=== PATIENT | male | born 1940 | race Caucasian/White ===

== ENCOUNTER 2021-03-10 04:38 | Observation (INO) | payer OTHER, BC ==
--- OUTSIDE RECORDS SUMMARY | 2021-03-10 04:41 | XMS REPORT | Continuity of Care Document ---
:1940 Author Organization [facility] t Address [address] [place] [address] Care Team Providers Name Role Phone CHUCK Attending Clinician Unavailable CHUCK Attending Clinician Unavailable Pcp, Does Not Have A Attending Clinician Danyel Burrell MD Attending Clinician Burak Carter MD Attending Clinician Serene Hernandez DO Attending Clinician Doctor Unassigned, Name Attending Clinician Unavailable ERWIN CALLEJAS Attending Clinician Unavailable Payers Payer Name Policy Type Policy Number Effective Date Expiration Date S ource MEDICARE PART A [id number] 2006 AND B 00:00:00 Problems Condition Condition Condition Status Onset Resolution Last Treating Co mments Source Name Details Category Date Date Treatment Clinician Date History of History of Problem Resolve [facility] hemorrhoid hemorrhoid d it y of s s [place] [facility] History of History of Problem Resolve [facility] Hernia Hernia d ity of [place] [facility] History of History of Problem Resolve [facility] kidney kidney d ity of stones stones [place] [facility] History of History of Problem Resolve [facility] pneumonia pneumonia d ity of [place] [facility] ans Trochanter Trochanter Problem Active U nivers ic ic ity of bursitis bursitis [place] of left of left Physici hip hip ans Osteoarthr Osteoarthr Problem Active U nivers itis of itis of ity of acromiocla acromiocla [place] vicular vicular Physici joint joint ans Cervical Cervical Problem Active Unive rs strain strain ity of [place] [facility] ans Glenoid Glenoid Problem Active Univers labrum labrum ity of tear, tear, [place] initial initial Physici encounter encounter ans Left Left Problem Active Univers supraspina supraspina it y of tus tus [place] tendinitis tendinitis Ph ysici ans Partial Partial Problem Active Univers tear of tear of ity of left left [place] subscapula subscapula Ph ysici ris ris ans tendon, tendon, initial initial encounter encounter Tear of Tear of Problem Active Univers left left ity of glenoid glenoid [place] labrum, labrum, Physici initial initial ans encounter encounter Adhesive Adhesive Problem Active Unive rs capsulitis capsulitis it y of of left of left [place] shoulder shoulder Physic i ans Subscapula Subscapula Problem Active U nivers ris ris [place] of tendinitis tendinitis [place] of left of left Physici shoulder shoulder ans Superior Superior Problem Active Unive rs glenoid glenoid ity of labrum labrum [place] lesion of lesion of Phys ici right right ans shoulder, shoulder, initial initial encounter encounter Rupture of Rupture of Problem Active U nivers right right ity of supraspina [place]ina [place] tus tus Physici tendon, tendon, ans initial initial encounter encounter Rupture of Rupture of Problem Active U nivers supraspina supraspina it y of tus tus [place] tendon, tendon, Physici left, left, ans initial initial encounter encounter Allergies, Adverse Reactions, Alerts Allergy Allergy Status Severity Reaction(s) Onset Inactive Treating Comm ents Source Name Type Date Date Clinician Cipro Allergy Active Univers to drug ity of (finding [place] ) Physici ans codeine Allergy Active Univers to drug ity of (finding [place] ) Physici ans sulfa Allergy Active Univers to drug ity of (finding [place] ) Physici ans Family History Family Member Diagnosis Comments Start Date Stop Date Source Unknown Family history of Family History Uni versity of Family Member diabetes mellitus [place] [facility] Unknown Family history of Family History Uni versity of Family Member arthritis [place] [facility]i cians Unknown Family history of Family History Uni versity of Family Member cerebrovascular [place] [facility] accident (CVA) Medications Ordered Filled Start Stop Current Ordering Indication Dosage Frequency Signature Comments Components Source Medication Medication Date Date Medication? Clinician (SIG) Name Name Meloxicam Meloxicam Yes SHEY CAGLE TAKE 1 Univers 15 MG Oral 15 MG Oral 2-09 M.D. TABLET BY ity of Tablet Tablet 00:00: MOUTH [place] 00 DAILY Physici NEEDED ans traMADol traMADol Yes SHEY CAGLE Q4H TAKE 1 TO Univers HCl - 50 MG HCl - 50 MG 2-08 M.D. 2 TABLETS ity of Oral Tablet Oral Tablet 00:00: EVERY 4 [place] 00 HOURS Physici NEEDED FOR ans PAIN. Methocarbam Methocarbam 2017-08 Yes AILEEN Q0.3333D TAKE 1 Univers ol 500 MG ol 500 MG 0-09 LI-MAHAD TABLET 3 ity of Oral Tablet Oral Tablet 00:00: JÚNIOR M.D. TIMES [place] 00 DAILY. Physici ans Propafenone Propafenone Yes U nivers HCl TABS HCl TABS ity of [place] Physici ans Tamsulosin Tamsulosin Yes Uni vers HCl - 0.4 HCl - 0.4 ity o f MG Oral MG Oral [place] Capsule Capsule Physici ans Levothyroxi Levothyroxi Yes U nivers ne Sodium ne Sodium ity o f TABS TABS [place] [facility] ans Procedures Procedure Date / Time Performing Clinician Source Performed MR Shoulder w/wo 2020-10-16 00:00:00 [facility] contrast [id number] Physicians MR Shoulder w contrast 2020-09-15 00:00:00 [facility] [id number] Physicians MR Shoulder w contrast 2019-08-06 00:00:00 [facility] [id number] Physicians MRI Spine cervical wo 2019-08-06 00:00:00 [facility] contrast [id number] Physicians [U] XRAY SHOULDER MIN 2 2019-02-12 00:00:00 [facility] LEFT [id number] Physicians MR Shoulder wo contrast 2018-10-06 00:00:00 [facility] 47955 Physicians [U] XRAY HIP UNILATERAL 2018-03-27 00:00:00 [facility] MIN 2 S LEFT [id number] Physicians [U] XRAY SPINE 2018-03-27 00:00:00 [facility] [place] LUMBOSACRAL 2 OR 3 S Physician s [id number] MR Shoulder wo contrast 2018-03-07 00:00:00 [facility] 07870 Physicians [U] XRAY SHOULDER MIN 2 2018-03[facility] SPINE CERVICAL 2018-03-02 00:00:00 [facility] 2 OR 3 S 53070 Physicians History of Hernia [facility] repair Physicians Plan of Care Planned Activity Planned Date Details Comments Source Diagnostic Test 2018-10-06 MR Shoulder wo [facility] Pending 00:00:00 contrast [id number] Physicians [code = 16892] Diagnostic Test 2018-10-06 MR Shoulder wo [facility] Pending 00:00:00 contrast [id number] Physicians [code = 67550] Encounters Start End Encounter Admission Attending Care Care Encounter Source Date/Time Date/Time Type Type Clinicians Facility Department ID 2021-01-13 Outpatient SHEY CAGLE [facility] [id number] [place] 11:46:07 [place] 2021-01-13 Outpatient SHEY CAGLE [facility] [id number] [place] 11:45:01 [facility] 2021-01-06 Outpatient SHEY CAGLE [facility] [id number] [place] 12:33:48 [facility] 2021-01-06 Outpatient SHEY CAGLE [facility] [id number] [place] 11:22:51 [facility] 2021-01-01 Outpatient SHEY CAGLE [facility] [id number] [place] 12:19:34 [facility] 2021-01-01 Outpatient SHEY CAGLE [facility] [id number] [place] 12:19:02 [facility] 2020-12-26 Outpatient SHEY CAGLE [facility] [id number] [place] 16:09:30 [facility] 2021-02-18 2021-02-18 Emergency E [facility]BL [facility] [id number] [facility]BL 09:34:00 09:34:00 2021-02-10 2021-02-10 Emergency E [facility]BL MED [id number] MHBL 10:07:00 10:07:00 2021-01-27 2021-01-27 Office Shey Cagle [facility] [id number] 10:16:35 10:57:13 Visit [place] [id number] MEDICAL [id number] PLAZA 1 [id number] 2021-01-20 2021-01-20 Office Shey Cagle [facility] [id number] 10:37:29 13:04:49 Visit [place] [id number] MEDICAL [id number] PLA[place] 0 [id number] 2021-01-13 2021-01-13 Office Shey Cagle [facility] [id number] 10:27:11 11:43:26 Visit [place] [id number] MEDICAL [id number] PLA[place] 2 [id number] 2021-01-06 2021-01-06 Office Shey Cagle [facility] [id number] 11:22:45 15:21:16 Visit [place] [id number] MEDICAL [id number] PLA[place] 3 [id number] 2021-01-01 2021-01-01 Office ChuckFátimaan [facility] [id number] 09:47:54 12:20:16 Visit [place] [id number] MEDICAL [id number] [place] 7 [id number] 2020-12-04 2020-12-04 Appointmen DELICIA CAGLE [facility] [id number] Univers 15:45:00 15:45:00 t; SHEY CAGLE M.D. - [place] Lockett M.D. [place] [facility] ans 2020-11-18 2020-11-18 Appointmen DELICIA [facility] [id number] Univers 15:15:00 15:15:00 t; SHEY CAGLE M.D. - [place] Cathryn M.D. [place] [facility] ans 2020-11-13 2020-11-13 Outpatient MHSE MHSE [id number] MH 07:13:00 07:13:00 [facility] 2020-11-08 2020-11-08 Telephone Pcp, RUST [id number] 00:00:00 00:00:00 Patient Scooter [id number] Does Not Renu 4.2.7.2.686 Have A Professio [id number] [facility] 204 [facility] 2020-11-05 2020-11-05 Emergency Harkey, RUST [id number] 13:40:00 17:38:00 Kwesi A [facility] [id number] League 4.2.7.2.686 [facility] [id number] [address] ([facility]) 2020-11-01 2020-11-01 Emergency Yariil, RUST [id number] 06:18:00 09:48:00 Alejandro Burak [place] 350.1.13.10 [place] 4.2.7.2.686 [place] [id number] 2020-10-31 2020-10-31 Emergency David, RUST [id number] 08:01:00 09:37:00 Jen Helms 350.1.13.10 [place] 4.2.7.2.686 [facility] [id number] 2020-10-31 2020-10-31 Orders Doctor JET [id number] 00:00:00 00:00:00 Only Unassigned, STAR 350.1.13.10 [place] [facility] 4.2.7.2.686 [id number] 2020-10-23 2020-10-23 Appointmen DELICIA CAGLE [facility] [id number] Univers 09:15:00 09:15:00 t; SHEY CAGLE M.D. i ty of EVAN, M.D. [place] [facility] 2020-10-21 2020-10-21 Appointmen DELICIA CAGLE [facility] [id number] Univers 14:15:00 14:15:00 t; SHEY CAGLE M.D. i ty of EVAN, M.D. [place] [facility] 2020-09-30 2020-09-30 Appointmen DELICIA CAGLE [facility] [id number] [facility] 16:00:00 16:00:00 t; SHEY CAGLE M.D. [facility] cecilia KAT M.D. [place] [facility] 2020-09-11 2020-09-11 Appointmen CHUCK [facility] [id number] Univers 16:00:00 16:00:00 t; SHEY CAGLE M.D. - [place] Lockett M.D. [place] [facility] 2020-09-09 2020-09-09 Appointmen DELICIA CAGLE [facility] [id number] Univers 16:00:00 16:00:00 t; SHEY CAGLE M.D. i Анна M.D. [place] [facility] 2020-02-05 2020-02-05 Appointmen CHUCK [facility] [id number] Univers 09:45:00 09:45:00 t; SHEY CAGLE M.D. - [place] Lock[place] M.D. [place] [facility] ans 2019-10-30 2019-10-30 Appointmen CHUCK [facility] [id number] Univers 10:15:00 10:15:00 t; SHEY CAGLE M.D. i Анна M.D. [facility] 2019-08-28 2019-08-28 Appointmen CHUCK [facility] [id number] Univers 10:15:00 10:15:00 t; SHEY CAGLE M.D. i Анна M.D. [facility] 2019-05-22 2019-05-22 Appointmen CHUCK [facility] [id number] Univers 10:00:00 10:00:00 t; SHEY CAGLE M.D. - [place] Lock[place] [facility]. [facility] 2019-04-17 2019-04-17 Appointmen ERWIN [facility] [id number] Univers 10:00:00 10:00:00 t; Steve TAO ANDREW [place] Misti GALLAGHER M.D. [facility] 2019-04-10 2019-04-10 Appointmen DELICIA CAGLE [facility] [id number] Univers 10:30:00 10:30:00 t; SHEY CAGLE M.D. i ty of EVAN, M.D. [place] [facility] 2019-02-26 2019-02-26 Outpatient MHSE MHSE [id number] 12:18:00 12:18:00 [facility] 2019-02-13 2019-02-13 Appointmen DELICIA CAGLE [facility] [id number] Univers 10:00:00 10:00:00 t; SHEY CAGLE M.D. - [facility] Misti KAT [place] [facility] ans 2019-01-23 2019-01-23 Appointmen ERWIN NES[facility] [id number] Univers 13:15:00 13:15:00 t; ERWIN CALLEJAS, - [place], [place] Misti GALLAGHER M.D. ans 2019-01-16 2019-01-16 Appointmen ERWIN NESBITT [facility] [id number] Univers 13:00:00 13:00:00 [place] Misti GALLAGHER M.D. ans 2018-12-07 2018-12-07 Appointmen ERWIN [facility] [id number] Univers 13:00:00 13:00:00 t; ERWIN CALLEJAS, at [place], [place] Misti GALLAGHER M.D. ans 2018-10-26 2018-10-26 Appointmen ERWIN [facility] [id number] Univers 13:30:00 13:30:00 t; ERWIN CALLEJAS, [place], [place] Misti GALLAGHER M.D. ans 2018-10-04 2018-10-04 Appointmen ERWIN [facility] [id number] Univers 11:00:00 11:00:00 t; ERWIN CALLEJAS, at [place], [place] Misti GALLAGHER M.D. ans 2018-08-24 2018-08-24 Appointmen ERWIN [facility] [id number] Univers 13:00:00 13:00:00 t; ERWIN CALLEJAS, at [place], [place] Misti GALLAGHER M.D. ans 2018-06-27 2018-06-27 Appointmen ERWIN [facility] [id number] Univers 10:30:00 10:30:00 t; [place] Misti GALLAGHER M.D. ans 2018-06-21 2018-06-21 Appointmen KALEBNG [facility] [id number] Univers 11:00:00 11:00:00 t; ALAINAMAHADTRAN CALLEJAS, at [place], [place] Misti GALLAGHER M.D. ans 2018-05-16 2018-05-16 Appointmen KALEBNG [facility] [id number] Univers 11:00:00 11:00:00 t; [place] Misti GALLAGHER M.D. ans 2018-05-16 2018-05-16 Appointmen ERWIN [facility] [id number] Univers 10:30:00 10:30:00 t; ERWIN CALLEJAS, at [place], [place] Misti GALLAGHER M.D. ans 2018-04-18 2018-04-18 Appointmen ERWIN [facility] [id number] Univers 13:00:00 13:00:00 t; [place] Misti GALLAGHER M.D. ans 2018-03-29 2018-03-29 Appointmen KARL-MAHAD [facility] [id number] Univers 11:00:00 11:00:00 [facility]AS, Orthopedics Misti Bravo M.D. ans 2018-03-28 2018-03-28 Appointmen KARL-MAHAD [facility] [id number] Univers 13:30:00 13:30:00 t[facility] [place] Misti GALLAGHER M.D. ans 2018-03-07 2018-03-07 Appointmen KARLRAMESH [facility] [id number] Univers 13:30:00 13:30:00 t; ERWIN CALLEJAS [facility] ty of AILEEN CALLEJAS, Orthopedics Misti Bravo M.D. ans Results Test Test Test Results Result Source Description Time Comments Comments [U] XRAY 2019-02- Images acquired, not Univ ersity of SHOULDER MIN 2 09 reported on this accession [place] VWS LEFT [id number] 09:14:00 number. Physicians MR Shoulder wo 2018-10- EXAM: Left shoulder wo [facility] [id number] contrast MRIINDICATION: - [place] 12:39:00 S43.82XA Sprain of other Physicians specified parts of left shouldergirdle, initial encounterCOMPARISON: MRI of the left shoulder from 03/18/2018TECHNIQUE: Multiplanar, multisequence magnetic resonance imaging of the leftshoulder was performed without the administration of intravenous gadoliniumcontrast.FINDING S:Glenohumeral joint: Negative for acute bony fracture or joint dislocation. Tearthroughout the inferior and anteroinferior glenoid labrum is seen. Type IIbiceps labral complex is seen. There is no high-grade chondral defect of thehumeral head or glenoid fossa. Synovitis in the rotator interval is seen. Thereis severe thickening and hyperintense signal of the axillary pouch.Constellation of findings are suspicious for adhesive capsulitis. Mildsubcortical cystic changes along the greater and lesser tuberosities are seen.Osseous acromion complex: The acromion is type II in morphology and showslateral downsloping with mild narrowing of the supraspinatus outlet laterally.No os acromiale is seen. Mild to moderate AC joint osteoarthrosis is seen withchondral thinning and periarticular cystic change.Rotator cuff tendons: Mild supraspinatus tendinosis is seen with superimposedlow-grade bursal surface fraying of the distal tendon. Mild subscapularistendinosis is also seen with low to moderate grade interstitial tearing of thedistal tendon, slightly progressed since prior exam from 03/18/2018. Theinfraspinatus and teres minor tendons are intact.Biceps tendon: Intact and without subluxation or dislocation. Incidental noteis made of an accessory slip of the long head of the biceps tendon whichinserts on the supraspinatus tendon.Soft tissues: Trace fluid in the subacromial-subdeltoid bursa is seen. Nomuscular atrophy or denervation edema is noted.IMPRESSION:1. Constellation of findings suspicious for adhesive capsulitis.2. Tear throughout the inferior and anteroinferior glenoid labrum.3. Mild supraspinatus tendinosis with low-grade bursal surface fraying of thedistal tendon.4. Mild subscapularis tendinosis with low to moderate grade interstitialtearing, slightly progressed since prior exam from 03/18/2018.5. 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 Please correlate forsubacromial impingement.SL: [id number] by: Yasmani Alfredoictated Date/time: 10/16/18 14:28Electronically Signed by: Yasmani Alfredo MD 10/16/1913:40FINAL REPORT MR Shoulder wo 2018-03- EXAM: Left shoulder wo [facility] [id number] contrast MRIINDICATION: [place] 12:30:00 S43.439A [place] [facility] glenoid labrum lesion of unspecified shoulder,initial encounter - S43.439A [place] glenoid labrum lesion of unspecifiedshoulder, initial encounterCOMPARISON: None.TECHNIQUE: Multiplanar, multisequence magnetic resonance imaging of the leftshoulder was performed without the administration of intravenous gadoliniumcontrast.FINDING S:Glenohumeral joint: Negative for acute bony fracture or joint dislocation. Nolabral tear or capsular abnormality is seen. There is no high-grade chondraldefect of the humeral head or glenoid fossa.Osseous acromion complex: The acromion is type II in morphology and shows mildanterior downsloping with mild narrowing of the supraspinatus outlet laterally.No os acromiale is seen. Mild AC joint osteoarthrosis is noted with mildchondral thinning, synovitis, and periarticular cystic change.Rotator cuff tendons: Mild supraspinatus and subscapularis tendinosis is seen.Low-grade interstitial tearing in the distal subscapularis tendon is seen. Theinfraspinatus and teres minor tendons are intact.Biceps tendon: Intact and without subluxation or dislocation.Soft tissues: Trace fluid in the subacromial-subdeltoid bursa is seen. Nomuscular atrophy or denervation edema is noted.IMPRESSION:1. Mild supraspinatus and subscapularis tendinosis.2. Low-grade interstitial tearing of the distal subscapularis tendon.3. Mild AC joint osteoarthrosis with mild anterior downsloping of the acromion,producing mild narrowing of the supraspinatus outlet laterally. Pleasecorrelate for subacromial impingement.4. Mild subacromial-subdeltoid bursitis.SL: [id number] by: Yasmani Alfredo MDDictated Date/time: 03/18/18 14:05Electronically Signed by: Yasmani Alfredo MD 03/18/1814:11FINAL REPORT
--- NOTE | 2021-03-10 05:17 | P.HP ---
Certification for Inpatient Patient admitted to: Observation With expected LOS: <2 Midnights Patient will require the following post-hospital care: None Practitioner: I am a practitioner with admitting privileges, knowledge of patient current condition, hospital course, and medical plan of care. Services: Services provided to patient in accordance with Admission requirements found in Title 42 Section 412.3 of the Code of Federal Regulations Patient History Date of Service: 03/10/21 Primary Care Provider: Dr. Gonzalez Reason for admission: Chest pain History of Present Illness: 80-year-old male with history of atrial fibrillation, BPH, MS presents emergency department for chest pain. Patient reports chest pain began around 02 100 this morning radiates to bilateral shoulders described as tightness with some associated shortness of breath. Patient has a mild ST depressions in 2 3/aVF. Patient was started on heparin drip in the emergency department ED provider wishes to admit for chest pain. Allergies ciprofloxacin [From Cipro] Allergy (Verified 10/11/13 21:46) Shortness of breath ciprofloxacin HCl [From Cipro] Allergy (Verified 10/11/13 21:46) Shortness of breath codeine Allergy (Verified 10/11/13 21:46) Shortness of breath Sulfa (Sulfonamide Antibiotics) Allergy (Verified 10/11/13 21:46) Shortness of breath Home Medications: Aspirin [Ilya Chewable Aspirin] 81 mg PO DAILY 10/11/13 Digoxin [Lanoxin*] 0.25 mg PO DAILY 10/11/13 Propafenone [Rythmol*] 150 mg PO TID 10/11/13 - Past Medical/Surgical History Diabetic: No -: AFIB on aspirin -: MS -: TURP -: HERNIA REPAIR Psychosocial/ Personal History: Lives at home, alone - Family History Father -: Diabetes - Social History Smoking Status: Never smoker Alcohol use: No CD- Drugs: No Caffeine use: No Place of Residence: Home Review of Systems 10-point ROS is otherwise unremarkable Respiratory: SOB with Excertion Cardiovascular: Chest Pain Physical Examination - Physical Exam General: Alert, In no apparent distress, Oriented x3 HEENT: Atraumatic, PERRLA, Mucous membr. moist/pink, EOMI Neck: Supple, 2+ carotid pulse no bruit, No LAD Respiratory: Clear to auscultation bilaterally, Normal air movement Cardiovascular: Regular rate/rhythm, Normal S1 S2 Gastrointestinal: Normal bowel sounds, No tenderness Musculoskeletal: No tenderness Integumentary: No rashes Neurological: Normal speech, Normal strength at 5/5 x4 extr, Normal tone, Normal affect Assessment and Plan - Plan Assessment: Chest pain rule out ACS Atrial fibrillation not on chronic anticoagulation therapy History of MS BPH Plan: Chest pain rule out ACS: Patient still with mild chest tightness, small depressi ons and leads II, III and aVF. Patient was started on heparin drip in the emergency department also on aspirin, statin therapy. Will hold off on beta- chuck as patient takes Rythmol for A. fib. Cardiology consult in place. Appreciate further input from cardiology, last dose test was a few years ago has never had heart catheterization. Atrial fibrillation not on chronic anticoagulation therapy: Continue medication Rythmol after dose is confirmed, on heparin drip at this time. History of MS: Continue medications, stable BPH: Continue home medications, stable DVT PPX: Heparin Code status: Full Discharge Plan: Home Plan to discharge in: 24 Hours - Advance Directives Does patient have a Living Will: Yes Does patient have a Durable POA for Healthcare: No - Code Status/Comfort Care Code Status Assessed: Yes (Full code) Critical Care: No Time Spent Managing Pts Care (In Minutes): 55
--- NOTE | 2021-03-10 05:20 | ER ---
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 ak2 Coronavirus screen: Client denies travel out of the [place] in the last 14 days. At this time, the client does not indicate any symptoms associated with coronavirus-19. Ebola Screen: Patient negative for fever greater than or equal to 101.5 degrees Fahrenheit, and additional compatible Ebola Virus Disease symptoms Patient denies exposure to infectious person. Patient denies travel to an Ebola-affected area in the 21 days before illness onset. No symptoms or risks identified at this time. Initial Sepsis Screen: Does the patient meet any 2 criteria? No. Patient's initial sepsis screen is negative. Does the patient have a suspected source of infection? No. Patient's initial sepsis screen is negative. Risk Assessment: Do you want to hurt yourself or someone else? Patient reports no desire to harm self or others. Onset of symptoms was March 10, 2021. 05:41 Method Of Arrival: Ambulatory ak2 05:41 Acuity: ELIUD 3 ak2 Triage Assessment: 05:45 General: Behavior is calm, cooperative. ak2 Historical: - Allergies: 05:43 Ciprofloxacin HCl; ak2 05:43 Codeine; ak2 05:43 Sulfa (Sulfonamide Antibiotics); ak2 - Home Meds: 05:43 digoxin 125 mcg Oral tab 1 tab once daily [Active]; Flomax 0.4 mg Oral cp24 1 cap once ak2 daily [Active]; Rythmol 150 mg Oral tab 1 tab every 8 hours [Active]; - Immunization history:: Adult Immunizations up to date. - Social history:: Smoking status: unknown. - Family history:: not pertinent. Screenin:43 Abuse screen: Denies threats or abuse. Denies injuries from another. Nutritional ak2 screening: No deficits noted. Tuberculosis screening: No symptoms or risk factors identified. Fall Risk None identified. Assessment: 05:43 Reassessment: Patient and/or family updated on plan of care and expected duration. Pain ak2 level reassessed. General: Appears in no apparent distress. Pain: Denies pain. Pain does not radiate. Pain began 3 hours ago. Neuro: No deficits noted. Cardiovascular: Rhythm is sinus rhythm. Respiratory: No deficits noted. Vital Signs: 05:05 BP 167 / 89; Pulse 88; Resp 18; Temp 98.1(O); Pulse Ox 100% on R/A; Weight 58.97 kg tt3 (R); Height 5 ft. 8 in. (172.72 cm) (R); Pain 2/10; 05:41 BP 163 / 88; Pulse 87; Resp 16; Pulse Ox 98% on R/A; ak2 05:05 Body Mass Index 19.77 (58.97 kg, 172.72 cm) tt3 ED Course: 04:41 Patient arrived in ED. am2 04:51 Arnold Lai MD is Attending Physician. norris 05:06 Missed attempt(s): 20 gauge in left forearm. Bleeding controlled, band aid applied, tt3 catheter tip intact. 05:19 Wilder Coats DO is Hospitalizing Provider. norris 05:20 Inserted saline lock: 20 gauge in right forearm, using aseptic technique. Blood oe collected. 05:43 Triage completed. ak2 05:43 No provider procedures requiring assistance completed. Patient maintains SpO2 ak2 saturation greater than 95% on room air. 05:43 Patient has correct armband on for positive identification. phototypesetting equipment monitor on. Pulse ak2 ox on. NIBP on. 05:45 Patient placed in the treatment room, on a stretcher. ak2 15:44 Trinity Ross, CHEVY is Primary Nurse. ld1 16:07 Patient admitted, IV remains in place. intact, bleeding controlled, No redness/swelling ld1 at site. Administered Medications: 05:26 Drug: NS 0.9% 1000 ml Route: IV; Rate: 125 ml/hr; Site: right forearm; ak2 05:26 Drug: Pepcid (famotidine) 20 mg Route: IVP; Site: right femoral; ak2 05:26 Drug: Lopressor (metoprolol TARTRATE) 50 mg Route: PO; ak2 05:30 Drug: Aspirin 162 mg Route: PO; ak2 06:06 Drug: Heparin (SIRISHA Beyerip) 12 units/kg/hr - (HEParin 71328 units, D5W 500 ml) ak2 {Co-Signature: em (Theron Turner RN).} Route: IV; Rate: calculated rate; Site: right forearm; 06:07 Drug: Heparin (SC-Bolus No thrombolytic) - HEParin 60 units/kg {Co-Signature: em (Theron Turner RN).} Route: IVP; Site: right forearm; 06:15 Drug: PlaVIX (clopidogrel) 300 mg Route: PO; ak2 08:19 Not Given (Patient Refused): morphine 2 mg IVP once; (PAIN>8) RASS on ADMN: Combtv4, aa5 Very Agttd3, Agttd2, Rstlss1, AlertClm0, Drwsy-1, LtSdtn-2, ModSdtn-3, DpSdtn-4, UnArsble-5 x2 08:19 Not Given (Patient Refused): Zofran (Ondansetron) 4 mg IVP once; over 2 minutes aa5 Outcome: 05:19 Decision to Hospitalize by Provider. norris 16:06 Admitted to Med/surg accompanied by tech, via wheelchair, room 221, with chart, Report ld1 called to CHEVY Zhang 16:06 Condition: stable 16:06 Instructed on the need for admit. 16:07 Patient left the ED. ld1 Signatures: Arnold Lai MD MD cha Espinosa, Orlando oe Moreno, Amanda am2 Isaac Larios tt3 Trinity Ross RN RN ld1 Buck Ahmadi2 Deann Hein RN aa5 Theron Turner RN em
--- NOTE | 2021-03-10 05:20 | EDPHYS ---
Physician Documentation [facility] Name: Nader Blas Age: 80 yrs Sex: Male : 1940 Arrival Date: 03/10/2021 Time: 04:41 Bed 15 Private MD: ED Physician Arnold Lai HPI: 03/10 05:14 This 80 yrs old Male presents to ER via Unassigned with complaints of Chest norris Pain > 30 y/o. 05:14 The patient or guardian reports chest pain that is located primarily in the substernal norris area. Onset: just prior to arrival. The pain does not radiate. Associated signs and symptoms: Pertinent positives: shortness of breath. The chest pain is described as a heaviness, a pressure. Duration: The patient or guardian reports multiple episodes, with no pattern. Modifying factors: The symptoms are alleviated by nothing. the symptoms are aggravated by nothing. Severity of pain: At its worst the pain was mild in the emergency department the pain is unchanged. The patient has experienced similar episodes in the past, a few times. Historical: - Allergies: 05:43 Ciprofloxacin HCl; ak2 05:43 Codeine; ak2 05:43 Sulfa (Sulfonamide Antibiotics); ak2 - Home Meds: 05:43 digoxin 125 mcg Oral tab 1 tab once daily [Active]; Flomax 0.4 mg Oral cp24 1 cap once ak2 daily [Active]; Rythmol 150 mg Oral tab 1 tab every 8 hours [Active]; - Immunization history:: Adult Immunizations up to date. - Social history:: Smoking status: unknown. - Family history:: not pertinent. ROS: 05:14 Constitutional: Negative for fever, chills, and weight loss, Eyes: Negative for injury, norris pain, redness, and discharge, ENT: Negative for injury, pain, and discharge, Neck: Negative for injury, pain, and swelling, Abdomen/GI: Negative for abdominal pain, nausea, vomiting, diarrhea, and constipation, Back: Negative for injury and pain, : Negative for injury, bleeding, discharge, and swelling, MS/Extremity: Negative for injury and deformity, Skin: Negative for injury, rash, and discoloration, Neuro: Negative for headache, weakness, numbness, tingling, and seizure, Psych: Negative for depression, anxiety, suicide ideation, homicidal ideation, and hallucinations, Allergy/Immunology: Negative for hives, rash, and allergies, Endocrine: Negative for neck swelling, polydipsia, polyuria, polyphagia, and marked weight changes, Hematologic/Lymphatic: Negative for swollen nodes, abnormal bleeding, and unusual bruising. 05:14 Cardiovascular: Positive for chest pain. 05:14 Respiratory: Positive for shortness of breath. Exam: 05:14 Constitutional: This is a well developed, well nourished patient who is awake, alert, norris and in no acute distress. Head/Face: Normocephalic, atraumatic. Eyes: Pupils equal round and reactive to light, extra-ocular motions intact. Lids and lashes normal. Conjunctiva and sclera are non-icteric and not injected. Cornea within normal limits. Periorbital areas with no swelling, redness, or edema. ENT: Nares patent. No nasal discharge, no septal abnormalities noted. Tympanic membranes are normal and external auditory canals are clear. Oropharynx with no redness, swelling, or masses, exudates, or evidence of obstruction, uvula midline. Mucous membranes moist. Neck: Trachea midline, no thyromegaly or masses palpated, and no cervical lymphadenopathy. Supple, full range of motion without nuchal rigidity, or vertebral point tenderness. No Meningismus. Chest/axilla: Normal chest wall appearance and motion. Nontender with no deformity. No lesions are appreciated. Cardiovascular: Regular rate and rhythm with a normal S1 and S2. No gallops, murmurs, or rubs. Normal PMI, no JVD. No pulse deficits. Respiratory: Lungs have equal breath sounds bilaterally, clear to auscultation and percussion. No rales, rhonchi or wheezes noted. No increased work of breathing, no retractions or nasal flaring. Abdomen/GI: Soft, non-tender, with normal bowel sounds. No distension or tympany. No guarding or rebound. No evidence of tenderness throughout. Back: No spinal tenderness. No costovertebral tenderness. Full range of motion. Male : Normal genitalia with no discharge or lesions. Skin: Warm, dry with normal turgor. Normal color with no rashes, no lesions, and no evidence of cellulitis. MS/ Extremity: Pulses equal, no cyanosis. Neurovascular intact. Full, normal range of motion. Neuro: Awake and alert, GCS 15, oriented to person, place, time, and situation. Cranial nerves II-XII grossly intact. Motor strength 5/5 in all extremities. Sensory grossly intact. Cerebellar exam normal. Normal gait. Psych: Awake, alert, with orientation to person, place and time. Behavior, mood, and affect are within normal limits. 05:14 ECG was reviewed by the Attending Physician. 05:20 Musculoskeletal/extremity: DVT Exam: No signs of deep vein thrombosis. no pain, no norris swelling, no tenderness, negative Homans' sign noted on exam, no appreciated bluish discoloration, no erythema, no increased warmth. Vital Signs: 05:05 BP 167 / 89; Pulse 88; Resp 18; Temp 98.1(O); Pulse Ox 100% on R/A; Weight 58.97 kg tt3 (R); Height 5 ft. 8 in. (172.72 cm) (R); Pain 2/10; 05:41 BP 163 / 88; Pulse 87; Resp 16; Pulse Ox 98% on R/A; ak2 05:05 Body Mass Index 19.77 (58.97 kg, 172.72 cm) tt3 MDM: 04:51 Patient medically screened. norris 05:16 Differential diagnosis: abnormal EKG, acute myocardial infarction, anxiety, coronary norris artery disease congestive heart failure cholecystitis, Cholelithiasis costochondritis, gastroesophageal reflux disease (GERD), hiatal hernia, myocarditis, pneumonia, pneumothorax, pulmonary embolus, stable angina, unstable angina. HEART Score: History: Moderately Suspicious (1), ECG: Non specific repolarization disturbance / LBTB / PM (1), Age: > or = 65 years (2), Risk Factors: > or = 3 Risk factors for atherosclerotic disease (2), [Hypercholesterolemia] [Hypertension] [+ Family HX] Troponin: < or = 1 x Normal Limit (0). The patient was given aspirin in the Emergency Department. The patient's deep vein thrombosis risk score was calculated as follows: Total Score: 0. This patient was found to be at low risk for a deep vein thrombosis by using the Well's assessment criteria. The patient's pulmonary embolism risk score was calculated as follows: Total Score: 0-2 points. This patient was found to be at low risk for a pulmonary embolism by using the Well's assessment criteria. JULIA Risk Score: TOTAL SCORE = 0. Data reviewed: vital signs, nurses notes, lab test result(s), EKG, radiologic studies, CT scan, plain films. Data interpreted: quality assurance monitor chassis: rate is 88 beats/min, rhythm is regular, Pulse oximetry: on room air is 100 %. Test interpretation: by ED physician or midlevel provider: ECG, plain radiologic studies. Counseling: I had a detailed discussion with the patient and/or guardian regarding: the historical points, exam findings, and any diagnostic results supporting the discharge/admit diagnosis, the presence of at least one elevated blood pressure reading (>120/80) during this emergency department visit, lab results, radiology results, the need for outpatient follow up, the need for further work-up and treatment in the hospital. 03/10 04:55 Order name: Basic Metabolic Panel [facility] 03/10 04:55 Order name: CBC with Diff; Complete Time: 06:00 [facility] 03/10 04:55 Order name: LFT's [facility] 03/10 04:55 Order name: Magnesium [facility] 03/10 04:55 Order name: NT PRO-BNP [facility] 03/10 04:55 Order name: PT-INR; Complete Time: 06:00 [facility] 03/10 04:55 Order name: Troponin (emerg Dept Use Only) [facility] 03/10 04:55 Order name: Lipase [facility] 03/10 05:05 Order name: COVID-19 : Document "Date of Symptom Onset" if Symptomatic. bb 03/10 06:01 Order name: Digoxin [facility] 03/10 06:21 Order name: SARS-COV-2 RT PCR [facility] 03/10 07:02 Order name: Digoxin Level [facility] 03/10 10:05 Order name: Troponin I [facility] 03/10 10:05 Order name: Lipid Profile [facility] 03/10 04:55 Order name: XRAY Chest (1 view) [facility] 03/10 04:55 Order name: EKG; Complete Time: 04:56 [facility] 03/10 04:55 Order name: CT Aorta for Dissection [facility] 03/10 07:18 Order name: CT [facility] 03/10 07:43 Order name: RAD [facility] 03/10 10:05 Order name: T4 Free [facility] 03/10 10:05 Order name: Thyroid Stimulating Hormone [facility] 03/10 04:55 Order name: Cardiac monitoring [facility] 03/10 04:55 Order name: EKG - Nurse/Tech [facility] 03/10 04:55 Order name: IV Saline Lock [facility] 03/10 04:55 Order name: Labs collected and sent [facility] 03/10 04:55 Order name: O2 Per Protocol [facility] 03/10 04:55 Order name: O2 Sat Monitoring [facility] 03/10 04:55 Order name: Urine Dipstick-Ancillary (obtain specimen) [facility] EC:14 Rate is 85 beats/min. Rhythm is regular. QRS [place] is Normal. W[place] interval is normal. QRS norris interval is normal. QT interval is normal. No Q waves. T waves are Normal. ST Segment is depressed in leads II, III, aVF. Clinical impression: NSR w/ Non-specific ST/T Changes. Interpreted by me. Reviewed by me. Administered Medications: 05:26 Drug: NS 0.9% 1000 ml Route: IV; Rate: 125 ml/hr; Site: right forearm; ak2 05:26 Drug: Pepcid (famotidine) 20 mg Route: IVP; Site: right femoral; ak2 05:26 Drug: Lopressor (metoprolol TARTRATE) 50 mg Route: PO; ak2 05:30 Drug: Aspirin 162 mg Route: PO; ak2 06:06 Drug: Heparin (VT Drip) 12 units/kg/hr - (HEParin 13929 units, D5W 500 ml) ak2 {Co-Signature: araceli (Theron Turner RN).} Route: IV; Rate: calculated rate; Site: right forearm; 06:07 Drug: Heparin (VT-Bolus No thrombolytic) - HEParin 60 units/kg {Co-Signature: araceli (Theron Turner RN).} Route: IVP; Site: right forearm; 06:15 Drug: PlaVIX (clopidogrel) 300 mg Route: PO; ak2 08:19 Not Given (Patient Refused): morphine 2 mg IVP once; (PAIN>8) RASS on ADMN: Combtv4, aa5 Very Agttd3, Agttd2, Rstlss1, AlertClm0, Drwsy-1, LtSdtn-2, ModSdtn-3, DpSdtn-4, UnArsble-5 x2 08:19 Not Given (Patient Refused): Zofran (Ondansetron) 4 mg IVP once; over 2 minutes aa5 Disposition Summary: 03/10/21 05:19 Hospitalization Ordered Hospitalization Status: Observation norris Provider: Wilder Coats cha Condition: Fair norris Problem: new norris Symptoms: have improved norris Bed/Room Type: Standard norris Location: Telemetry/MedSurg (observation)(03/10/21 15:29) bd Room Assignment: 221(03/10/21 15:29) bd Diagnosis - Chest pain, unspecified norris - Dyspnea norris - Weakness norris - Angina pectoris, unspecified norris Forms: - Medication Reconciliation Form norris - SBAR form norris Signatures: Dispatcher [employer] EDMS Kizzy Mosher Martha RN RN Arnold Reyes MD MD cha Kapolka, Anthony ak2 Calderon, Audri RN aa5 Theron Turner RN em Corrections: (The following items were deleted from the chart) 05:36 05:19 Telemetry/MedSurg (observation) norris mw 05:36 05:19 norris mw 15:29 05:36 [facility] ER HOLD mw bd 15:29 05:36 ERHOLD- mw bd
[2021-03-10 05:33] LABS: Absolute Lymphocytes (CBC) 0.8 K/uL (0.7-4.9); Basophils % 0.6 % (0-1.3); Hematocrit 38.3 % (39.6-49.0); Lymphocytes % 16.4 % (15.3-44.8); MPV 8.4 fL (7.6-11.3)
[2021-03-10 05:34] LABS: Protime INR 1.05
[2021-03-10] MEDS ORDERED: HEPARIN 5000 UNIT/ML 1 ML VIAL ONE (05:35)
[2021-03-10] MEDS ORDERED: METOPROLOL TAR 50 MG TAB ONE (05:35)
[2021-03-10] MEDS ORDERED: HEPARIN/D5W 25,000 UNIT/500 ML BAG IV ONE (05:36)
[2021-03-10] MEDS ORDERED: FAMOTIDINE 20 MG/2 ML VIAL IV ONE (05:36)
[2021-03-10] MEDS ORDERED: MORPHINE 2 MG/ML SYR ONE (05:36)
[2021-03-10] MEDS ORDERED: ONDANSETRON 4 MG/2 ML VIAL ONE (05:36)
[2021-03-10] MEDS ORDERED: ASPIRIN 81 MG CHEWABLE TABLET ONE (05:52)
[2021-03-10 05:53] LABS: ALT/SGPT 26 U/L (12-78); AST/SGOT 16 U/L (15-37); Albumin 3.8 g/dL (3.4-5.0); Alkaline Phosphatase 70 U/L (45-117); BUN Blood Urea Nitrogen 16 mg/dL (7-18); Bicarbonate 29 mmol/L (21-32); Bilirubin Direct 0.2 mg/dL (0-0.2); Bilirubin Total 0.4 mg/dL (0.2-1.0); Glucose Level 108 mg/dL (74-106); Lipase 129 U/L (73-393); Magnesium 2.3 mg/dL (1.8-2.4); NT PRO-BNP 68 pg/mL (<450); Potassium 4.5 mmol/L (3.5-5.1); Protein, Total 6.9 g/dL (6.4-8.2); Sodium Level 136 mmol/L (136-145); Troponin (Emerg Dept Use Only) 0.05 ng/mL (0.0-0.045)
[2021-03-10] MEDS ORDERED: ONDANSETRON 4 MG/2 ML VIAL IV PRN (06:30)
[2021-03-10] MEDS ORDERED: CLOPIDOGREL 75 MG TABLET ONE (06:37)
[2021-03-10 06:40] VITALS: BMI 21.2
--- NOTE | 2021-03-10 07:17 | RAD REPORT ---
EXAM DESCRIPTION: CT - Angio Aorta For Dissection - 03/10/2021 7:00 am CLINICAL HISTORY: Chest pain COMPARISON: 06/12/2019 TECHNIQUE: Dynamically enhanced 3 mm thick images of the chest, abdomen, and upper pelvis were obtai alberta during administration of approximately 150mL Isovue 370 IV contrast. Sagittal and coronal reconst ruction images were generated and reviewed. Exam utilizes a protocol to evaluate entire course of the aorta. All CT scans are performed using dose optimization technique as appropriate and may include automated exposure control or mA/KV adjustment according to patient size. FINDINGS: Aorta is normal in diameter with no dissection or other acute aortic findings. Reconstruct ion images show no significant findings. Mild atherosclerotic calcifications. Pulmonary arteries are normal as well. No mass or infiltrate in the lung parenchyma. Calcified pleural plaques bilaterally. No abnormal mediastinal or hilar mass or lymphadenopathy seen. No chest wall mass or abnormal axillar y lymphadenopathy. Celiac, SMA and renal arteries show no suspicious findings. There is a mass in the right hepatic lobe measuring 6.2 centimeters. There is peripheral hyper attenuation which may represent discontinuous n odular enhancement but a delayed images not present to confirm as this would indicate a cavernous hem angioma. This is similar to prior CTs, however. This almost certainly benign peer A small flash fill hemangioma is present in the right hepatic lobe. Other low-density liver lesions noted. Moderate stoo l is present colon. No acute fractures. IMPRESSION: No aortic aneurysm or dissection. No other acute findings identified.
--- NOTE | 2021-03-10 07:43 | RAD REPORT ---
EXAM DESCRIPTION: RAD - Chest Single View - 03/10/2021 7:21 am CLINICAL HISTORY: Abdominal distention;Chest pain COMPARISON: Chest Pa And Lat (2 Views) dated 07/11/2017; CHEST PA AND LAT 2 VIEW dated 02/14/2015; PERFECTO ST SINGLE VIEW dated 10/11/2013; CHEST PA AND LAT 2 VIEW dated 11/17/2011; Angio Aorta For Dissection d ated 03/10/2021 FINDINGS: Hyperinflated lungs which may indicate emphysema but no focal consolidative airspace disea se or edema The heart size is within normal limits.No acute osseous abnormality. No significant pleur al effusions or pneumothorax. IMPRESSION: No acute cardiopulmonary disease.
[2021-03-10] MEDS: ASPIRIN EC 81 MG TAB PO SCH (09:45)
[2021-03-10 10:05] LABS: Thyroid Stimulating Hormone 2.82 uIU/mL (0.360-3.740); Troponin I 0.11 ng/mL (0.0-0.045)
[2021-03-10] MEDS ORDERED: NA CHLORIDE 0.9% 500 ML ONE (10:05)
[2021-03-10] MEDS ORDERED: HEPA 1000U/500MLS 1,000 UNIT/500 ML BAG IV ONE (10:13)
[2021-03-10] MEDS ORDERED: MIDAZOLAM HCL 2 MG/2 ML INJ ONE ×2 (10:23→10:39)
[2021-03-10] MEDS ORDERED: FENTANYL CITR 100 MCG/2 ML ONE (10:23)
[2021-03-10] MEDS ORDERED: NA CHLORIDE 0.9% 50 ML ONE (10:24)
[2021-03-10] MEDS ORDERED: ATROPINE SULF 1 MG/10 ML SYR IV ONE (10:24)
[2021-03-10] MEDS ORDERED: ASPIRIN 325 MG TAB ONE (11:00)
[2021-03-10] MEDS ORDERED: PRASUGREL (EFFIENT) 10 MG TAB ONE (11:00)
--- NOTE | 2021-03-10 14:03 | P.PN ---
Subjective Date of Service: 03/10/21 Primary Care Provider: Dr. Gonzalez Chief Complaint: Chest pain Subjective: Improving, Doing well Physical Examination - Vital Signs Temperature: 98.2 F Blood Pressure: 138/85 Pulse: 80 Respirations: 15 Pulse Ox (%): 98 Assessment & Plan Discharge Plan: Home Physician Review Additional Text: Covid: Negative Chest x-ray: COMPARISON: Chest Pa And Lat (2 Views) dated 07/11/2017; CHEST PA AND LAT 2 VIEW dated 02/14/2015; CHEST SINGLE VIEW dated 10/11/2013; CHEST PA AND LAT 2 VIEW dated 11/17/2011; Angio Aorta For Dissection dated 03/10/2021 FINDINGS: Hyperinflated lungs which may indicate emphysema but no focal consolidative airspace disease or edema The heart size is within normal limits.No acute osseous abnormality. No significant pleural effusions or pneumothorax. IMPRESSION: No acute cardiopulmonary disease. CT scan: COMPARISON: 06/12/2019 TECHNIQUE: Dynamically enhanced 3 mm thick images of the chest, abdomen, and up per pelvis were obtained during administration of approximately 150mL Isovue 370 IV contrast. Sagittal and coronal reconstruction images were generated and reviewed. Exam utilizes a protocol to evaluate entire course of the aorta. All CT scans are performed using dose optimization technique as appropriate and may include automated exposure control or mA/KV adjustment according to patient size. FINDINGS: Aorta is normal in diameter with no dissection or other acute aortic findings. Reconstruction images show no significant findings. Mild atherosclerotic calcifications. Pulmonary arteries are normal as well. No mass or infiltrate in the lung parenchyma. Calcified pleural plaques bilaterally. No abnormal mediastinal or hilar mass or lymphadenopathy seen. No chest wall mass or abnormal axillary lymphadenopathy. Celiac, SMA and renal arteries show no suspicious findings. There is a mass in the right hepatic lobe measuring 6.2 centimeters. There is peripheral hyper attenuation which may represent discontinuous nodular enhancement but a delayed images not present to confirm as this would indicate a cavernous hemangioma. This is similar to prior CTs, however. This almost certainly benign peer A small flash fill hemangioma is present in the right hepatic lobe. Other low-density liver lesions noted. Moderate stool is present colon. No acute fractures. IMPRESSION: No aortic aneurysm or dissection. No other acute findings identified. Heart catheterization: LAD occlusion with collaterals. Cardiology recommended medical treatment Physical Exam: GENERAL: The patient is a well-developed, well-nourished, in no apparent distress. Alert and oriented x3. VITAL SIGNS: Reviewed HEENT: Head is normocephalic and atraumatic. Extraocular muscles are intact. Pupils are equal, round, and reactive to light and accommodation. Nares appeared normal. Mouth is well hydrated and without lesions. Mucous membranes are moist. NECK: Supple. No carotid bruits. No lymphadenopathy or thyromegaly. LUNGS: Clear to auscultation. No crackles or wheezes are heard. HEART: Regular rate and rhythm, no appreciable gallops, rubs, murmurs or extra heart sounds ABDOMEN: Soft, nontender, and nondistended. Positive bowel sounds. No hepatosplenomegaly was noted. EXTREMITIES: Without any cyanosis, clubbing, rash, lesions or peripheral edema. NEUROLOGIC: The patient is oriented to person, place and time. Strength and sensation are grossly intact. Face is symmetric. SKIN: Normal color, turgor and temperature. No ulcerations or rashes noted. Impression: Chest pain secondary to NSTEMI status post heart catheterization showing LAD occlusion with collaterals noted Hypertension Hyperlipidemia Atrial fibrillation BPH Plan: Chest pain secondary to NSTEMI status post heart catheterization showing LAD occlusion with collaterals noted: Spoke with cardiology. Patient had heart catheterization showing LAD occlusion with collaterals noted. No intervention required at this time. Cardiology recommends medical management. Continue with aspirin, statin medication. Continue with his other medications including Rythmol and digoxin. No need for Plavix at this time. Patient will be monitored overnight. If stable can be discharged tomorrow. Hypertension: Overall stable with current medications. Will monitor closely. Will discuss with cardiology about the possibility of additional medication. Hyperlipidemia: Continue Lipitor Atrial fibrillation: Continue Rythmol and digoxin BPH: Continue Flomax Code Status: Full Code DVT prophylaxis: Lovenox Advanced Care Planning-30 minutes: Home at discharge Time Spent Managing Pts Care (In Minutes): 55
[2021-03-10] MEDS: METOPROLOL TAR 25 MG TAB PO SCH (18:00)
[2021-03-10] MEDS: PROPAFENONE HCL 150 MG TAB PO SCH (18:05)
[2021-03-10] MEDS ORDERED: ATORVASTATIN 40 MG TAB PO SCH (21:00)
[2021-03-11] MEDS: METOPROLOL TAR 25 MG TAB PO SCH (05:23)
[2021-03-11 05:50] LABS: Basophils % 1.2 % (0-1.3); Hematocrit 33.2 % (39.6-49.0); Lymphocytes % 19.5 % (15.3-44.8); MPV 8.4 fL (7.6-11.3); RBC Red Blood Cell Count 3.47 M/uL (4.33-5.43)
[2021-03-11 05:54] VITALS: O2SAT 95
[2021-03-11 05:58] LABS: ALT/SGPT 22 U/L (12-78); AST/SGOT 17 U/L (15-37); Albumin 3.2 g/dL (3.4-5.0); Alkaline Phosphatase 54 U/L (45-117); BUN Blood Urea Nitrogen 15 mg/dL (7-18); Bicarbonate 26 mmol/L (21-32); Bilirubin Total 0.5 mg/dL (0.2-1.0); Glucose Level 91 mg/dL (74-106); Potassium 3.9 mmol/L (3.5-5.1); Protein, Total 5.7 g/dL (6.4-8.2); Sodium Level 134 mmol/L (136-145)
--- NOTE | 2021-03-11 06:00 | P.DS ---
Admission Date: 03/10/21 Discharge Date: 03/11/21 Primary Care Provider: Dr. Gonzalez Disposition: ROUTINE DISCHARGE Discharge Condition: GOOD Reason for Admission: Chest pain Consultations: Cardiology-Dr. Cervantes Procedures: Covid: Negative Chest x-ray: COMPARISON: Chest Pa And Lat (2 Views) dated 07/11/2017; CHEST PA AND LAT 2 VIEW dated 02/14/2015; CHEST SINGLE VIEW dated 10/11/2013; CHEST PA AND LAT 2 VIEW dated 11/17/2011; Angio Aorta For Dissection dated 03/10/2021 FINDINGS: Hyperinflated lungs which may indicate emphysema but no focal consolidative airspace disease or edema The heart size is within normal limits.No acute osseous abnormality. No significant pleural effusions or pneumothorax. IMPRESSION: No acute cardiopulmonary disease. CT scan: COMPARISON: 06/12/2019 TECHNIQUE: Dynamically enhanced 3 mm thick images of the chest, abdomen, and upper pelvis were obtained during administration of approximately 150mL Isovue 370 IV contrast. Sagittal and coronal reconstruction images were generated and reviewed. Exam utilizes a protocol to evaluate entire course of the aorta. All CT scans are performed using dose optimization technique as appropriate and may include automated exposure control or mA/KV adjustment according to patient size. FINDINGS: Aorta is normal in diameter with no dissection or other acute aortic findings. Reconstruction images show no significant findings. Mild atherosclerotic calcifications. Pulmonary arteries are normal as well. No mass or infiltrate in the lung parenchyma. Calcified pleural plaques bilaterally. No abnormal mediastinal or hilar mass or lymphadenopathy seen. No chest wall mass or abnormal axillary lymphadenopathy. Celiac, SMA and renal arteries show no suspicious findings. There is a mass in the right hepatic lobe measuring 6.2 centimeters. There is peripheral hyper attenuation which may represent discontinuous nodular enhancement but a delayed images not present to confirm as this would indicate a cavernous hemangioma. This is similar to prior CTs, however. This almost certainly benign peer A small flash fill hemangioma is present in the right hepatic lobe. Other low-density liver lesions noted. Moderate stool is present colon. No acute fractures. IMPRESSION: No aortic aneurysm or dissection. No other acute findings timbo ntified. Heart catheterization: LAD occlusion with collaterals noted. Cardiology recommended medical treatment Medical problem list: Chest pain secondary to NSTEMI status post heart catheterization showing LAD occlusion with collaterals noted Hypertension Hyperlipidemia Atrial fibrillation BPH Brief History of Present Illness: 80-year-old male with history of atrial fibrillation, BPH presents to the emergency department for chest pain. Patient reports chest pain began early in the morning. It radiated to the shoulders bilateral. It was associated with fatigue and shortness of breath. Patient was admitted for treatment. Hospital Course: Patient presented with fatigue, shortness of breath and chest pain secondary to NSTEMI. Patient was admitted for treatment. Patient was seen and evaluated by cardiology. Cardiology recommended heart catheterization to further evaluate. Heart catheterization showed significant LAD occlusion with collaterals noted. CAD disease noted. Cardiology recommended medical therapy at this time. There is some consideration in the future that the patient may require Rotablator procedure. At discharge patient stable for discharge. At discharge the patient will continue with aspirin 81 mg daily, digoxin 125 mcg daily, Rythmol 150 mg 1 pill 3 times a day, Lipitor 40 mg daily, and Imdur 30 mg daily. Patient will follow up with cardiology this Tuesday at 8 AM. Cardiology will further discuss options including continued medical therapy and possible Rotablator procedure in the future. Cardiology mentions patient is not a candidate for CABG at this time. Additional beta-chuck therapy was considered but patient reports that he is not able to take this. This has been tried in the past. Patient will follow up with cardiology as directed. Recommend follow-up with his PCP in 1 to 2 weeks to follow-up this hospitalization. Recommend to hold off on any cardiac therapy until he is seen by cardiology. Cardiology to determine if patient may proceed with cardiac rehab in the future. Patient with hyperlipidemia. At discharge patient will continue with Lipitor 40 mg daily. Recommend to recheck fasting lipid panel in 6 to 8 weeks to monitor his progress. Patient with atrial fibrillation. Overall stable. Patient currently in normal sinus rhythm. At discharge patient will continue with aspirin 81 g daily, Rythmol 150 mg 1 pill 3 times a day and digoxin 125 mcg daily. Follow-up with cardiology as directed. Patient with BPH. At discharge patient will continue with Flomax 0.4 mg daily. Vital Signs/Physical Exam: Temp Pulse Resp BP Pulse Ox 97 F 63 16 102/56 L 95 03/11/21 04:00 03/11/21 04:00 03/11/21 04:00 03/11/21 04:00 03/11/21 04:00 General: Alert, In no apparent distress, Oriented x3, Cooperative HEENT: Atraumatic Neck: Supple Respiratory: Clear to auscultation bilaterally, Normal air movement Cardiovascular: Normal pulses, Regular rate/rhythm Gastrointestinal: Normal bowel sounds, No tenderness, No masses, No rebound, No guarding Musculoskeletal: No erythema, No tenderness, No warmth Integumentary: No tenderness/swelling Neurological: Normal speech, Normal strength at 5/5 x4 extr, Normal tone, Normal affect Laboratory Data at Discharge: WBC 4.90 K/uL (4.3-10.9) 03/11/21 05:18 Hgb 11.7 g/dL (13.6-17.9) L 03/11/21 05:18 Hct 33.2 % (39.6-49.0) L 03/11/21 05:18 Plt Count 234 K/uL (152-406) 03/11/21 05:18 PT 12.1 SECONDS (9.5-12.5) 03/10/21 05:15 INR 1.05 03/10/21 05:15 Sodium 136 mmol/L (136-145) 03/10/21 05:15 Potassium 4.5 mmol/L (3.5-5.1) 03/10/21 05:15 BUN 16 mg/dL (7-18) 03/10/21 05:15 Creatinine 0.80 mg/dL (0.55-1.3) 03/10/21 05:15 Glucose 108 mg/dL (74-106) H 03/10/21 05:15 Magnesium 2.3 mg/dL (1.8-2.4) 03/10/21 05:15 Total Bilirubin 0.4 mg/dL (0.2-1.0) 03/10/21 05:15 AST 16 U/L (15-37) 03/10/21 05:15 ALT 26 U/L (12-78) 03/10/21 05:15 Alkaline Phosphatase 70 U/L (45-117) 03/10/21 05:15 Troponin I 0.40 ng/mL (0.0-0.045) H 03/10/21 17:04 Triglycerides 23 mg/dL (<150) 03/10/21 09:20 Cholesterol 186 mg/dL (<200) 03/10/21 09:20 HDL Cholesterol 78 mg/dL (40-60) H 03/10/21 09:20 Cholesterol/HDL Ratio 2.38 03/10/21 09:20 Lipase 129 U/L (73-393) 03/10/21 05:15 Home Medications: Aspirin [Ilya Chewable Aspirin] 81 mg PO DAILY 10/11/13 Digoxin [Lanoxin*] 125 mcg PO DAILY 10/11/13 Propafenone [Rythmol*] 150 mg PO TID 10/11/13 Tamsulosin HCl [Flomax] 0.4 mg PO DAILY 03/10/21 Atorvastatin Calcium [Lipitor] 40 mg PO BEDTIME #30 tab 03/11/21 Isosorbide Mononitrate [Isosorbide Mononitrate ER] 30 mg PO DAILY #30 tab.er.24h 03/11/21 New Medications: Isosorbide Mononitrate [Isosorbide Mononitrate ER] 30 mg PO DAILY #30 tab.er.24h Atorvastatin Calcium [Lipitor] 40 mg PO BEDTIME #30 tab Physician Discharge Instructions: Patient presented with fatigue, shortness of breath and chest pain secondary to NSTEMI. Patient was admitted for treatment. Patient was seen and evaluated by cardiology. Cardiology recommended heart catheterization to further evaluate. Heart catheterization showed significant LAD occlusion with collaterals noted. CAD disease noted. Cardiology recommended medical therapy at this time. There is some consideration in the future that the patient may require Rotablator procedure. At discharge patient stable for discharge. At discharge the patient will continue with aspirin 81 mg daily, digoxin 125 mcg daily, Rythmol 150 mg 1 pill 3 times a day, Lipitor 40 mg daily, and Imdur 30 mg daily. Patient will follow up with cardiology this Tuesday at 8 AM. Cardiology will further discuss options including continued medical therapy and possible Rotablator procedure in the future. Cardiology mentions patient is not a candidate for CABG at this time. Additional beta-chuck therapy was considered but patient reports that he is not able to take this. This has been tried in the past. Patient will follow up with cardiology as directed. Recommend follow-up with his PCP in 1 to 2 weeks to follow-up this hospitalization. Recommend to hold off on any cardiac therapy until he is seen by cardiology. Cardiology to determine if patient may proceed with cardiac rehab in the future. Patient with hyperlipidemia. At discharge patient will continue with Lipitor 40 mg daily. Recommend to recheck fasting lipid panel in 6 to 8 weeks to monitor his progress. Patient with atrial fibrillation. Overall stable. Patient currently in normal sinus rhythm. At discharge patient will continue with aspirin 81 g daily, Rythmol 150 mg 1 pill 3 times a day and digoxin 125 mcg daily. Follow-up with cardiology as directed. Patient with BPH. At discharge patient will continue with Flomax 0.4 mg daily. Diet: AHA Activity: Ad sera Followup: Unknown,U [Primary Care Provider] - Time spent managing pt's care (in minutes): 55
[2021-03-11] MEDS: PROPAFENONE HCL 150 MG TAB PO SCH (08:56)
[2021-03-11] MEDS: ASPIRIN EC 81 MG TAB PO SCH (08:56)
[2021-03-11 08:57] VITALS: BP 148/75; TEMP 97.3
[2021-03-11] MEDS ORDERED: TAMSULOSIN 0.4 MG SR CAP PO SCH (09:00)
[2021-03-11] MEDS ORDERED: DIGOXIN 0.125 MG TABLET PO SCH (09:00)
--- NOTE | 2021-03-11 17:02 | EKG ---
Test Date: 2021-03-10 Test Time: 04:46:18 Machine Sander: TLT MEASUREMENT RESULTS: Intervals: Rate: 85 OH: 176 QRSD: 96 QT: 352 QTc: 418 [place]: P: 62 OH: 176 QRS: 46 T: 50 INTERPRETIVE STATEMENTS: Normal sinus rhythm Normal ECG Compared to ECG 09/08/2017 07:42:10 Myocardial infarct finding no longer present Electronically Signed On 03-11-21 16:59:06 CDT by Ton Cervantes
--- NOTE | 2021-03-14 11:35 | CON ---
Date of Consultation: 03/10/2021 Reason For Consultation: Non-STEMI. History Of Present Illness: Mr. Blas is a 80-year-old male who has a history of atrial fibrillation, benign prostatic hypertrophy. He takes digoxin, Flomax, and Rythmol for the above. He is allergic to ciprofloxacin, codeine, and sulfa. He came in with chest pain. He was found to have a positive t roponin consistent with subendocardial myocardial infarction. His EKG was normal. Chest x-ray was n ormal. He had a CT dissection that was normal. His troponin was 0.40. Rest of his blood work was f airly unremarkable. Past Medical History: As stated above. Allergies: HIS ALLERGIES ARE STATED EARLIER. Review of Systems: Negative. Social History: Negative. Family History: Noncontributory. Medications: His medications were listed earlier. Physical Examination: Vital Signs: Stable, afebrile. HEENT: Negative. Chest: Clear to auscultation and percussion. Cardiac: Revealed a regular rhythm and rate. No murmurs, gallops, or rubs. Abdomen: Benign. Extremities: Revealed no clubbing, cyanosis, or edema. Diagnostic Data: As stated earlier. Impression And Plan: 1.[id number] myocardial infarction. 2.Paroxysmal atrial fibrillation, on Rythmol. I will plan to take the patient to the heart catheterization lab today to define his coronary anatomy . The patient understands the risk and the benefits of the procedure and agreed to proceed. We will make a decision after the catheterization is done. CHRISTOPHER/JEANCARLOS Voice ID: [id number] Report ID: [id number]
--- NOTE | 2021-03-14 13:26 | OP ---
Date of Procedure: 03/10/2021 Surgeon: Ton Cervantes MD Procedures: Left heart catheterization, selective coronary arteriogram, attempted angioplasty of the left anterior descending that is failed. Indication: Non-ST elevation myocardial infarction. Mr. Blas is 80, history of paroxysmal atrial fi brillation. No previous coronary artery disease, admitted with non-STEMI. Procedure In Detail: Brought to the metallurgical laboratory assistant on the same day. Heart catheterization was performed u sing Jourdan catheter after he was being prepped and draped in routine sterile fashion. He received Versed and fentanyl for sedation. The angiography in the groin was normal and Angio-Seal was used to close the case. On the catheterization, he was found to have a completely occluded LAD. He had a 6 0% to 70% proximal circumflex, but is not dominant. The RCA was very huge. He has a posterolateral branch with a 90% stenosis in the distal RCA and that branch get collateral to the LAD all the way up to the lesion. I decided to try to intervene an XB LAD 3.5 guide was used to cannulate the left alphonse n successfully. A Korbel wire 0.014 was used to cross the lesion in the LAD successfully into the mi d distal LAD. I attempted angioplasty with multiple balloons 2.5 and 1.5 balloon. I could not cross the proximal lesion secondary to severe heavy calcification. I decided to abort the procedure. The patient tolerated the procedure well. There were no complications. Blood Loss: 5 cc. Anesthesia: Total conscious sedation was 60 minutes. [employer] Executive Director was myself and geriatric nurse assistant was Mr. Alfredo Gaviria. Final Impression And Plan: Severe coronary artery disease, completely occluded left anterior descend ing, severe distal right coronary artery disease, moderate nondominant circumflex disease. The patie nt will need to have an intervention done in [place] hopefully with possible atherectomy and maybe us ing different balloons and catheter to try to pass the lesion. The case was discussed with the famil y and with the patient. We will plan to do that as an outpatient in [place]. I will see the patient in the office in the near future. He should be on beta blockers, aspirin, Plavix, statins in additi on to his medications at home to include Rythmol. CHRISTOPHER/MODL Voice ID: [id number] Report ID: [id number]
== END 2021-03-11 09:45 | disposition home or self-care (01) ==
LOC: ER 04:38 → ERHOLD 05:10 → 2ND 15:39
PROVIDERS: ADMIT Family Medicine; ATTEND Family Medicine
DX: I21.4 Non-ST elevation (NSTEMI) myocardial infarction (principal); I25.119 Atherosclerotic heart disease of native coronary artery with unspecified angina pectoris; I25.82 Chronic total occlusion of coronary artery; I48.0 Paroxysmal atrial fibrillation; I10 Essential (primary) hypertension; R53.83 Other fatigue; N40.0 Benign prostatic hyperplasia without lower urinary tract symptoms; G35 Multiple sclerosis; E78.5 Hyperlipidemia, unspecified; Z20.822 Contact with and (suspected) exposure to COVID-19; Z79.82 Long term (current) use of aspirin; Z79.899 Other long term (current) drug therapy; Z88.6 Allergy status to analgesic agent; Z88.3 Allergy status to other anti-infective agents; Z83.3 Family history of diabetes mellitus
CPT/HCPCS: 93005; 85025 ×2; 80048; 36415 ×2; 83735 ×2; 85610; 80061; 80162; 80076; 85347 ×3; 84443; 84484 ×3; 84439; 83690; 80053; 83880; 71275; 74175; 71045; 92920; 93454; 99285; U0003; Q9967; C1893; C1760; C1725; C1877; J1644 ×3; J2250 ×2; J3010; J2270; J0583; J7040; J2405; G0378 ×3

== ENCOUNTER 2021-05-31 10:56 | Emergency (ER) | payer OTHER, BC ==
[2021-05-31] MEDS ORDERED: NA CHLORIDE 0.9% 500 ML ONE (11:56)
[2021-05-31 12:16] LABS: Absolute Lymphocytes (CBC) 0.8 K/uL (0.7-4.9); Basophils % 0.5 % (0-1.3); Hematocrit 36.6 % (39.6-49.0); Lymphocytes % 12.6 % (15.3-44.8); MPV 9.4 fL (7.6-11.3); RBC Red Blood Cell Count 3.91 M/uL (4.33-5.43)
--- NOTE | 2021-05-31 13:15 | RAD REPORT ---
EXAM DESCRIPTION: CTAbdomen Pelvis W Contrast - 05/31/2021 1:01 pm CLINICAL HISTORY: Abdominal pain. ABD PAIN COMPARISON: Abdomen Pelvis W Contrast dated 04/28/2018; CT ABD PELVIS W CONTRAST dated 10/15/2008 TECHNIQUE: Biphasic CT imaging of the abdomen and pelvis was performed with 100 ml non-ionic IV cont rast. All CT scans are performed using dose optimization technique as appropriate and may include automated exposure control or mA/KV adjustment according to patient size. FINDINGS: The lung bases are clear.Small hiatal hernia. The liver contains a 5.7 cm hepatic hemangioma. Spleen, pancreas, adrenal glands and kidneys are with in normal limits. No bowel obstruction, free air, free fluid or abscess. Prominent sigmoid diverticulosis is present wi thout diverticulitis. No significant retention of stool is seen throughout the colon. The appendix is normal. No evidence of significant lymphadenopathy. No suspicious bony findings. IMPRESSION: Prominent stool retention is seen particularly in the transverse colon. Sigmoid diverticulosis is noted without diverticulitis. Benign appearing hepatic hemangioma, stable.
[2021-05-31 13:17] LABS: Bilirubin Direct 0.1 mg/dL (0-0.2); Bilirubin Total 0.4 mg/dL (0.2-1.0); Protein, Total 7.3 g/dL (6.4-8.2)
[2021-05-31 13:18] LABS: Albumin 3.8 g/dL (3.4-5.0)
--- NOTE | 2021-05-31 14:09 | EDPHYS ---
Physician Documentation [facility] Name: Nader Blas Age: 81 yrs Sex: Male : 1940 Arrival Date: 05/31/2021 Time: 10:56 Bed 15 Private MD: ED Physician Arnold Lai HPI: 05/31 11:16 This 81 yrs old Male presents to ER via Ambulatory with complaints of pm1 Abdominal Pain. 11:16 The patient presents with abdominal pain in the left lower quadrant. Onset: The pm1 symptoms/episode began/occurred 2 day(s) ago. The symptoms do not radiate. Associated signs and symptoms: none. Pertinent negatives: nausea, vomiting, and diarrhea, chest pain, shortness of breath. The symptoms are described as achy. Modifying factors: The symptoms are alleviated by nothing, the symptoms are aggravated by movement. Severity of pain: in the emergency department the pain has improved. The patient has experienced a previous episode, many years ago, and the symptoms today are exactly the same, prior diverticulitis . The patient has not recently seen a physician. Historical: - Allergies: 11:03 Ciprofloxacin HCl; ll1 11:03 Codeine; ll1 11:03 Sulfa (Sulfonamide Antibiotics); ll1 - PMHx: 11:03 Hypertensive disorder; Hypercholesterolemia; A fib; MS; ll1 - PSHx: 11:03 heart stent; hernia repair; TURP; ll1 - Immunization history:: Client reports receiving the 2nd dose of the Covid vaccine. - Social history:: Smoking status: Patient denies any tobacco usage or history of. ROS: 11:16 Constitutional: Negative for fever, chills, and weight loss, Cardiovascular: Negative pm1 for chest pain, palpitations, and edema, Respiratory: Negative for shortness of breath, cough, wheezing, and pleuritic chest pain. 11:16 Back: Negative for injury and pain, MS/Extremity: Negative for injury and deformity, Skin: Negative for injury, rash, and discoloration, Neuro: Negative for headache, weakness, numbness, tingling, and seizure. 11:16 Abdomen/GI: Positive for abdominal pain, of the left lower quadrant, Negative for nausea, vomiting, and diarrhea, constipation. 11:16 All other systems are negative. Exam: 11:16 Constitutional: This is a well developed, well nourished patient who is awake, alert, pm1 and in no acute distress. Head/Face: Normocephalic, atraumatic. 11:16 Back: No spinal tenderness. No costovertebral tenderness. Full range of motion. Skin: Warm, dry with normal turgor. Normal color with no rashes, no lesions, and no evidence of cellulitis. MS/ Extremity: Pulses equal, no cyanosis. Neurovascular intact. Full, normal range of motion. 11:16 Cardiovascular: Exam negative for acute changes, Rate: normal, Rhythm: regular, Pulses: no pulse deficits are appreciated, Heart sounds: normal, normal S1and S2. 11:16 Respiratory: Exam negative for acute changes, respiratory distress, shortness of breath, Breath sounds: are clear throughout. 11:16 Abdomen/GI: Inspection: abdomen appears normal, Palpation: soft, mild abdominal tenderness, in the left lower quadrant. 11:16 Neuro: Exam negative for acute changes, Orientation: is normal, Mentation: is normal, Motor: is normal, moves all fours. Vital Signs: 11:01 BP 142 / 75; Pulse 94; Resp 18; Pulse Ox 100% on R/A; Weight 58.97 kg; Height 5 ft. 8 ll1 in. (172.72 cm); Pain 5/10; 11:37 BP 119 / 66; Pulse 76; Resp 18; Pulse Ox 98% on R/A; jw6 11:01 Body Mass Index 19.77 (58.97 kg, 172.72 cm) ll1 MDM: 11:10 Patient medically screened. pm1 14:06 Data reviewed: vital signs. Data interpreted: Pulse oximetry: on room air is 98 %. pm1 Interpretation: normal. Counseling: I had a detailed discussion with the patient and/or guardian regarding: the historical points, exam findings, and any diagnostic results supporting the discharge/admit diagnosis, lab results, radiology results, the need for outpatient follow up, to return to the emergency department if symptoms worsen or persist or if there are any questions or concerns that arise at home. 05/31 11:16 Order name: Basic Metabolic Panel pm1 05/31 11:16 Order name: CBC with Diff; Complete Time: 13:10 pm1 05/31 11:16 Order name: Hepatic Function pm1 05/31 11:16 Order name: Lipase pm1 05/31 11:16 Order name: Basic Metabolic Panel; Complete Time: 13:23 EDMS 05/31 11:17 Order name: Liver (Hepatic) Function; Complete Time: 13:23 EDMS 05/31 11:16 Order name: IV Saline Lock; Complete Time: 11:23 pm1 05/31 11:16 Order name: Labs collected and sent; Complete Time: 11:23 pm1 05/31 11:16 Order name: CT Abd/Pelvis - IV Contrast Only; Complete Time: 13:23 pm1 05/31 11:16 Order name: NPO; Complete Time: 11:23 pm1 05/31 11:17 Order name: Lipase; Complete Time: 13:23 EDMS Administered Medications: 11:35 Drug: NS 0.9% 500 ml Route: IV; Rate: bolus; Site: left forearm; jw6 12:12 Follow up: Response: No adverse reaction; IV Status: Completed infusion; IV Intake: jw6 500ml Disposition: 06/01 10:30 Co-signature as Attending Physician, Arnold Lai MD I agree with the assessment and norris plan of care. Disposition Summary: 05/31/21 14:08 Discharge Ordered Location: Home pm1 Problem: new pm1 Symptoms: have improved pm1 Condition: Stable pm1 Diagnosis - Abdominal pain, unspecified pm1 Followup: pm1 - With: Emergency Department - When: As needed - Reason: Worsening of condition Followup: pm1 - With: Private Physician - When: 2 - 3 days - Reason: Recheck today's complaints, Continuance of care, Re-evaluation by your physician Discharge Instructions: - Discharge Summary Sheet pm1 - Abdominal Pain, Adult pm1 - Muscle Strain pm1 Forms: - Medication Reconciliation Form pm1 - Thank You Letter pm1 - Antibiotic Education pm1 - Prescription Opioid Use pm1 Prescriptions: - levofloxacin 500 mg Oral tablet - take 1 tablet by ORAL route once daily for 7 days; 7 tablet; Refills: 0, pm1 Product Selection Permitted - Flagyl 500 mg Oral Tablet - take 1 tablet by ORAL route every 8 hours for 7 days; 21 tablet; Refills: 0, pm1 Product Selection Permitted Signatures: Dispatcher [employer] Arnold Clemente MD MD cha Marinas, Patrick, REMY ENROLLED NURSE pm[address] RN RN 1 Carol Lynn jw6
--- NOTE | 2021-05-31 14:09 | ER ---
Nurse's Notes [facility] Name: Nader Blas Age: 81 yrs Sex: Male : 1940 Arrival Date: 05/31/2021 Time: 10:56 Bed 15 Private MD: Diagnosis: Abdominal pain, unspecified Presentation: 05/31 11:01 Chief complaint: Patient states: L sided abd pain with bloating since Tuesday. No known ll1 fever. Coronavirus screen: Client denies travel out of the [place] in the last 14 days. At this time, the client does not indicate any symptoms associated with coronavirus-19. Ebola Screen: Patient denies travel to an Ebola-affected area in the 21 days before illness onset. Initial Sepsis Screen: Does the patient meet any 2 criteria? HR > 90 bpm. No. Patient's initial sepsis screen is negative. Does the patient have a suspected source of infection? Yes: Acute abdominal pain. Risk Assessment: Do you want to hurt yourself or someone else? Patient reports no desire to harm self or others. Onset of symptoms was May 29, 2021. 11:01 Method Of Arrival: Ambulatory [facility] 11:01 Acuity: ELIUD 3 ll1 Triage Assessment: 11:36 General: Appears in no apparent distress. Behavior is calm, cooperative. Pain: jw6 Complains of pain in abdomen Pain does not radiate. Pain currently is 7 out of 10 on a pain scale. EENT: No deficits noted. Neuro: No deficits noted. Cardiovascular: No deficits noted. Respiratory: No deficits noted. GI: Bowel sounds present X 4 quads. Reports Pain is 7 out of 10 on a pain scale. : No deficits noted. Derm: No deficits noted. Musculoskeletal: No deficits noted. Historical: - Allergies: 11:03 Ciprofloxacin HCl; ll1 11:03 Codeine; ll1 11:03 Sulfa (Sulfonamide Antibiotics); ll1 - PMHx: 11:03 Hypertensive disorder; Hypercholesterolemia; A fib; MS; ll1 - PSHx: 11:03 heart stent; hernia repair; TURP; ll1 - Immunization history:: Client reports receiving the 2nd dose of the Covid vaccine. - Social history:: Smoking status: Patient denies any tobacco usage or history of. Screenin:37 Abuse screen: Denies threats or abuse. Denies injuries from another. Nutritional jw6 screening: No deficits noted. Tuberculosis screening: No symptoms or risk factors identified. Fall Risk IV access (20 points). Gait- Weak (10 pts.). Assessment: 11:37 General: Appears in no apparent distress. Behavior is calm, cooperative. Pain: jw6 Complains of pain in abdomen Pain currently is 7 out of 10 on a pain scale. Neuro: No deficits noted. Cardiovascular: No deficits noted. Respiratory: No deficits noted. GI: Abd is soft Abdomen is tender to palpation in anterior aspect of right lateral abdomen and right lower quadrant. : No deficits noted. EENT: No deficits noted. Derm: No deficits noted. Musculoskeletal: No deficits noted. Vital Signs: 11:01 BP 142 / 75; Pulse 94; Resp 18; Pulse Ox 100% on R/A; Weight 58.97 kg; Height 5 ft. 8 ll1 in. (172.72 cm); Pain 5/10; 11:37 BP 119 / 66; Pulse 76; Resp 18; Pulse Ox 98% on R/A; jw6 11:01 Body Mass Index 19.77 (58.97 kg, 172.72 cm) ll1 Vitals: 11:37 Cardiac Rhythm Assessment Regular. 6 ED Course: 10:56 Patient arrived in ED. as 11:03 Triage completed. ll1 11:04 Arm band placed on Patient placed in an exam room, on a stretcher. ll1 11:09 Albino Werner NP is PHCP. pm1 11:09 Arnold Lai MD is Attending Physician. pm1 11:23 Carol Lynn is Primary Nurse. jw6 11:29 Lipase Sent. jw6 11:29 Hepatic Function Sent. jw6 11:29 Basic Metabolic Panel Sent. jw6 11:37 Patient has correct armband on for positive identification. Bed in low position. Call [facility] light in reach. Side rails up X 1. 11:37 Initial lab(s) drawn, by me, sent to lab. Inserted saline lock: 20 gauge in left [facility] forearm, using aseptic technique. 13:01 CT Abd/Pelvis - IV Contrast Only In Process Unspecified. EDMS Administered Medications: 11:35 Drug: NS 0.9% 500 ml Route: IV; Rate: bolus; Site: left forearm; [facility] 12:12 Follow up: Response: No adverse reaction; IV Status: Completed infusion; IV Intake: jw6 500ml Intake: 12:12 IV: 500ml; Total: 500ml. jw6 Outcome: 14:08 Discharge ordered by pm1 14:44 Patient left the ED. jw6 Signatures: Dispatcher [employer] Leatha Quijano Patrick, NP RESEARCH ADMINISTRATOR pm[address] RN RN ll1 Carol Lynn jw6
[2021-05-31 14:52] VITALS: BP 119/66; O2SAT 98
== END 2021-05-31 14:44 | disposition home or self-care (01) ==
LOC: ER 10:56
DX: R10.32 Left lower quadrant pain (principal); I10 Essential (primary) hypertension; I48.91 Unspecified atrial fibrillation; Z95.818 Presence of other cardiac implants and grafts; Z88.1 Allergy status to other antibiotic agents; Z88.2 Allergy status to sulfonamides; Z88.5 Allergy status to narcotic agent
CPT/HCPCS: 85025; 80048; 36415; 82565; 80076; 83690; 74177; 96360; 99284; Q9967; J7040

== ENCOUNTER 2021-06-08 08:23 | Observation (INO) | payer OTHER, BC ==
[2021-06-08 09:02] LABS: Absolute Lymphocytes (CBC) 0.5 K/uL (0.7-4.9); Basophils % 0.5 % (0-1.3); Hematocrit 34.6 % (39.6-49.0); Lymphocytes % 9.1 % (15.3-44.8); MPV 8.9 fL (7.6-11.3)
[2021-06-08 09:04] LABS: Protime INR 1.1
[2021-06-08 09:38] LABS: Albumin 3.4 g/dL (3.4-5.0); Bilirubin Direct 0.1 mg/dL (0-0.2); Bilirubin Total 0.3 mg/dL (0.2-1.0); Magnesium 2.3 mg/dL (1.8-2.4); Potassium 4.3 mmol/L (3.5-5.1); Protein, Total 6.5 g/dL (6.4-8.2); Troponin (Emerg Dept Use Only) 0.03 ng/mL (0.0-0.045)
--- NOTE | 2021-06-08 09:48 | RAD REPORT ---
EXAM DESCRIPTION: RAD - Chest Single View - 06/08/2021 9:36 am CLINICAL HISTORY: CHEST PAIN COMPARISON: March 10 TECHNIQUE: AP portable chest image was obtained 06/08/2021 9:36 am . FINDINGS: No mass, consolidation or failure finding seen. Interstitial pattern is prominent but kinza lar to comparison. No new or progressive lung parenchymal process. Heart and vasculature are normal. No measurable pleural effusion and no pneumothorax. No acute bony abnormality seen. No acute aortic findings suspected. IMPRESSION: No acute cardiopulmonary process. No significant change from comparison study.
--- NOTE | 2021-06-08 11:35 | RAD REPORT ---
EXAM DESCRIPTION: CT - Head Brain Wo Cont - 06/08/2021 11:22 am CLINICAL HISTORY: DIZZINESS COMPARISON: Head Brain Wo Cont dated 09/08/2017 TECHNIQUE: Axial 5 mm thick images of the head were obtained without IV contrast. All CT scans are performed using dose optimization technique as appropriate and may include automated exposure control or mA/KV adjustment according to patient size. FINDINGS: No intracranial hemorrhage, mass, edema or shift of mid-line structures. No acute cortical based infarction. No cortical edema or sulcal effacement. Atrophy changes are mild with ventricles i n proportion. No abnormal extra-axial fluid collections. Chronic ischemic changes appear to be minima l. Arterial tree calcifications are present. Mastoid air cells and visualized portions of the paranasal sinuses are clear. No acute bony findings. IMPRESSION: Negative non-contrast CT head examination for acute finding No significant change from 2018 examination.
--- NOTE | 2021-06-08 11:46 | EDPHYS ---
Physician Documentation [facility] Name: Nader Blas Age: 81 yrs Sex: Male : 1940 Arrival Date: 06/08/2021 Time: 08:[address] Private MD: SID Physician Arnold Lai HPI: 06/08 11:43 This 81 yrs old Male presents to ER via EMS with complaints of chest pain, jmm dizziness. 11:43 The patient or guardian reports chest pain that is located primarily in the substernal jmm area. Onset: this morning. The pain does not radiate. Associated signs and symptoms: Pertinent positives: dizziness. The chest pain is described as aching. Duration: The patient or guardian reports a single episode, that is still ongoing. Modifying factors: The symptoms are alleviated by nothing. the symptoms are aggravated by nothing. This is an 81-year-old male with history of atrial fibrillation, coronary artery disease, hyperlipidemia, hypertension, MS the presents emerged department with complaints of substernal chest pain beginning earlier this morning. Patient states over the past week patient has felt intermittent episodes of dizziness which affect his ability to walk. Patient states he has had similar episodes before prior to a previous AR.. Historical: - Allergies: 08:35 Ciprofloxacin HCl; ap3 08:35 Codeine; ap3 08:35 Sulfa (Sulfonamide Antibiotics); ap3 - PMHx: 08:35 a fib; Hypercholesterolemia; Hypertensive disorder; MS; Myocardial infarction; ap3 - PSHx: 08:35 heart stent; hernia repair; TURP; ap3 - Immunization history:: Adult Immunizations up to date, Client reports receiving the 2nd dose of the Covid vaccine, Date received: October 2020 Flu vaccine is up to date. - Social history:: Smoking status: Patient denies any tobacco usage or history of. ROS: 11:43 Constitutional: Negative for fever, chills, and weight loss. jmm 11:43 Cardiovascular: Positive for chest pain. 11:43 Neuro: Positive for dizziness. 11:43 All other systems are negative. Exam: 11:43 Constitutional: This is a well developed, well nourished patient who is awake, alert, jmm and in no acute distress. Head/Face: atraumatic. Eyes: EOMI, no conjunctival erythema appreciated ENT: Moist Mucus Membranes Neck: Trachea midline, Supple Chest/axilla: Normal chest wall appearance and motion. Cardiovascular: Regular rate and rhythm. No edema appreciated Respiratory: Normal respirations, no respiratory distress appreciated Abdomen/GI: Non distended, soft Back: Normal ROM Skin: General appearance color normal MS/ Extremity: Moves all extremities, no obvious deformities appreciated, no edema noted to the lower extremities 11:43 Neuro: Orientation: is normal, Mentation: is normal, Memory: is normal, Cerebellar function: normal finger to nose testing, heel to oshea testing is normal. 11:43 Psych: Behavior/mood is pleasant, cooperative, anxious. Vital Signs: 08:25 BP 113 / 65 LA (auto/reg); Pulse 95; Resp 16; Temp 98.7(TE); Pulse Ox 100% on R/A; ap3 Weight 58.97 kg; Height 5 ft. 8 in. (172.72 cm); Pain 1/10; 09:43 BP 102 / 67; Pulse 83; Resp 17; Pulse Ox 98% on R/A; ap3 10:48 BP 111 / 67; Pulse 77; Resp 18; Pulse Ox 98% ; jh5 11:27 BP 118 / 68; Pulse 79; Pulse Ox 100% on R/A; ap3 12:26 BP 102 / 67; Pulse 83; Resp 18; Pulse Ox 97% ; jh5 15:44 BP 145 / 83; Pulse 81; Resp 18; Pulse Ox 97% ; ap3 08:25 Body Mass Index 19.77 (58.97 kg, 172.72 cm) ap3 MDM: 08:31 Patient medically screened. norris 11:45 The patient was not given aspirin in the Emergency Department. Patient reports taking [facility] aspirin within the past 24 hours. Data reviewed: vital signs, nurses notes. Counseling: I had a detailed discussion with the patient and/or guardian regarding: the historical points, exam findings, and any diagnostic results supporting the discharge/admit diagnosis, lab results, radiology results, the need for further work-up and treatment in the hospital. ED course: I discussed the patient with Dr. Redding whom accepted the patient. 06/08 08:37 Order name: Basic Metabolic Panel [facility] 06/08 08:37 Order name: CBC with Diff [facility] 06/08 08:37 Order name: LFT's [facility] 06/08 08:37 Order name: Magnesium [facility] 06/08 08:37 Order name: NT PRO-BNP [facility] 06/08 08:37 Order name: PT-INR; Complete Time: 09:13 [facility] 06/08 08:37 Order name: Troponin (emerg Dept Use Only); Complete Time: 09:51 [facility] 06/08 08:37 Order name: Basic Metabolic Panel; Complete Time: 09:51 [facility] 06/08 08:37 Order name: CBC with Automated Diff; Complete Time: 09:13 [facility] 06/08 08:37 Order name: Liver (Hepatic) Function; Complete Time: 09:51 [facility] 06/08 08:37 Order name: Magnesium; Complete Time: 09:51 [facility] 06/08 08:37 Order name: NT PRO-BNP; Complete Time: 09:51 [facility] 06/08 11:48 Order name: COVID-19 SARS RT PCR (Document "Date of Onset" if Symptomatic): Pt being ap3 admitted for OBS. No COVID symptoms; Complete Time: 14:38 06/08 08:37 Order name: XRAY Chest (1 view); Complete Time: 09:51 [facility] 06/08 08:37 Order name: EKG; Complete Time: 08:37 [facility] 06/08 08:37 Order name: Cardiac monitoring; Complete Time: 08:37 [facility] 06/08 08:37 Order name: EKG - Nurse/Tech; Complete Time: 08:37 [facility] 06/08 08:37 Order name: IV Saline Lock; Complete Time: 08:37 [facility] 06/08 08:37 Order name: Labs collected and sent; Complete Time: 08:51 [facility] 06/08 08:37 Order name: O2 Per Protocol; Complete Time: 08:37 [facility] 06/08 09:42 Order name: CT Head Brain wo Cont; Complete Time: 11:41 [facility] 06/08 12:54 Order name: CONS Physician Consult [facility] 06/08 12:59 Order name: Stroke Protocol [facility] 06/08 17:23 Order name: MRI; Complete Time: 17:25 [facility] 06/08 17:24 Order name: MRI; Complete Time: 17:25 [facility] 06/08 17:26 Order name: MRI; Complete Time: 17:31 [facility] 06/08 19:12 Order name: Troponin I; Complete Time: 09:22 [facility] 06/08 19:12 Order name: T4 Free; Complete Time: 09:22 [facility]MS 06/08 19:12 Order name: Thyroid Stimulating Hormone; Complete Time: :22 [facility]IL 06/08 08:37 Order name: O2 Sat Monitoring; Complete Time: 08:37 [facility] Administered Medications: No medications were administered Disposition: 06/09 11:38 Co-signature as Attending Physician, Arnold Lai MD I agree with the assessment and norris plan of care. Disposition Summary: 06/08/21 11:46 Hospitalization Ordered Hospitalization Status: Observation [facility] Provider: Lg Redding Condition: Stable jm Problem: an acute exacerbation jmm Symptoms: are unchanged jm Bed/Room Type: Standard [facility] Location: Telemetry/MedSurg (observation)(06/08/21 17:33) bd Room Assignment: 224(06/08/21 17:33) bd Diagnosis - Chest pain, unspecified [facility] Forms: - Medication Reconciliation Form jmm - SBAR form jmm Signatures: Dispatcher [employer] EDMS Kizzy Mosher Corey, MD MD cha Mickail, Joel, PA PA [facility] Georgette Hernandez, RN RN Scarlet Pitts RN RN ap3 Corrections: (The following items were deleted from the chart) 06/08 17:05 11:46 Telemetry/MedSurg (observation) [facility] iw 17:05 11:46 [facility] iw 17:33 17:05 [facility] ER HOLD iw bd 17:33 17:05 ERHOLD- iw bd
--- NOTE | 2021-06-08 11:46 | ER ---
Nurse's Notes [facility] Name: Nader Blas Age: 81 yrs Sex: Male : 1940 Arrival Date: 06/08/2021 Time: 08:[address] Private MD: Diagnosis: Chest pain, unspecified Presentation: 06/08 08:25 Chief complaint: EMS states: Patient called to them for chest pain. Patient states he ap3 had an IL in March 2021 and stents were placed at that time. It is reported dizziness accompanies the pain, which began a couple of weeks ago. Patient reports this does not feel similar to the discomfort he felt with his previous IL. Coronavirus screen: At this time, the client does not indicate any symptoms associated with coronavirus-19. Ebola Screen: No symptoms or risks identified at this time. Initial Sepsis Screen: Does the patient meet any 2 criteria? No. Patient's initial sepsis screen is negative. Does the patient have a suspected source of infection? No. Patient's initial sepsis screen is negative. Risk Assessment: Do you want to hurt yourself or someone else? Patient reports no desire to harm self or others. Onset of symptoms was May 27, 2021. Care prior to arrival: IV initiated. 20 GA, in the right antecubital area. 08:25 Method Of Arrival: EMS: [facility] ap3 08:25 Acuity: ELIUD 3 ap3 Triage Assessment: 08:33 General: Appears in no apparent distress. Behavior is calm, cooperative. Pain: ap3 Complains of pain in mid-sternal area Pain does not radiate. Pain currently is 1 out of 10 on a pain scale. Quality of pain is described as dull, Pain began gradually, Is intermittent, Also complains of dizziness. Neuro: Level of Consciousness is awake, alert, obeys commands, Oriented to person, place, time, situation, Appropriate for age Moves all extremities. Speech is normal. Cardiovascular: Reports chest pain, Patient's skin is warm and dry. Rhythm is regular. Respiratory: Airway is patent Respiratory effort is even, unlabored, Respiratory pattern is regular, symmetrical. Historical: - Allergies: 08:35 Ciprofloxacin HCl; ap3 08:35 Codeine; ap3 08:35 Sulfa (Sulfonamide Antibiotics); ap3 - PMHx: 08:35 a fib; Hypercholesterolemia; Hypertensive disorder; MS; Myocardial infarction; ap3 - PSHx: 08:35 heart stent; hernia repair; TURP; ap3 - Immunization history:: Adult Immunizations up to date, Client reports receiving the 2nd dose of the Covid vaccine, Date received: October 2020 Flu vaccine is up to date. - Social history:: Smoking status: Patient denies any tobacco usage or history of. Screenin:33 Abuse screen: Denies threats or abuse. Nutritional screening: No deficits noted. ap3 Tuberculosis screening: No symptoms or risk factors identified. Fall Risk No fall in past 12 months (0 pts). Secondary diagnosis (15 points) MS. IV access (20 points). Total Eric Fall Scale indicates Low Risk Score (25-44 pts). Fall prevention measures have been instituted. Side Rails Up X 2 Placed close to Nursing Station Frequent Obs/Assesments occuring As available Patient and Family Educated on Fall Prevention Program and strategies. Assessment: 11:27 Reassessment: Patient and/or family updated on plan of care and expected duration. Pain ap3 level reassessed. Patient is alert, oriented x 3, equal unlabored respirations, skin warm/dry/pink. Patient states feeling better. Patient states symptoms have improved. 15:44 Reassessment: Patient and/or family updated on plan of care and expected duration. Pain ap3 level reassessed. Patient is alert, oriented x 3, equal unlabored respirations, skin warm/dry/pink. 16:49 Reassessment: Patient is still at MRI, daughter has arrived to bedside. ap3 Vital Signs: 08:25 BP 113 / 65 LA (auto/reg); Pulse 95; Resp 16; Temp 98.7(TE); Pulse Ox 100% on R/A; ap3 Weight 58.97 kg; Height 5 ft. 8 in. (172.72 cm); Pain 1/; 09:43 BP 102 / 67; Pulse 83; Resp 17; Pulse Ox 98% on R/A; ap3 10:48 BP 111 / 67; Pulse 77; Resp 18; Pulse Ox 98% ; jh5 11:27 BP 118 / 68; Pulse 79; Pulse Ox 100% on R/A; ap3 12:26 BP 102 / 67; Pulse 83; Resp 18; Pulse Ox 97% ; jh5 15:44 BP 145 / 83; Pulse 81; Resp 18; Pulse Ox 97% ; ap3 08:25 Body Mass Index 19.77 (58.97 kg, 172.72 cm) ap3 ED Course: 08:25 Patient arrived in ED. ap3 08:30 Kevyn Boyce PA is PHCP. jmm 08:30 Arnold Lai MD is Attending Physician. jmm 08:32 Triage completed. ap3 08:35 Arm band placed on right wrist. EKG completed in triage. Results shown to MD. ap3 08:36 Patient has correct armband on for positive identification. Placed in gown. Bed in low ap3 position. Call light in reach. Side rails up X2. monitor worker on. Pulse ox on. NIBP on. Door closed. Noise minimized. 08:37 Scarlet Burnett, RN is Primary Nurse. ap3 09:36 XRAY Chest (1 view) In Process Unspecified. EDMS 11:22 CT Head Brain wo Cont In Process Unspecified. EDMS 11:45 Lg Redding MD is Hospitalizing Provider. [facility] 12:02 COVID swab sent to lab. ap3 Administered Medications: No medications were administered Outcome: 11:46 Decision to Hospitalize by Provider. jmm 19:27 Patient left the ED. iw Signatures: Dispatcher [employer] EDMS Kevyn Boyce PA PA jmm Williams, Irene, RN RN iw Scarlet Burnett, CHEVY RN ap3 Carol Lopez, RN RN jh5
--- NOTE | 2021-06-08 12:59 | P.HP ---
Certification for Inpatient Patient admitted to: Observation With expected LOS: <2 Midnights Practitioner: I am a practitioner with admitting privileges, knowledge of patient current condition, hospital course, and medical plan of care. Services: Services provided to patient in accordance with Admission requirements found in Title 42 Section 412.3 of the Code of Federal Regulations Patient History Date of Service: 06/08/21 Reason for admission: Chest pain, dizziness History of Present Illness: 81-year-old male, PMH: CAD s/p stent in the last ~1 month, atrial fibrillation, hypertension, hypercholesterolemia, multiple sclerosis. Patient presents to the ED due to worsening chest pressure since this morning at 2 AM. Patient had coronary stents done last month, states since then he has been having some very mild, intermittent chest pressure at the substernal area. He states yesterday he was awake and feeling like he had a significant amount of brain fog, dizziness, felt like he could not comprehend things. Since he was not feeling well he was awake, states well sitting he developed this substernal chest pressure. This was more severe than prior episodes, with the exception of when he first had his heart attack leading to his stents 1 month ago. He believes the pain resolved after" quite some time", but has come back at least 2-3 more short episodes since then. He currently states he has some substernal chest pressure. He denies any recent fever, chills, nausea/vomiting, constipation/diarrhea, palpitations, rashes/lesions. He also has had the most severe episode of dizziness/"brain fog". He denies any room spinning, no nausea associated with this. He is unsure if anything in particular aggravates or alleviates this. He has not been able to pinpoint this to occur after a certain trigger. He states that he is episodes occur most days, if not every day over the last 3 weeks. He thinks this happened very mildly even just before he had the coronary stents done. He states since the stents were placed, he has been taking all of his medications as prescribed, has not missed a dose aspirin, Plavix, isosorbide which were new. His blood pressure in the ED was noted to be 221086/60, normal heart rate without hypoxia. He he has had left lower extremity weakness, like knee giving out on him earlier in the month and is seeing physical therapy for this. He reports history of MS, last flare was 5-6 years ago, had left sided paresthesias Allergies ciprofloxacin [From Cipro] Allergy (Verified 10/11/13 21:46) Shortness of breath ciprofloxacin HCl [From Cipro] Allergy (Verified 10/11/13 21:46) Shortness of breath codeine Allergy (Verified 10/11/13 21:46) Shortness of breath Sulfa (Sulfonamide Antibiotics) Allergy (Verified 10/11/13 21:46) Shortness of breath Home Medications: Aspirin [Ilya Chewable Aspirin] 81 mg PO DAILY 10/11/13 Digoxin [Lanoxin*] 125 mcg PO DAILY 10/11/13 Propafenone [Rythmol*] 150 mg PO TID 10/11/13 Tamsulosin HCl [Flomax] 0.4 mg PO DAILY 03/10/21 Atorvastatin Calcium [Lipitor] 40 mg PO BEDTIME #30 tab 03/11/21 Isosorbide Mononitrate [Isosorbide Mononitrate ER] 30 mg PO DAILY #30 tab.er.24h 03/11/21 - Past Medical/Surgical History Diabetic: No -: AFIB on aspirin -: MS -: CAD s/p stent -: HTN -: TURP -: HERNIA REPAIR Psychosocial/ Personal History: Lives at home, alone - Family History Father -: Diabetes - Social History Smoking Status: Never smoker Alcohol use: No CD- Drugs: No Caffeine use: No Place of Residence: Home Review of Systems 10-point ROS is otherwise unremarkable Physical Examination - Physical Exam General: Alert, In no apparent distress, Oriented x3 HEENT: Mucous membr. moist/pink, Sclerae nonicteric Neck: Supple Respiratory: Clear to auscultation bilaterally, Diminished (at bases bilaterally) Cardiovascular: No edema, Irregular heart rate/rhythm Gastrointestinal: Soft and benign, Non-distended, No tenderness Musculoskeletal: No erythema, No tenderness Integumentary: No rashes, No significant lesion Neurological: Normal speech, Normal strength at 5/5 x4 extr, Normal affect - Studies Laboratory Data (last 24 hrs) 06/08/21 08:52: PT 12.7 H, INR 1.10 06/08/21 08:52: WBC 5.60, Hgb 11.8 L, Hct 34.6 L, Plt Count 213 06/08/21 08:52: Sodium 138, Potassium 4.3, BUN 14, Creatinine 0.91, Glucose 141 H, Magnesium 2.3, Total Bilirubin 0.3, AST 28, ALT 35, Alkaline Phosphatase 76 Assessment and Plan - Advance Directives Does patient have a Living Will: No Does patient have a Durable POA for Healthcare: No Physician Review Additional Text: Problem list Chest pressure/pain Dizziness, difficulty concentrating Hypertension Atrial fibrillation, chronic Hypercholesterolemia Multiple sclerosis Patient with recent cardiac procedure, and has been compliant with his medicat ions. Less likely to be due to stents clotting off, no EKG changes. Initial troponin 0.03, will trend Cardiology consulted, recommends pharmacologic stress test tomorrow Given patient's weakness, and symptoms, less likely to be a MS flare, however will evaluate with an MRI No history of ear infection, no worsening of his chronic tinnitus, no vertigo symptoms. Unclear the etiology leading the patient's dizziness/brain fog, especially with intermittent nature Discussed possibility of hypotension, blood pressure in the ED [id number] over 60s, he states he typically runs [id number] over 60s. He was started on isosorbide after stent placement. He states he does not typically check his blood pressure at home, but did check during one of the episodes and he states it was normal. We will check orthostatic vitals Check thyroid studies Obtain/confirm home medications and restart as appropriate, continue aspirin/Plavix Code: DNR Dispo: Anticipate discharge home in 1-2 days Time Spent Managing Pts Care (In Minutes): 60
--- NOTE | 2021-06-08 17:22 | RAD REPORT ---
EXAM DESCRIPTION: MRI - Brain W/Wo Cont - 06/08/2021 5:06 pm CLINICAL HISTORY: lightheaded/ brain fog, L leg weakness COMPARISON: MRA Head Wo Cont dated 06/08/2021; Head Brain Wo Cont dated 06/08/2021 TECHNIQUE: Sagittal T1-weighted images were obtained along with PD/heavily T2-weighted and T2-FLAIR images. Axial DWI and ADC mapping sequences were also obtained along with coronal heavily T2-weighted images were obtained. MRI was obtained with contrast as well. FINDINGS: No intracranial hemorrhage, mass or acute infarction. There is no edema or shift of midlin e structures. No extra-axial fluid collections. Signal voids are seen as a normal finding in the farnaz r intracranial vessels. Mild chronic small vessel ischemic changes. Mastoid air cells and paranasal sinuses are clear. IMPRESSION: No acute intracranial abnormality. No abnormal enhancement. Mild chronic small vessel is chemic changes.
--- NOTE | 2021-06-08 17:24 | RAD REPORT ---
EXAM DESCRIPTION: MRI - MRA Neck W/Wo Cont - 06/08/2021 5:07 pm CLINICAL HISTORY: lightheaded/ brain fog, L leg weakness COMPARISON: No comparisons FINDINGS: Contrast enhance 2D [id number] MR angiography of the neck vessels was performed. The carotid systems and bilateral vertebral arteries are both IMPRESSION: No stenosis or dissection identified within the neck.
--- NOTE | 2021-06-08 17:25 | RAD REPORT ---
EXAM DESCRIPTION: MRI - MRA Head Wo Cont - 06/08/2021 5:04 pm CLINICAL HISTORY: lightheaded/ brain fog, L leg weakness CVA COMPARISON: No comparisons FINDINGS: 3D noncontrast [id number] MR angiography of the [place] was performed. No aneurysm, flow-limiting stenosis or vascular malformation is seen. Forward flow seen in codominant vertebral arteries. The visualized dural venous sinuses appear patent. IMPRESSION: No significant flow abnormality of the [place] is identified.
[2021-06-08 17:36] VITALS: BMI 19.8
[2021-06-08 19:12] LABS: Thyroid Stimulating Hormone 3.7 uIU/mL (0.360-3.740); Troponin I 0.03 ng/mL (0.0-0.045)
[2021-06-08 21:31] LABS: Urine Appearance CLOUDY (Clear); Urine Bilirubin NEGATIVE (Negative); Urine Blood NEGATIVE (Negative); Urine Color YELLOW (Yellow); Urine Glucose NEGATIVE (Negative); Urine Protein NEGATIVE (Negative); Urine Urobilinogen 0.2 mg/dL (0.2-1.0)
[2021-06-08 21:33] LABS: Urine Microscopic Reflex ORDER UMIC
[2021-06-08 21:45] LABS: Urine Amorphous Sediment 2+ /HPF (NONE SEEN); Urine Bacteria <20 /HPF (NONE SEEN); Urine Mucus 1+ /HPF (NONE SEEN); Urine RBC <5 /HPF (NONE SEEN)
[2021-06-08] MEDS: clonazePAM 1 MG TAB PO PRN (21:48)
[2021-06-09 06:19] LABS: Basophils % 0.7 % (0-1.3); Hematocrit 39.2 % (39.6-49.0); Lymphocytes % 17.4 % (15.3-44.8); MPV 9.4 fL (7.6-11.3); RBC Red Blood Cell Count 4.17 M/uL (4.33-5.43)
[2021-06-09 06:41] LABS: Albumin 3.8 g/dL (3.4-5.0); Bilirubin Total 0.5 mg/dL (0.2-1.0); Magnesium 2.3 mg/dL (1.8-2.4); Protein, Total 7.2 g/dL (6.4-8.2); Troponin I 0.03 ng/mL (0.0-0.045)
[2021-06-09] MEDS ORDERED: REGADENOSON 0.4 MG/5 ML SYR IV ONE (07:55)
[2021-06-09 08:28] VITALS: O2SAT 98
[2021-06-09] MEDS ORDERED: CLOPIDOGREL 75 MG TABLET PO SCH ×2 (09:00)
[2021-06-09] MEDS ORDERED: ISOSORBIDE MONO 10 MG TAB PO SCH (09:00)
[2021-06-09] MEDS ORDERED: ASPIRIN 81 MG CHEWABLE TABLET PO SCH (09:00)
--- NOTE | 2021-06-09 11:51 | EKG ---
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
[2021-06-09] MEDS: clonazePAM 1 MG TAB PO PRN (12:13)
--- NOTE | 2021-06-09 12:32 | TREADPHA ---
DX: CHEST PAIN Date of Study: 06/09/2021 Ht: 5' 8 " Wt: 130 lb 0.106 oz Consulting Physician: CARA MEDICATIONS: LIPITOR, PLAVIX, KLONOPIN, RYTHMOL HISTORY: ATRIAL FIBRTILLATION, MYOCARDIAL INFARCTION, STENTS TIMES TWO, HIGH CHOLESTEROL PHYSICIAL EXAMINATION: RESTING B.P.: 162/85 RESTING H.R.: 94 RESTING EKG: NORMAL PROTOCOL: PHARMACOLOGIC EXERCISE TIME: 3:30 B.P. AT [place] STRESS: 147/69 IMPRESSION: LEXISCAN STRESS TEST PERFORMED. CARDIOLITE INJECTED PER PROTOCOL. SEE NUCLEAR MEDICINE REPORT. NO SUPRAVENTRICULAR TACHYCARDIA. NO VENTRICULAR TACHYCARDIA. NO ARRHYTHMIAS. RESPIRATORY EVEN NON-LABORED. PATIENT TOLERATED WELL.
--- NOTE | 2021-06-09 12:33 | RAD REPORT ---
EXAM DESCRIPTION: NM - Rest Stress Cardiac Imaging - 06/09/2021 9:49 am CLINICAL HISTORY: CP Chest pain. COMPARISON: No comparisons TECHNIQUE: The patient was administered approximately 10mCi of Tc 99m Sestamibi prior to resting SPE CT imaging of the heart. The patient was then administered approximately 30 mCi of Tc 99m Sestamibi f ollowing exercise or pharmacologic stress. Multiplanar SPECT images were reviewed. FINDINGS: No stress induced ischemic defect is seen to suggest stress induced ischemia. No fixed def ect is seen to suggest hibernating myocardium or scarred myocardium. The end diastolic volume is 76 ml, the end systolic volume is 27 ml, and the ejection fraction is 65 %. IMPRESSION: No stress induced ischemia.
--- NOTE | 2021-06-09 13:54 | P.DS ---
Admission Date: 06/08/21 Discharge Date: 06/09/21 Disposition: ROUTINE DISCHARGE Discharge Condition: FAIR Reason for Admission: Chest pain, dizziness Brief History of Present Illness: 81-year-old male, PMH: CAD s/p stent in the last ~1 month, atrial fibrillation, hypertension, hypercholesterolemia, multiple sclerosis. Patient presented to the ED due to worsening chest pressure. Patient had coronary stents done last month, and states since then he has been having some very mild, intermittent chest pressure at the substernal area. He also reported 'brain fog', dizziness, and felt like he could not comprehend things. He denied any recent fever, chills, nausea/vomiting, constipation/diarrhea, palpitations, rashes/lesions. He reports compliance with his medications. He was recently started on isosorbide. His blood pressure in the ED was noted to be 954576/60, normal heart rate, no hypoxia. He reported occasional left lower extremity weakness, like knee giving out on him earlier in the month and is seeing physical therapy for this. He reports history of MS, last flare was 5-6 years ago. Patient hospitalized for further management. Hospital Course: Problem list Chest pressure/pain Dizziness. Hypertension Atrial fibrillation, chronic Hypercholesterolemia Multiple sclerosis Coronary artery disease. Patient placed under observation on the medical floor. MRI of the brain was done which was negative for acute stroke. MRA of head and neck also unremarkable. Patient seen by cardiology, nuclear stress test was done which did not show any stress-induced ischemia. Patient is on isosorbide mononitrate for chronic angina. He is currently asymptomatic and deemed stable for discharge. Vital Signs/Physical Exam: Temp Pulse Resp BP Pulse Ox 99.3 F 81 18 172/80 H 99 06/09/21 12:00 06/09/21 12:00 06/09/21 12:00 06/09/21 12:00 06/09/21 12:00 General: Alert, In no apparent distress, Oriented x3 HEENT: Mucous membr. moist/pink Neck: JVD not distended Respiratory: Clear to auscultation bilaterally, Normal air movement Cardiovascular: No edema, Regular rate/rhythm, Normal S1 S2 Gastrointestinal: Normal bowel sounds, Soft and benign, Non-distended, No tenderness Musculoskeletal: No swelling Integumentary: No rashes Neurological: Normal strength at 5/5 x4 extr, Cranial nerves 3-12 intact Laboratory Data at Discharge: WBC 6.00 K/uL (4.3-10.9) 06/09/21 05:36 Hgb 13.2 g/dL (13.6-17.9) L 06/09/21 05:36 Hct 39.2 % (39.6-49.0) L 06/09/21 05:36 Plt Count 229 K/uL (152-406) 06/09/21 05:36 PT 12.7 SECONDS (9.5-12.5) H 06/08/21 08:52 INR 1.10 06/08/21 08:52 Sodium 137 mmol/L (136-145) 06/09/21 05:36 Potassium 4.0 mmol/L (3.5-5.1) 06/09/21 05:36 BUN 10 mg/dL (7-18) 06/09/21 05:36 Creatinine 0.84 mg/dL (0.55-1.3) 06/09/21 05:36 Glucose 94 mg/dL (74-106) 06/09/21 05:36 Magnesium 2.3 mg/dL (1.8-2.4) 06/09/21 05:36 Total Bilirubin 0.5 mg/dL (0.2-1.0) 06/09/21 05:36 AST 27 U/L (15-37) 06/09/21 05:36 ALT 43 U/L (12-78) 06/09/21 05:36 Alkaline Phosphatase 86 U/L (45-117) 06/09/21 05:36 Troponin I 0.03 ng/mL (0.0-0.045) 06/09/21 05:36 Home Medications: Aspirin [Ilya Chewable Aspirin] 81 mg PO DAILY 10/11/13 Tamsulosin HCl [Flomax] 0.4 mg PO DAILY AFTER SUPPER 03/10/21 Atorvastatin Calcium [Lipitor] 40 mg PO BEDTIME #30 tab 03/11/21 Clopidogrel Bisulfate [Plavix] 75 mg PO DAILY 06/08/21 Isosorbide Mononitrate [Ismo] 20 mg PO DAILY 06/08/21 Propafenone [Rythmol SR] 225 mg PO BID 06/08/21 clonazePAM [Clonazepam] 1 mg PO BEDTIME PRN PRN 06/08/21 Diet: AHA Activity: Ad sera Followup: Ton Cervantes MD [ACTIVE - CAN ADMIT] - 1-2 Weeks Unknown,U [Primary Care Provider] - 1-2 Weeks
[2021-06-09 16:56] VITALS: BP 167/84; TEMP 98.6
[2021-06-09] MEDS ORDERED: TAMSULOSIN 0.4 MG SR CAP PO SCH (17:30)
[2021-06-09] MEDS ORDERED: ATORVASTATIN 40 MG TAB PO SCH (21:00)
--- NOTE | 2021-06-15 11:06 | CON ---
Date of Consultation: 06/08/2021 Reason For Consultation: Chest pain. History Of Present Illness: Mr. Blas is 81 years old, very well known to me. Has had multiple episo jarrod of cardiac catheterization and stenting, coronary artery disease. He has hypertension, dyslipide christine. He has multiple sclerosis. Has had hernia repair and TURP. He has allergies to sulfa, codeine , and Cipro. Came in with substernal chest pain that he thinks himself is anxiety. Has had dizzines s. Symptoms were not aggravated by activities or food or time of the day or body position. He has h ad a history of atrial fibrillation, but denied any atrial fibrillation episode. Denied any syncope, fever or chills. Past Medical History: As stated above. Allergies: STATED ABOVE. Review of Systems: Negative. Social History: Negative. Family History: Negative. Medications: At home included aspirin, Lipitor, Plavix, Imdur, Rythmol, Flomax, and clonazepam. Physical Examination: Vital Signs: He was not in sinus rhythm. Vital signs stable, afebrile. HEENT: Negative. Neck: Supple with no bruit. Chest: Clear. Cardiac: Revealed a regular rhythm and rate. No murmurs, gallops, or rubs. Abdomen: Benign. Extremities: Revealed no clubbing, cyanosis, or edema. Diagnostic Data: All within normal limit. He was COVID negative. EKG was nonspecific. Chest x-ray was negative. Impression And Plan: The patient with recurrent chest pain, history of coronary artery disease, atri al fibrillation, dyslipidemia. I feel more comfortable doing another stress test on him here in the hospital before he goes home. If that is negative, he can go home and I will follow up with him as a n outpatient. He has already had neck MRA and brain MRI and MRA, all of that have been negative. We will see how he does after the stress test. CHRISTOPHER/JEANCARLOS Voice ID: [id number] Report ID: [id number]
--- OUTSIDE RECORDS SUMMARY | 2021-06-20 04:33 | XMS REPORT | Continuity of Care Document ---
:1940 Author Organization [facility] t Address [address] [place] [address] [place] [id number] Care Team Providers Name Role Phone No Primary Care Physician Unavailable Mihir Attending Clinician Unavailable CHUCK Attending Clinician Unavailable Erwin PRIEST Attending Clinician Unavailable César Hill Attending Clinician CHUCK Attending Clinician Unavailable GRAMM, A Attending Clinician Unavailable Pcp, Does Not Have A Attending Clinician Danyel Burrell MD Attending Clinician Emma SOTO S Attending Clinician Serene Hernandez DO Attending Clinician Doctor Unassigned, Name Attending Clinician Unavailable RADIOLOGY Attending Clinician Unavailable ERWIN CALLEJAS Attending Clinician Unavailable Physician, Primary or Family Admitting Clinician Unavailumer gonzales Raslan Admitting Clinician Unavailable WALL Admitting Clinician Unavailable Payers Payer Name Policy Type Policy Number Effective Date Expiration Date S yogesh MEDICARE PART A \\T\\ [id number] 2006 B 00:00:00 BC[employer] TRADITIONAL [id number] 2006 00:00:00 MEDICARE PART A AND [id number] 2006 B 00:00:00 Problems Condition Condition Condition Status Onset Resolution Last Treating Co mments Source Name Details Category Date Date Treatment Clinician Date Primary Primary Disease Active [facility] localized localized 5-27 [facility] 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 Primary Primary Disease Active [facility] localized localized 5-27 Heal th osteoarthr osteoarthr 00:00: 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 Primary Disease Active [facility] localized localized 5-27 Heal th osteoarthr osteoarthr 00:00: itis of itis of 00 right knee right knee History of History of Problem Resolve Univers [...] left, left, ans initial initial encounter encounter No known No known Disease Unive rs active active ity of problems problems [place] [facility] Allergies, Adverse Reactions, Alerts Allergy Allergy Status Severity Reaction(s) Onset Inactive Treating Comm ents Source Name Type Date Date Clinician Sulfa DA Active U 2020-0 [facility] (Sulfona 8-10 Clear mide 00:00: Alexander Antibiot 00 [facility]) [facility] codeine DA Active U 2020-0 [facility] 8-10 Clear 00:00: Alexander [facility] ciproflo DA Active U 2020-0 [facility] xacin 8-10 Clear 00:00: Alexander 00 [facility] Sulfa DA Active U MALIKA 2020-0 [facility] (Sulfona 8-10 Clear mide 00:00: Alexander Antibiot 00 [facility]) [facility] codeine DA Active U R 2020-0 [facility] 8-10 Clear 00:00: Alexander 00 [facility] ciproflo DA Active U R 202-0 [facility] xacin 8-10 Clear 00:00: Alexander 00 [facility] ciproflo DA Active U 2020-0 [facility] xacin 8-09 Clear 00:00: Alexander 00 [facility] Sulfa DA Active U MALIKA 2020-0 [facility] (Sulfona 8-09 Clear mide 00:00: Alexander Antibiot 00 [facility]) [facility] codeine DA Active U R 202-0 [facility] 8-09 Clear 00:00: Alexander 00 [facility] ciproflo DA Active U R 202-0 [facility] xacin 8-09 Clear 00:00: Alexander 00 [facility] Sulfa DA Active U 2020-0 [facility] (Sulfona 8-09 Clear mide 00:00: Alexander Antibiot 00 [facility]) [facility] codeine DA Active U 2020-0 [facility] 8-09 Clear 00:00: Alexander [facility] Sulfa Allergy Active 2020-0 [place] Antibiot to [address] ics substan 00:00: e 00 Ciproflo Allergy Active Unknown Chest UT xacin to 3-27 tightness Health substanc 00:00: Chest e 00 tightness Codeine Allergy Active Unknown Chest UT to 3-27 tightness Health substanc 00:00: Chest e 00 tightness Codeine Propensi Active Other - See Chest Un josefa ty to comments 3 tightness ity o f adverse 00:00: [place] reaction 00 [facility] s Branch CIPROFLO DRUG Active Other-Cmnt Univ ers XACIN INGREDI 3 ity of 00:00: [place] 00 [facility] CODEINE DRUG Active Other-Cmnt Unive rs INGREDI 3 ity of 00:00: [place] [facility] Ciproflo Propensi Active Other - See Chest U nivers xacin ty to comments 3 tightness ity o f adverse 00:00: [place] reaction 00 Medical s Branch Sulfa DA Active U [facility] (Sulfona 1-13 Clear mide 00:00: Alexander Antibiot 00 [facility] codeine DA Active U 0 [facility] 1-13 Clear 00:00: Alexander 00 [facility] ciproflo DA Active U 0 [facility] xacin 1-13 Clear 00:00: Alexander 00 [facility] Sulfa DA Active U MALIKA 2017-0 [facility] (Sulfona 1-13 Clear mide 00:00: Alexander Antibiot 00 [facility]) [facility] codeine DA Active U R 2018-0 [facility] 1-13 Clear 00:00: Alexander 00 [facility] [place]ipro[place] R [address] [facility] xacin 1-13 Clear 00:00: Alexander 00 [facility] Cipro Allergy Active Univers to drug ity of (finding [place] Physici ans codeine Allergy Active Univers to drug ity of (finding [place] Physici ans sulfa Allergy Active Univers to drug ity of (finding [place] Physici ans NO KNOWN Drug Active Univers ALLERGIE Class ity of [facility] Family History Family Member Diagnosis Comments Start Date Stop Date Source Unknown Family history of Family History [place] Member diabetes [place] [facility] Unknown Family history of Family History Uni versity of Family Member arthritis [place] [facility] Unknown Family history of Family History Uni versity of Family Member cerebrovascular [place] [facility] accident (CVA) Social History Social Habit Start Date Stop Date Quantity Comments Source History SDNY [facility] Alcohol Comment History SDNY [facility] Alcohol Std Drinks History [facility] Alcohol Binge Exposure to Not sure [facility] SARS-CoV-2 (event) Alcohol intake 2021-06-16 2021-06-16 Lifetime [facility] 00:00:00 00:00:00 non-drinker (finding) Tobacco use and 2021-01-01 2021-01-01 Smokeless tobacco [facility] exposure 00:00:00 00:00:00 non-user History SDOH 2021-01-01 2021-01-01 1 [facility] Alcohol Frequency 00:00:00 00:00:00 Sex Assigned At [birth year] [facility] 00:00:00 00:00:00 Smoking Status Start Date Stop Date Source Tobacco smoking consumption unknown [facility] Never smoked tobacco [facility] Medications Ordered Filled Start Stop Current Ordering Indication Dosage Frequency Signature Comments Components Source Medication Medication Date Date Medication? Clinician (SIG) Name Name No known No No known UT medications 04-16 medication He alth 11:58: s 05 Sodium 2020- No [id number] 20mg UT Hyaluronate 01-27 Health solution 15:37: 15:37 prefilled 43 :00 syringe 20 mg Sodium 2020- No [id number] 20mg 20 mg, UT Hyaluronate 01-27 Intra-elinor H ealth solution 15:37: 15:37 cular, prefilled 43 :00 Once PRN syringe 20 Procedure, mg Starting on Tue01/27/21 at 1037, For 1 dose Sodium 2020- No [id number] 20mg UT Hyaluronate 01-20 9100 Health solution 22:23: 22:23 prefilled 45 :00 syringe 20 mg Sodium 2020- No [id number] 20mg 20 mg, U T Hyaluronate 01-20 91 Intra-elinor H ealth solution 22:23: 22:23 cular, prefilled 45 :00 Once PRN syringe 20 Procedure, mg Starting on Tue01/20/21 at 1723, For 1 dose Sodium 2020- No [id number] 20mg UT Hyaluronate 01-13 Health solution 15:46: 15:46 prefilled 11 :00 syringe 20 mg lidocaine 2020- No [id number] 1mL UT (Xylocaine) 01-13 Health 2 % 15:46: 15:46 injection 1 11 :00 mL bupivacaine 2020- No [id number] 1mL UT (Marcaine) 01-13 Health 0.5 % 15:46: 15:46 injection 1 11 :00 mL triamcinolo 2020- No [id number] 40mg UT ne 01-13 Health acetonide 15:46: 15:46 (Kenalog-40 11 :00 ) injection 40 mg Sodium 2020- No [id number] 20mg UT Hyaluronate 01-13 Health solution 15:46: 15:46 prefilled 11 :00 syringe 20 mg Sodium 2020- No [id number] 20mg 20 mg, UT Hyaluronate 01-13 Intra-elinor H ealth solution 15:46: 15:46 cular, prefilled 11 :00 Once PRN syringe 20 Procedure, mg Starting on 01/13/21 at 1046, For 1 dose triamcinolo 2020- No [id number] 40mg 40 mg, UT ne 01-13 Intra-elinor Health acetonide 15:46: 15:46 cular, (Kenalog-40 11 :00 Once PRN ) injection Procedure, 40 mg Starting on e 01/13/21 at 1046, For 1 dose bupivacaine 2020- No [id number] 1mL 1 mL, UT (Marcaine) 01-13 Injection, He alth 0.5 % 15:46: 15:46 Once PRN injection 1 11 :00 Procedure, mL Starting on 01/13/21 at 1046, For 1 dose lidocaine 2020- No [id number] 1mL 1 mL, U T (Xylocaine) 01-13 Injection, H ealth 2 % 15:46: 15:46 Once PRN injection 1 11 :00 Procedure, mL Starting on 01/13/21 at 1046, For 1 dose Sodium 2020- No [id number] 20mg 20 mg, UT Hyaluronate 01-13 Intra-elinor H ealth solution 15:46: 15:46 cular, prefilled 11 :00 Once PRN syringe 20 Procedure, mg Starting on Tue01/13/21 at 1046, For 1 dose Sodium 2020-2020- No [id number] 20mg UT Hyaluronate 01-06 Health solution 16:53: 16:53 prefilled 58 :00 syringe 20 mg Sodium 2020- No [id number] 20mg 20 mg, UT Hyaluronate 01-06 Intra-elinor H ealth solution 16:53: 16:53 cular, prefilled 58 :00 Once PRN syringe 20 Procedure, mg Starting on Tue01/06/21 at 1153, For 1 dose lidocaine 2020-2020- No [id number] 1mL UT (Xylocaine) 01-01 Health 1 % 16:10: 16:10 injection 1 34 :00 mL bupivacaine 2020- No [id number] 1mL UT (Marcaine) 01-01 Health 0.25 % 16:10: 16:10 injection 1 34 :00 mL Sodium 2020- No [id number] 20mg UT Hyaluronate 01-01 Health solution 16:10: 16:10 prefilled 34 :00 syringe 20 mg Sodium 2020- No [id number] 20mg 20 mg, UT Hyaluronate 01-01 Intra-elinor H ealth solution 16:10: 16:10 cular, prefilled 34 :00 Once PRN syringe 20 Procedure, mg Starting on Massiel 01/01/21 at 1110, For 1 dose bupivacaine 2020- No [id number] 1mL 1 mL, UT (Marcaine) 01-01 Injection, He alth 0.25 % 16:10: 16:10 Once PRN injection 1 34 :00 Procedure, mL Starting on Massiel 01/01/21 at 1110, For 1 dose lidocaine 2020- No [id number] 1mL 1 mL, U T (Xylocaine) 01-01 Injection, H ealth 1 % 16:10: 16:10 Once PRN injection 1 34 :00 Procedure, mL Starting on Massiel 01/01/21 at 1110, For 1 dose tamsulosin 2021-0 Yes .4mg 0.4 mg. UT (Flomax) 5-27 Health 0.4 MG 24 16:05: hr capsule 57 tamsulosin 2021-0 Yes .4mg 0.4 mg. UT (Flomax) 5-27 Health 0.4 MG 24 16:05: hr capsule 57 tamsulosin 2021-0 Yes .4mg 0.4 mg. UT (Flomax) 5-27 Health 0.4 MG 24 16:05: hr capsule 57 tamsulosin 2021-0 Yes .4mg 0.4 mg. UT (Flomax) 5-27 Health 0.4 MG 24 16:05: hr capsule 57 tamsulosin 2021-0 Yes .4mg 0.4 mg. UT (Flomax) 5-27 Health 0.4 MG 24 16:05: hr capsule 57 tamsulosin 2021-0 Yes .4mg 0.4 mg. UT (Flomax) 5-27 Health 0.4 MG 24 11:05: hr capsule 57 tamsulosin 2021-0 Yes .4mg 0.4 mg. UT (Flomax) 5-27 Health 0.4 MG 24 11:05: hr capsule 57 Diclofenac 2021-0 Yes [id number] Apply U T Sodium 5-27 topically Health (Voltaren) 00:00: 4 (four) 1 % 00 times a external day if gel needed (pain). Do not apply more than 8 grams daily. Diclofenac 2020-0 Yes [id number] Apply U T Sodium 5-27 topically Health (Voltaren) 00:00: 4 (four) 1 % 00 times a external day if gel needed (pain). Do not apply more than 8 grams daily. Diclofenac 2020-0 Yes [id number] Apply UT Sodium 5-27 9100 topically Health (Voltaren) 00:00: 4 (four) 1 % 00 times a external day if gel needed (pain). Do not apply more than 8 grams daily. Diclofenac 1-0 Yes [id number] Apply UT Sodium 5-27 9100 topically Health (Voltaren) 00:00: 4 (four) 1 % 00 times a external day if gel needed (pain). Do not apply more than 8 grams daily. Diclofenac 2020-0 Yes [id number] Apply U T Sodium 5-27 topically Health (Voltaren) 00:00: 4 (four) 1 % 00 times a external day if gel needed (pain). Do not apply more than 8 grams daily. Diclofenac 2020-0 Yes [id number] Apply U T Sodium 5-27 topically Health (Voltaren) 00:00: 4 (four) 1 % 00 times a external day if gel needed (pain). Do not apply more than 8 grams daily. Diclofenac 2020-0 Yes [id number] Apply U T Sodium 5-27 topically Health (Voltaren) 00:00: 4 (four) 1 % 00 times a external day if gel needed (pain). Do not apply more than 8 grams daily. triamcinolo 0 Yes UT ne 5-26 Health (Kenalog) 00:00: 0.5 % cream 00 doxycycline 2020-0 Yes UT (Vibra-Tabs 5-26 Health ) 100 MG 00:00: tablet 00 triamcinolo 2020-0 Yes UT ne 5-26 Health (Kenalog) 00:00: 0.5 % cream 00 doxycycline 2020-0 Yes UT (Vibra-Tabs 5-26 Health ) 100 MG 00:00: tablet 00 triamcinolo 2020-0 Yes UT ne 5-26 Health (Kenalog) 00:00: 0.5 % cream 00 doxycycline 2020-0 Yes UT (Vibra-Tabs 5-26 Health ) 100 MG 00:00: tablet 00 triamcinolo 2020-0 Yes UT ne 5-26 Health (Kenalog) 00:00: 0.5 % cream 00 doxycycline 2020-0 Yes UT (Vibra-Tabs 5-26 Health ) 100 MG 00:00: tablet 00 triamcinolo 2020-0 Yes UT ne 5-26 Health (Kenalog) 00:00: 0.5 % cream 00 doxycycline 2020-0 Yes UT (Vibra-Tabs 5-26 Health ) 100 MG 00:00: tablet 00 triamcinolo 2020-0 Yes UT ne 5-26 Health (Kenalog) 00:00: 0.5 % cream 00 doxycycline 2020-0 Yes UT (Vibra-Tabs 5-26 Health ) 100 MG 00:00: tablet 00 triamcinolo 2020-0 Yes UT ne 5-26 Health (Kenalog) 00:00: 0.5 % cream 00 doxycycline 2020-0 Yes UT (Vibra-Tabs 5-26 Health ) 100 MG 00:00: tablet 00 clonazePAM 2020-0 Yes UT (KlonoPIN) 5-19 Health 0.5 MG 00:00: tablet 00 clonazePAM 2020-0 Yes UT (KlonoPIN) 5-19 Health 0.5 MG 00:00: tablet 00 clonazePAM 2020-0 Yes UT (KlonoPIN) 5-19 Health 0.5 MG 00:00: tablet 00 clonazePAM 2020-0 Yes UT (KlonoPIN) 5-19 Health 0.5 MG 00:00: tablet 00 clonazePAM 2020-0 Yes UT (KlonoPIN) 5-19 Health 0.5 MG 00:00: tablet 00 clonazePAM 2020-0 Yes UT (KlonoPIN) 5-19 Health 0.5 MG 00:00: tablet 00 clonazePAM 2020-0 Yes UT (KlonoPIN) 5-19 Health 0.5 MG 00:00: tablet 00 traMADol 2020-0 Yes UT (Ultram) 50 5-17 Health MG tablet 00:00: 00 propafenone 2020-0 Yes 225mg Q12H Take 225 U T SR (Rythmol 5-17 mg by Health SR) 225 MG 00:00: mouth 12 hr 00 every 12 capsule (twelve) hours. traMADol 2020-0 Yes UT (Ultram) 50 5-17 Health MG tablet 00:00: 00 propafenone 2020-0 Yes 225mg Q12H Take 225 U T SR (Rythmol 5-17 mg by Health SR) 225 MG 00:00: mouth 12 hr 00 every 12 capsule (twelve) hours. traMADol 2020-0 Yes UT (Ultram) 50 5-17 Health MG tablet 00:00: 00 propafenone 2020-0 Yes 225mg Q12H Take 225 U T SR (Rythmol 5-17 mg by Health SR) 225 MG 00:00: mouth 12 hr 00 every 12 capsule (twelve) hours. traMADol 2020-0 Yes UT (Ultram) 50 5-17 Health MG tablet 00:00: 00 propafenone 2020-0 Yes 225mg Q12H Take 225 U T SR (Rythmol 5-17 mg by Health SR) 225 MG 00:00: mouth 12 hr 00 every 12 capsule (twelve) hours. traMADol 2020-0 Yes UT (Ultram) 50 5-17 Health MG tablet 00:00: 00 propafenone 1-0 Yes 225mg Q12H Take 225 U T SR (Rythmol 5-17 mg by Health SR) 225 MG 00:00: mouth 12 hr 00 every 12 capsule (twelve) hours. traMADol 2020-0 Yes UT (Ultram) 50 5-17 Health MG tablet 00:00: 00 propafenone 2020-0 Yes 225mg Q12H Take 225 U T SR (Rythmol 5-17 mg by Health SR) 225 MG 00:00: mouth 12 hr 00 every 12 capsule (twelve) hours. traMADol 2020-0 Yes UT (Ultram) 50 5-17 Health MG tablet 00:00: 00 propafenone 2020-0 Yes 225mg Q12H Take 225 U T SR (Rythmol 5-17 mg by Health SR) 225 MG 00:00: mouth 12 hr 00 every 12 capsule (twelve) hours. meloxicam 2020-0 Yes UT (Mobic) 7.5 4-07 Health MG tablet 00:00: 00 meloxicam 2020-0 Yes UT (Mobic) 7.5 4-07 Health MG tablet 00:00: 00 meloxicam 1-0 Yes UT (Mobic) 7.5 4-07 Health MG tablet 00:00: 00 meloxicam 2021-0 Yes UT (Mobic) 7.5 4-07 Health MG tablet 00:00: 00 meloxicam 1-0 Yes UT (Mobic) 7.5 4-07 Health MG tablet 00:00: 00 meloxicam 1-0 Yes UT (Mobic) 7.5 4-07 Health MG tablet 00:00: 00 meloxicam 2020-0 Yes UT (Mobic) 7.5 4-07 Health MG tablet 00:00: 00 levoFLOXaci 2020-0 Yes UT n 4-05 Health (Levaquin) 00:00: 750 MG 00 tablet levoFLOXaci 2021-0 Yes UT n 4-05 Health (Levaquin) 00:00: 750 MG 00 tablet levoFLOXaci 2020-0 Yes UT n 4-05 Health (Levaquin) 00:00: 750 MG 00 tablet levoFLOXaci 2020-0 Yes UT n 4-05 Health (Levaquin) 00:00: 750 MG 00 tablet levoFLOXaci 2020-0 Yes UT n 4-05 Health (Levaquin) 00:00: 750 MG 00 tablet levoFLOXaci 2020-0 Yes UT n 4-05 Health (Levaquin) 00:00: 750 MG 00 tablet levoFLOXaci 2020-0 Yes UT n 4-05 Health (Levaquin) 00:00: 750 MG 00 tablet levoFLOXaci 2020-2020- No [id number] 750mg Take 1 Univers n 11-06 tablet by ity of (LEVAQUIN) 00:00: 04:59 mouth [place] 750 mg 00 :00 every 24 Medical tablet ( [place] ur) hours for 7 days. levoFLOXaci 2020- No [id number] 750mg Take 1 Univers n 11-06 tablet by ity of (LEVAQUIN) 00:00: 04:59 mouth [place] 750 mg 00 :00 every 24 Medical tablet ( [place] ur) hours for 7 days. levoFLOXaci No 750mg 750 mg, U nivers n 11-05 Oral, ONCE ity of (LEVAQUIN) 22:45: 21:53 NOW, 1 [place] tablet 750 00 :00 dose, Tue Medi felicity mg 11/05/20 at Branch 1745, [place]
Re ason for Anti-Infec tive: Documented Infection< br>Documen sabino Infection Site: Abdominal< br>Duratio n of Therapy: 7 days ketorolac 2020- No 15mg 15 mg, Unive rs (TORADOL) 11-05 Slow IV ity of injection 21:45: 21:54 Push, [place] 15 mg 00 :00 ONCE, 1 Medical dose, Tue Branch 11/05/20 at 1645, Routine
member services coordinator approving Restricted medication : LAWANDA BURRELL iohexol 2020- No [id number] 100mL 100 mL, U nivers (OMNIPAQUE 11-05 Intravenou it y of 350 19:45: 20:02 s, ONCE, 1 [place] BULK-100 00 :00 dose, [facility] Medica l mL) 11/05/20 at Branch injection 1445, 100 mL Routine traMADoL 2020- No 50mg 50 mg, Univer s (ULTRAM) 11-05 Oral, ONCE ity of tablet 50 19:45: 19:45 NOW, 1 [place] mg 00 :00 dose, [facility] Medical 11/05/20 at Branch 1445, [place] ketorolac 2020-0 Yes 10mg Take 10 mg UT (Toradol) 3-31 by mouth. Healt h 10 MG 00:00: tablet 00 ketorolac 2020-0 Yes 10mg Take 10 mg UT (Toradol) 3-31 by mouth. Healt h 10 MG 00:00: tablet 00 ketorolac 1-0 Yes 10mg Take 10 mg UT (Toradol) 3-31 by mouth. Healt h 10 MG 00:00: tablet 00 ketorolac 2020-0 Yes 10mg Take 10 mg UT (Toradol) 3-31 by mouth. Healt h 10 MG 00:00: tablet 00 ketorolac 2020-0 Yes 10mg Take 10 mg UT (Toradol) 3-31 by mouth. Healt h 10 MG 00:00: tablet 00 ketorolac 1-0 Yes 10mg Take 10 mg UT (Toradol) 3-31 by mouth. Healt h 10 MG 00:00: tablet 00 ketorolac 1-0 Yes 10mg Take 10 mg UT (Toradol) 3-31 by mouth. Healt h 10 MG 00:00: tablet 00 ketorolac 2021-0 Yes [id number] 10mg Take 1 Un josefa 10 mg 3-31 tablet by ity of tablet 00:00: mouth [place] 00 every 6 Medical (six) Branch hours as needed for Pain (scale 4-6) or Pain (scale 7-10). ketorolac 2021-0 Yes [id number] 10mg Take 1 Un josefa 10 mg 3-31 tablet by ity of tablet 00:00: mouth [place] 00 every 6 Medical (six) Branch hours as needed for Pain (scale 4-6) or Pain (scale 7-10). ketorolac 2021-0 Yes [id number] 10mg Take 1 Un josefa 10 mg 3-31 tablet by ity of tablet 00:00: mouth [place] 00 every 6 Medical (six) Branch hours as needed for Pain (scale 4-6) or Pain (scale 7-10). Meloxicam Meloxicam Yes SHEY WOODS TAKE 1 Univers 15 MG Oral 15 MG Oral 2-09 M.D. TABLET BY ity of Tablet Tablet 00:00: MOUTH 00 DAILY Physici NEEDED ans traMADol traMADol Yes SHEY WOODS Q4H TAKE 1 TO Univers HCl - 50 MG HCl - 50 MG 2-08 M.D. 2 TABLETS ity of Oral Tablet Oral Tablet 00:00: EVERY 4 [place] 00 HOURS Physici NEEDED FOR ans PAIN. Methocarbam Methocarbam 2017-08 Yes AILEEN Q0.3333D TAKE 1 Univers ol 500 MG ol 500 MG 0-09 LI-MAHAD TABLET 3 ity of Oral Tablet Oral Tablet 00:00: JÚNIOR M.D. TIMES [place] 00 DAILY. Physici ans Propafenone Propafenone Yes U nivers HCl TABS HCl TABS it of [place] Physici ans Tamsulosin Tamsulosin Yes Uni vers HCl - 0.4 HCl - 0.4 ity o f MG Oral MG Oral [place] Capsule Capsule Physici ans Levothyroxi Levothyroxi Yes U nivers ne Sodium ne Sodium ity o f TABS TABS [place] [facility] ans No known No Univers medications [facility] No known No Univers medications [facility] Vital Signs Vital Name Observation Time Observation Value Comments Source Systolic blood 2021-03-12 00:15:00 109 mm[Hg] Univer sity [facility] [place] Diastolic blood 2021-03-12 00:15:00 69 mm[Hg] [facility] Heart rate 2021-03-12 00:15:00 70 /[facility] Respiratory rate 2021-03-12 00:15:00 18 /min [facility] Oxygen saturation in 2021-03-12 00:15:00 97 /min [facility] Arterial blood by [facility] Pulse oximetry Branch Body temperature 2021-03-11 20:23:00 36.61 Catherine [facility] Body height 2021-03-11 20:23:00 172.7 cm [facility]i ty [facility] [place] [facility] [place] Body weight 2021-03-11 20:23:00 61.236 kg Universi ty [facility] [place] [facility] BMI 2021-03-11 20:23:00 20.53 kg/m2 [facility] [place] [facility] Systolic blood 2021-03-12 00:15:00 109 mm[Hg] Univer sity of pressure [place] [facility] Diastolic blood 2021-03-12 00:15:00 69 mm[Hg] [facility] Heart rate 2021-03-12 00:15:00 70 /min Universi ty of [facility] Respiratory rate 2021-03-12 00:15:00 18 /min [facility] Oxygen saturation in 2021-03-12 00:15:00 97 /min [facility] Arterial blood by [facility] Pulse oximetry [place] Body temperature 2021-03-11 20:23:00 36.61 Catherine [facility] Body height 2021-03-11 20:23:00 172.7 cm [facility]i ty [facility] [place] [facility] [place] Body weight 2021-03-11 20:23:00 61.236 kg Universi ty of [facility] BMI 2021-03-11 20:23:00 20.53 kg/m2 Universi ty of [facility] Body height 2021-01-13 15:44:00 172.7 cm [facility] Body weight 2021-01-13 15:44:00 58.968 kg [facility] BMI 2021-01-13 15:44:00 19.77 kg/m2 [facility] Body height 2021-01-13 15:44:00 172.7 cm [facility] Body weight 2021-01-13 15:44:00 58.968 kg [facility] BMI 2021-01-13 15:44:00 19.77 kg/m2 [facility] Body height 2021-01-06 16:52:00 167.6 cm [facility] Body weight 2021-01-06 16:52:00 72.576 kg [facility] BMI 2021-01-06 16:52:00 25.82 kg/m2 [facility] Body height 2021-01-06 16:52:00 167.6 cm [facility] Body weight 2021-01-06 16:52:00 72.576 kg [facility] BMI 2021-01-06 16:52:00 25.82 kg/m2 [facility] Body height 2021-01-01 16:04:00 175.3 cm [facility] Body weight 2021-01-01 16:04:00 81.647 kg [facility] BMI 2021-01-01 16:04:00 26.58 kg/m2 [facility] Body height 2021-01-01 16:04:00 175.3 cm [facility] Body weight 2021-01-01 16:04:00 81.647 kg [facility] BMI 2021-01-01 16:04:00 26.58 kg/m2 [facility] Systolic blood 2020-11-05 22:00:00 137 mm[Hg] Univer sity of pressure [facility] Branch Diastolic blood 2020-11-05 22:00:00 75 mm[Hg] Unive rsity of [facility] Medical Branch Heart rate 2020-11-05 22:00:00 98 /min Universi ty [facility] [place] [facility] Respiratory rate 2020-11-05 22:00:00 16 /min Univ ersity of [place] [facility] Oxygen saturation in 2020-11-05 22:00:00 98 /min University of Arterial blood by [facility] Pulse oximetry Branch Body temperature 2020-11-05 18:38:00 36.44 Catherine Univ ersity of [place] [facility] [place] Body weight 2020-11-05 18:38:00 59.875 kg Universi ty [facility] [place] [facility] Systolic blood 2020-11-05 22:00:00 137 mm[Hg] Univer sity of pressure [facility] Branch Diastolic blood 2020-11-05 22:00:00 75 mm[Hg] Unive rsity of [facility] Branch Heart rate 2020-11-05 22:00:00 98 /min Universi ty [facility] [place] [facility] Respiratory rate 2020-11-05 22:00:00 16 /min Univ ersity of [place] [facility] Oxygen saturation in 2020-11-05 22:00:00 98 /min University of Arterial blood by [facility] Pulse oximetry Branch Body temperature 2020-11-05 18:38:00 36.44 Catherine Univ ersity of [place] [facility] Body weight 2020-11-05 18:38:00 59.875 kg Universi ty [facility] [place] [facility] Systolic blood 2020-11-01 14:00:00 151 mm[Hg] Univer sity of pressure [place] [facility] Diastolic blood 2020-11-01 14:00:00 84 mm[Hg] Unive rsity of pressure [place] [facility] Heart rate 2020-11-01 14:00:00 93 /min [facility]i ty [facility] [place] [facility] Respiratory rate 2020-11-01 14:00:00 13 /min Univ ersity of [place] [facility] Oxygen saturation in 2020-11-01 14:00:00 95 /min University of Arterial blood by [place] [employer] felicity Pulse oximetry Branch Body temperature 2020-11-01 11:24:00 36.78 Catherine Univ ersity of [place] [facility] Body weight 2020-11-01 11:24:00 58.968 kg Universi ty [facility] [place] [facility] Systolic blood 2020-11-01 14:00:00 151 mm[Hg] Univer [facility]ity [facility] Diastolic blood 2020-11-01 14:00:00 84 mm[Hg] Unive rsity of pressure [facility] Heart rate 2020-11-01 14:00:00 93 /min [facility] Respiratory rate 2020-11-01 14:00:00 13 /min [facility] Oxygen saturation in 2020-11-01 14:00:00 95 /min University of Arterial blood by [facility] Pulse oximetry Branch Body temperature 2020-11-01 11:24:00 36.78 Catherine [facility] Body weight 2020-11-01 11:24:00 58.968 kg [facility] Systolic blood 2020-10-31 13:06:00 169 mm[Hg] Univer sity [facility] Diastolic blood 2020-10-31 13:06:00 89 mm[Hg] Unive rsity of pressure [facility] Heart rate 2020-10-31 13:06:00 104 /min [facility] Body temperature 2020-10-31 13:06:00 36.39 Catherine [facility] Respiratory rate 2020-10-31 13:06:00 14 /min [facility] 2020-10-31 13:06:00 58.968 [facility] in 2020-10-31 13:06:00 99 /min University of Arterial blood by [facility] Pulse oximetry Branch Systolic blood 2020-10-31 13:06:00 169 mm[Hg] Univer sity of pressure [facility] Diastolic blood 2020-10-31 13:06:00 89 mm[Hg] [facility] Heart rate 2020-10-31 13:06:00 104 /min [facility] Body temperature 2020-10-31 13:06:00 36.39 Catherine [facility] Respiratory rate 2020-10-31 13:06:00 14 /min [facility] Body weight 2020-10-31 13:06:00 58.968 [facility] Oxygen saturation in 2020-10-31 13:06:00 99 /min University of Arterial blood by [facility] Pulse oximetry Branch Procedures Procedure Date / Time Performing Clinician Source Performed [id number] 2021-03-17 00:00:00 SARAA SHAUNNA Mancuso [facility] TROPONIN I 2021-03-11 21:51:00 Leatha Red [facility] COMP. METABOLIC PANEL 2021-03-11 21:51:00 Leatha Red [facility] ([id number]) [facility] CBC WITH DIFF 2021-03-11 21:51:00 Leatha Red [facility] PROTHROMBIN TIME / INR 2021-03-11 21:51:00 [facility]atha Red [facility] Branch ACTIVATED PARTIAL 2021-03-11 21:51:00 Leatha Red [facility] THRMPLAS TOMASA [facility] COVID-19 (ID NOW RAPID 2021-03-11 21:51:00 Leatha Red [facility]) Medical Branch XR CHEST 1 VW 2021-03-11 20:43:53 Leatha Red [facility] HB ECG ROUTINE & RHYTHM 2021-03-11 20:21:18 Leatha Red [facility] CONSENT/REFUSAL FOR 2021-03-11 20:15:08 Doctor Unassigned, [facility] DIAGNOSIS AND TREATMENT [facility] [place] ARTHROCENTESIS 2021-01-27 15:37:43 ChuckShey george [facility] ASPIR&/INJ MAJOR JT/BURSA W/O [place] ARTHROCENTESIS 2021-01-20 22:23:45 ShivaniDarrel [facility] ASPIR&/INJ MAJOR JT/BURSA W/O US ARTHROCENTESIS ASPIR&/INJ 2021-01-13 15:46:11 ChuckShey [facility] MAJOR JT/BURSA W/O [place] BILATERAL [place] ARTHROCENTESIS 2021-01-06 16:53:58 ChuckShey george [facility] ASPIR&/INJ MAJOR JT/BURSA W/O [place] ARTHROCENTESIS 2021-01-01 16:10:34 Britany Hoodsay [facility] ASPIR&/INJ MAJOR JT/BURSA W/O [place] ARTHROCENTESIS 2020-12-15 16:00:00 ChuckShey [facility] ASPIR&/INJ MAJOR JT/BURSA W/O US CT ABDOMEN PELVIS W 2020-11-05 20:07:22 Lawanda Burrell [facility] Branch COMP. METABOLIC PANEL 2020-11-05 19:07:00 Lawanda Burrell [facility] ([id number]) [facility] [place] CBC WITH DIFF 2020-11-05 19:07:00 Lawanda Burrell Roslyn o [facility] URINALYSIS 2020-11-05 19:07:00 Lawanda Burrell Roslyn o [facility] CONSENT/REFUSAL FOR 2020-11-05 18:33:28 Doctor Unassigned, [facility] DIAGNOSIS AND TREATMENT [facility] TROPONIN I 2020-11-01 13:44:00 Jen Hernandez [facility] XR CHEST 1 VW 2020-11-01 11:46:18 Alejandro Carter [facility] LIPASE 2020-11-01 11:32:00 Alejandro Carter [facility] TROPONIN I 2020-11-01 11:32:00 Alejandro Carter [facility] COMP. METABOLIC PANEL 2020-11-01 11:32:00 Alejandro Carter [facility] ([id number]) [facility] CBC WITH DIFF 2020-11-01 11:32:00 Alejandro Carter [facility] PROTHROMBIN TIME / INR 2020-11-01 11:32:00 Alejandro Carter [facility] ACTIVATED PARTIAL 2020-11-01 11:32:00 Alejandro Carter [facility] THRMPLAS [facility] CONSENT/REFUSAL FOR 2020-11-01 11:22:52 Doctor Unassigned, [facility] SCROTUM AND CONTENTS 2020-10-31 13:52:08 Jen Hernandez [facility] URINALYSIS 2020-10-31 13:25:00 Jen Hernandez [facility] NOTICE OF PRIVACY 2020-10-31 12:57:20 [facility] PR[facility] MR Shoulder w/wo contrast 2020-10-16 [facility]:00[facility] [id number] Shoulder w contrast 2020-09-15 00:00:00 [facility] [id number] Physicians MR Shoulder w contrast 2019-08-06 00:00:00 [facility] [id number] Physicians MRI Spine cervical wo 2019-08-06 00:00:00 [facility] contrast [id number] Physicians [U] XRAY SHOULDER MIN 2 2019-02-12 00:00:00 [facility] VWS LEFT [id number] Physicians MR Shoulder wo contrast 2018-10-06 00:00:00 [facility] [id number] Physicians [U] XRAY HIP UNILATERAL 2018-03-27 00:00:00 [facility] MIN 2 VWS LEFT 92348 Physicians [U] XRAY SPINE 2018-03-27 00:00:00 Roslyn o f [place] LUMBOSACRAL 2 OR 3 VWS Physician s [id number] MR Shoulder wo contrast 2018-03-07 00:00:00 [facility] 10095 Physicians [U] XRAY SHOULDER MIN 2 2018-03-02 00:00:00 [facility] VWS LEFT 13632 Physicians [U] XRAY SPINE CERVICAL 2 2018-03-02 00:00:00 Un [facility] OR 3 [facility] 9[address]90 Physicians History of Hernia repair Univers [facility] Physicians Plan of Care Planned Activity Planned Date Details Comments Source Diagnostic Test 2018-10-06 MR Shoulder wo [facility] Pending 00:00:00 contrast 22166 Physicians [code = 80075] Diagnostic Test 2018-10-06 MR Shoulder wo [facility] Pending 00:00:00 contrast 89185 Physicians [code = 19512] Encounters Start End Encounter Admission Attending Care Care Encounter Source Date/Time Date/Time Type Type Clinicians Facility Department ID 2021-06-08 Emergency [facility] [id number] Univers 13:11:17 [facility] 2021-06-07 Emergency [facility] [id number] Univers 09:50:13 [facility] 2021-06-07 Emergency [facility] [id number] Univers 08:56:13 [facility] 2021-06-07 Emergency [facility] [id number] Univers 08:40:45 [facility] 2021-04-22 Inpatient EL Raslan, HCACL OUTD [id number] [facility] 09:30:00 Jose [id number] [facility] 2021-04-20 Inpatient EL Raslan, HCACL OUTD [id number] [facility] 09:30:00 Jose [id number] [facility] 2021-04-16 Outpatient ADDISON [facility] [id number] [place] 08:21:40 [facility] 2021-03-16 Inpatient EL Raslan, HCACL OUTD [id number] [facility] 15:00:00 Jose [id number] [facility] 2021-03-13 Inpatient Raslan, HCACL OUTD [id number] [facility] 09:45:00 Jose [id number] [facility] 2021-01-01 Outpatient CHUCK, SHEY [facility] [id number] [place] 12:19:34 [facility] 2021-01-01 Outpatient CHUCK SHEY [facility] [id number] [place] 12:19:02 Health 2021-06-16 2021-06-16 Office Shey Woods [facility] 1.2.840.114 [id number] [place] 09:51:46 13:06:38 Visit [place] 350.1.13.58 [facility] MEDICAL 9.2.7.2.686 PLA[address] 8 [id number] [id number] 2021-05-27 2021-05-27 Telephone Azul Hood [facility] 1.2.840. 114 [id number] [place] 00:00:00 00:00:00 Azul Hood [place] 350.1.13.58 [facility] MEDICAL 9.2.7.2.686 PLAZA 5 [id number] 5 2021-03-26 2021-03-26 Outpatient BLUE MCARTHUR [id number] Memoria 13:00:00 13:00:00 20 ramses Bianchi 2021-03-20 2021-03-20 Outpatient BLUE MCARTHUR [id number] Memoria 10:30:00 10:30:00 18 ramses Bianchi 2021-03-17 2021-03-18 Inpatient MILLA Ash, HCACL INTE [id number] [facility] 18:21:00 15:19:00 Jose [id number] [facility] 2021-03-11 2021-03-11 Emergency [facility] [id number] 15:27:00 19:22:00 Leatha R Health 350.1.13.10 League 4.2.7.2.686 [facility] [phone] [address] ([facility]) 2021-03-11 2021-03-11 Emergency [facility] [id number] [facility] 15:27:00 19:22:00 Leatha R Health 350.1.13.10 it y of League 4.2.7.2.686 [facility] [id number] [address] ([facility]) 2021-02-26 2021-02-26 Outpatient GABRIELA MCARTHUR [id number] Memoria 11:20:00 11:20:00 19 ramses Bianchi 2021-02-182021-02-18 Emergency E MHBL MHBL [id number] MHBL 09:34:00 09:34:00 2021-02-13 2021-02-13 Outpatient MHIE MHIE [id number] Memoria 10:40:00 10:40:00 15 ramses Bianchi 2021-02-12 2021-02-12 Outpatient MHIE MHIE [id number] Memoria 14:00:00 14:00:00 17 ramses SalinasArias 2021-02-10 2021-02-10 Emergency E MHBL MED [id number] MHBL 10:07:00 10:07:00 2021-01-27 2021-01-27 Office Shey Woods UTP H 1.2.840.114 [id number] [place] 10:16:35 10:57:13 [facility] [place] [facility].1.13.58 [facility] MEDICAL 9.2.7.2.686 PLAZA 6 [id number] 2021-01-27 2021-01-27 Office Shey Woods UTP H 1.2.840.114 12 [id number] 10:16:35 10:57:13 Visit [place] 350.1.13.58 MEDICAL 9.2.7.2.686 PLAZA 6 [id number] 5 2021-01-20 2021-01-20 Office Shey Woods UTP H 1.2.840.114 12 [id number] [place] 10:37:29 13:04:49 Visit [place] 350.1.13.58 [facility] MEDICAL 9.2.7.2.686 PLAZA 1 [id number] 5 2021-01-20 2021-01-20 Office Shey Woods UTP H 1.2.840.114 12 [id number] 10:37:29 13:04:49 Visit [place] 350.1.13.58 MEDICAL 9.2.7.2.686 PLAZA 7 [id number] 5 2021-01-16 2021-01-16 Outpatient MHIE MHIE [id number] Memoria 13:45:00 13:45:00 16 ramses Bianchi 2021-01-16 2021-01-16 Outpatient MHIE MHIE [id number] Memoria 09:00:00 09:00:00 14 ramses Bianchi 2021-01-13 2021-01-13 Office Shey Woods UTP [facility] 1.2.840.114 12 [id number] [place] 10:27:11 11:43:26 Visit [place] 350.1.13.58 H ealth MEDICAL 9.2.7.2.686 PLAZA 2 [id number] 5 2021-01-13 2021-01-13 Office Shey Woods UTP [facility] 1.2.840.114 12 [id number] 10:27:11 11:43:26 Visit [place] 350.1.13.58 MEDICAL 9.2.7.2.686 PLAZA 8 [id number] 2021-01-09 2021-01-09 Outpatient [facility] [id number] Memoria 09:00:00 09:00:00 13 ramses Bianchi 2021-01-06 2021-01-06 Office Shey Woods [facility] 1.2.840.114 12 [id number] [place] 11:22:45 15:21:16 Visit [place] 350.1.13.58 H ealth MEDICAL 9.2.7.2.686 PLAZA 0 [id number] 2021-01-06 2021-01-06 Office Shey Woods UTP [facility] 1.2.840.114 12 [id number] 11:22:45 15:21:16 Visit [place] 350.1.13.58 MEDICAL 9.2.7.2.686 PLAZA 2 [id number] 5 2021-01-01 2021-01-01 Office Shey Woods [facility] 1.2.840.114 12 [id number] [place] 09:47:54 12:20:16 Visit [place] 350.1.13.58 H ealth MEDICAL 9.2.7.2.686 PLAZA 3 [id number] 5 2021-01-01 2021-01-01 Office Shey Woods UTP [facility] 1.2.840.114 12 [id number] 09:47:54 12:20:16 Visit [place] 350.1.13.58 MEDICAL 9.2.7.2.686 PLAZA 6 [id number] 5 2020-12-09 2020-12-09 EXT MHH OP Shey Woods EXT MSRDP 1.2.840.1 14 [id number] [place] 00:00:00 00:00:00 LOCATION 350.1.13.58 H ealth 9.2.7.2.686 [id number] 2020-12-05 2020-12-05 Outpatient MHIE MHIE [id number] Memoria 09:00:00 09:00:00 12 ramses Bianchi 2020-12-04 2020-12-04 Appointmen DELICIA WOODS Orthopedics [id number] Univers 15:45:00 15:45:00 t; SHEY WOODS M.D. - Lilian Lockett M.D. [place] [facility] 2020-12-03 2020-12-03 Outpatient MHIE MHIE [id number] Memoria 09:45:00 09:45:00 11 ramses Bianchi 2020-11-25 2020-11-25 Outpatient R MARBIN, [facility] [id number] Univers 08:00:00 08:00:00 RINA [id number] [facility] 2020-11-21 2020-11-21 Outpatient MHIE MHIE [id number] Memoria 15:45:00 15:45:00 10 ramses Bianchi 2020-11-18 2020-11-18 Appointmen DELICIA WOODS Orthopedics [id number] Univers 15:15:00 15:15:00 t; SHEY WOODS M.D. - Lilian Lockett M.D. [place] [facility] 2020-11-13 2020-11-13 Outpatient MHSE MHSE [id number] MH 07:13:00 07:13:00 [facility] 2020-11-08 2020-11-08 [facility] [id number] 00:00:00 00:00:00 Patient [place] 350.1.13.10 Does Not Renu 4.2.7.2.686 Have A Professio [id number] [address] 2020-11-08 2020-11-08 Telephone Pcp, [facility] [id number] Univers 00:00:00 00:00:00 Patient [place] 350.1.13.10 i ty of Does Not [place] 4.2.7.2.686 Cesar as Have A Professio [id number] Me dical nal 204 [facility] 2020-11-05 2020-11-05 Emergency Ashanti, [facility] [id number] [id number] 13:40:00 17:38:00 Lawanda A Health 350.1.13.10 League 4.2.7.2.686 [facility] [phone] [address] ([facility]) 2020-11-05 2020-11-05 Emergency Ashanti, [facility] [id number] Univers 13:40:00 17:38:00 Lawanda A Health 350.1.13.10 it y of [facility] 4.2.7.2.686 [place] [facility] [phone] [address] ([facility]) 2020-11-01 2020-11-01 Emergency Emma, [facility] [id number] 06:18:00 09:48:00 Alejandro George [place] 350.1.13.10 [place] 4.2.7.2.686 [place] [phone] [id number] 2020-11-01 2020-11-01 Emergency Emma, [facility] 1.2.700.529 [id number] Univers 06:18:00 09:48:00 Alejandro George [place] 350.1.13.10 ity of [place] 4.2.7.2.[address] [facility] s [place] [id number] [address] 2020-10-31 2020-10-31 Emergency David, TNDENZEL 1.2.840.114 [id number] 08:01:00 09:37:00 Jen Helms 350.1.13.10 [place] 4.2.7.2.686 [place] [id number] [id number] 2020-10-31 2020-10-31 Emergency David, [facility] 1.2.840.114 [id number] Univers 08:01:00 09:37:00 Jen Helms 350.1.13.10 ity of [place] 4.2.7.2.686 [facility] [phone] [facility] 084 Branch 2020-10-31 2020-10-31 Orders Doctor JET 1.2.840.114 [id number] 00:00:00 00:00:00 Only Unassigned, ST[place] 350.1.13.10 [place] [facility] 4.2.7.2.686 [id number] [id number] 2020-10-31 2020-10-31 Orders Doctor JET 1.2.840.114 [id number] Univers 00:00:00 00:00:00 Only Unassigned, STAR 350.1.13.10 ity of [place] [facility] 4.2.7.2.686 [facility] [phone] [facility] 009 Branch 2020-10-23 2020-10-23 Appointmen DELICIA WOODS [facility] [id number] Univers 09:15:00 09:15:00 t; SHEY WOODS M.D. i ty cecilia AKT M.D. [place] [facility] 2020-10-21 2020-10-21 Appointmen DELICIA WOODS [facility] [id number] Univers 14:15:00 14:15:00 t; SHEY WOODS M.D. i ty cecilia KAT M.D. [place] [facility] 2020-09-30 2020-09-30 Appointmen DELICIA WOODS Orthopedics [id number] Univers 16:00:00 16:00:00 t; SHEY WOODS M.D. - [place] Cathryn M.D. [place] [facility] 2020-09-11 2020-09-11 Appointmen DELICIA WOODS Orthopedics [id number] Univers 16:00:00 16:00:00 t; SHEY WOODS M.D. - [place] Cathryn M.D. [place] [facility] 2020-09-09 2020-09-09 Appointmen DELICIA WOODS [facility] [id number] Univers 16:00:00 16:00:00 t; SHEY WOODS M.D. i ty of Misti KAT [place] [facility] 2020-02-05 2020-02-05 Appointmen DELICIA WOODS Orthopedics [id number] Univers 09:45:00 09:45:00 t; SHEY WOODS M.D. - [place] ity cecilia KAT M.D. [facility] ans 2019-10-30 2019-10-30 Appointmen DELICIA WOODS [facility] [id number] Univers 10:15:00 10:15:00 t; SHEY WOODS M.D. i ty of Misti KAT [facility] ans 2019-08-28 2019-08-28 Appointmen DELICIA WOODS [facility] [id number] Univers 10:15:00 10:15:00 t; SHEY WOODS M.D. i ty of Misti KAT [facility] 2019-06-21 2019-06-21 Outpatient R RADIOLOGY [facility] [id number] Univers 13:43:51 23:59:00 [facility] 2019-05-22 2019-05-22 Appointmen DELICIA WOODS Orthopedics [id number] Univers 10:00:00 10:00:00 t; SHEY WOODS M.D. - [place] cecilia KAT M.D. [facility] 2019-04-18 2019-04-18 Outpatient IE [facility] [id number] Memoria 08:30:00 08:30:00 ramses Bianchi 2019-04-17 2019-04-17 Appointmen ERWIN [facility] UTP [id number] Univers 10:00:00 10:00:00 t; ERWIN CALLEJAS, ity of [place], [place] Misti GALLAGHER M.D. [facility] 2019-04-10 2019-04-10 Appointmen DELICIA WOODS UTP [id number] Univers 10:30:00 10:30:00 t; SHYE WOODS M.D. i ty of Misti KAT [facility] 2019-04-05 2019-04-05 Outpatient IE IE [id number] Memoria 13:45:00 13:45:00 09 ramses Bianchi 2019-04-02 2019-04-02 Outpatient MHIE MHIE [id number] Memoria 14:30:00 14:30:00 08 ramses Bianchi 2019-02-26 2019-02-26 Outpatient MHSE MHSE [id number] 12:18:00 12:18:00 [facility] 2019-02-13 2019-02-13 Appointmen DELICIA WOODS Orthopedics [id number] Univers 10:00:00 10:00:00 t; SHEY WOODS M.D. - [facility] Misti KAT [place] [facility] 2019-01-23 2019-01-23 Appointmen ERWIN NESBITT Orthopedics [id number] Univers 13:15:00 13:15:00 t; ERWIN CALLEJAS, - [place], [place] Misti GALLAGHER Physicstanislav Chappell ans 2019-01-16 2019-01-16 Appointmen ERWIN [facility] [id number] Univers 13:00:00 13:00:00 t; ERWIN CAL[place], [place] Misti GALLAGHER Physicstanislav [place]ell ans 2018-12-07 2018-12-07 Appointmen ERWIN [facility] Orthopedics [id number] Univers 13:00:00 13:00:00 t; ERWIN CALLEJAS, at [place], [place] Misti GALLAGHER Physicstanislav Chappell ans 2018-10-26 2018-10-26 Appointmen ERWIN [facility] Orthopedics [id number] Univers 13:30:00 13:30:00 t; ERWIN CALLEJAS, at [place], [place] Misti GALLAGHER Physicstanislav Chappell ans 2018-10-04 2018-10-04 Appointmen ERWIN [facility] Orthopedics [id number] Univers 11:00:00 11:00:00 t; ERWIN CALLEJAS, at [place], [place] Misti GALLAGHER Physicstanislav Chappell ans 2018-08-24 2018-08-24 Appointmen ALAINAMAHAD [facility] Orthopedics [id number] Univers 13:00:00 13:00:00 t; ERWIN CALLEJAS, [place], [place] Misti GALLAGHER M.D. ans 2018-06-27 2018-06-27 Appointmen [facility]AL[facility]NG [facility] [id number] Univers 10:30:00 10:30:00 t; ERWIN CALLEJASMy[place], [place] Misti GALLAGHER M.D. ans 2018-06-21 2018-06-21 Appointmen KARL-MAHAD [facility] Orthopedics [id number] Univers 11:00:00 11:00:00 t; KARL-MAHAD CALLEJAS, [place], [place] Misti GALLAGHER M.D. ans 2018-05-16 2018-05-16 Appointmen KARL-MAHAD [facility] [id number] Univers 11:00:00 11:00:00 t; KARLRAMESH ANDERSENNGMyra, [place] Misti GALLAGHER M.D. ans 2018-05-16 2018-05-16 Appointmen KARL-MAHAD [facility] Orthopedics [id number] Univers 10:30:00 10:30:00 t; ERWIN CALLEJAS, [place], [place] Misti GALLAGHER Physicstanislav Chappell ans 2018-04-18 2018-04-18 Appointmen KARL-MAHAD [facility] [id number] Univers 13:00:00 13:00:00 t; ERWIN CAL[place], [place] Misti GALLAGHER Physicstanislav Chappell ans 2018-03-29 2018-03-29 Appointmen LI-MAHAD [facility] [id number] Univers 11:00:00 11:00:00 t; [facility]AMES[facility] Leandro GALLAGHER M.D. Physicstanislav MBryon ans 2018-03-28 2018-03-28 Appointmen KARL-MAHAD [facility] [id number] Univers 13:30:00 13:30:00 t; ERWIN CALLEJAS, Medicine y of AILEEN CALLEJ[place] ANDREW, M.D. Physici M.D. ans 2018-03-07 2018-03-07 [facility] KARLRobertMAHAD [facility] [id number] Univers 13:30:00 13:30:00 t; ERWIN CALLEJAS, [facility] ty of AILEEN CALLEJAS, Orthopedics [facility] Misti Branch M.D. ans 2018-02-09 2018-02-09 Outpatient MHIE MHIE [id number] Memoria 10:00:00 10:00:00 06 ramses Bianchi 2017-12-19 2017-12-19 Outpatient MHIE MHIE [id number] Memoria 13:00:00 13:00:00 05 ramses Bianchi 2017-12-01 2017-12-01 Outpatient MHIE MHIE [id number] Memoria 09:45:00 09:45:00 04 ramses Bianchi 2017-10-12 2017-10-12 Outpatient MHIE MHIE [id number] Memoria 13:00:00 13:00:00 02 ramses Bianchi 2017-09-09 2017-09-09 Outpatient MHIE MHIE [id number] Memoria 14:45:00 14:45:00 03 ramses Bianchi 2017-07-27 2017-07-27 Outpatient MHIE MHIE [id number] Memoria 13:00:00 13:00:00 01 ramses Bianchi 2017-07-20 2017-07-20 Outpatient MHIE MHIE [id number] Memoria 15:30:00 15:30:00 00 ramses Bianchi Results Test Description Test Time Test Comments Results Result Comments Source ACT-ISTAT 2021-03-17 15:54:00 Test Item Value Reference Range Interpretation Comme nts ACT-ISTAT (test code = ACTI) 439 SEC 74-137 H Performed by certified turret punch press operator at [facility] [id number] 15:33:00 Test Item Value Reference Range Interpretation Comments ACT-ISTAT (test code 263 SEC 74-137 H Perform ed by certified = ACTI) turret punch press operator at [facility] [id number] 15:14:00 Test Item Value Reference Range Interpretation Comments ACT-ISTAT (test code 246 SEC 74-137 H Perform ed by certified = ACTI) turret punch press operator at [facility] [id number] 14:54:00 Test Item Value Reference Range Interpretation Comments ACT-ISTAT (test code 230 SEC 74-137 H Perform ed by certified = ACTI) turret punch press operator at [facility] - XR CHEST 1 [id number] 00:00:00 [facility] 1940 Sex: M FAX: Jose Rodriguez MD [phone] [place]: St: REG Name: RACHANA AMOR [facility] : 1940 Age/S: 80/M [address] [place] [address] Unit #: [id number] Loc: [place] [address] Phys: Jose Ash MD Acct: [id number] Dis Date: S tatus: REG [facility] [place] PHONE #: [phone] Exam Date: 03/17/2021734 FAX #: [phone] Reason: PRE OP EXAMS: CPT CODE: [id number] XR CHEST 1 V 11515 PROCEDURE INFORMATION: Exam: XR Chest Exam date and time: 03/17/2021 7:04 AM Age: 80 years old Clinical indication: Screening exam; Pre- operative exam; Other: Cad; Additional info: Pre op TECHNIQUE: Imaging protocol: XR of the chest. Views: 1 view. COMPARISON: DX XR CHEST 2 V 08/20/2017 2:41 PM FINDINGS: Lungs: Suggestion of underlying emphysematous changes. Pleural spaces: Unremarkable. No pleural effusion. No pneumothorax. Heart/Mediastinum: Heart size is within normal limits. Vasculature is unremarkable. Bones/joints: Mild spondylosis and facet arthropathy in the spine. IMPRESSION: 1. No acute cardiopulmonary abnormality, as detailed above. 2. Pulmonary emphysematous changes. at 0746 Reported and signed by: Erasto Adams M.D. CC: Jose Ash MD Technologist: RT Stanislaw(R) Trnscrd Date/Time/By: 03/17/2021 (0746) : By: AndreaAP24 Orig Print D/T: S: 03/17/2021 (0750) PAGE 1 Signed ReportCOVID 19 Asymptomatic IH [id number] 16:39:00 Test Item Value Reference Range Interpretation Comments COVID 19 Asymptomatic Negative Negative A nega tive result is IH AG (test code = presumpti ve and should COVNONPUIAG) be confirmedwit h an FDA authorized mole cular assay, if neces maurilio forpatient rebeka gement.A positive result does not rule out co-inf ections withother patho gens.This test detects gerry th viable (live) and non-viable,SARS -CoV, and SARS-CoV-2. Itzel t performance dep ends on theamount of vi meme (antigen) in th e sample.This itzel t has not been FDA cleare d or approved; the t est hasbeen authori zed by FDA under an Em ergency Use Authorizati on(EUA) for use by labo ratories certified under the CLIA thatmeet the requirements to perform moderate, high or waivedcomplexit y tests. COMMENTS: If not done this admissionPROTHROMBIN [id number] 16:23:00 Test Item Value Reference Range Interpretation Comments PROTHROMBIN TIME 13.0 SECONDS 9.3-12.9 H PATIENT (test code = PTP) INTERNATIONAL NORMAL 1.2 0.8-1.2 N TARGET RATIO (test code = INR BY IN DICATION INR) Indication INR1. Prophyl axis of venous thrombos is 2.0 - 3. 0 (orthopedic henrry essence), Prophylaxis of venous thrombos is (other than hig h-risk surgery), Awilda tment of Deep Vein Thrombosis/Pulm onary Embolism, Preve ntion of systemic emb olism - Tissue heart va lves, Acute Myocardia l Infarction (to prevent systemic embo lism), Valvular heart disease, Atri al Fibrillation, Bileaflet mecha nical valve in aortic position.2. Mec hanical prosthetic valv es (high risk), 2.5 - 3.5 Presence of Lupus Anticoagu lant or Antiphospholi pid Antibodies, Pre vention of systemic e mbolism - Acute Myocard ial Infarction (t o prevent recurre nt infarct). BASIC METABOLIC [id number] 16:18:00 Test Item Value Reference Range Interpretation Comments SODIUM (test code = NA) 135 mEq/L 134-147 N POTASSIUM (test code = 4.5 mEq/L 3.4-5.0 N K) CHLORIDE (test code = 100 mEq/L 100-108 N CL) CARBON DIOXIDE (test 31 mEq/l 21-33 N code = CO2) ANION GAP (test code = 9 0-20 N GAP) GLUCOSE (test code = 107 mg/dL 70-110 N GLU) BLOOD UREA NITROGEN 16 mg/dL 7-18 N (test code = BUN) GLOMERULAR FILTRATION 81.4 70-80 H Units of measure = RATE (test code = GFR) ml/mi n/1.73 m2 CREATININE (test code = 0.9 mg/dL 0.6-1.3 N CREAT) CALCIUM (test code = 8.9 mg/dL 8.0-10.5 N CA) CBC W/AUTO [id number] 16:01:00 Test Item Value Reference Range Interpretation Comments WHITE BLOOD CELL (test code = 7.4 x10 3/uL 4.5-11.0 N WBC) RED BLOOD CELL (test code = 3.45 x10 6/uL 4.00-5.60 L RBC) HEMOGLOBIN (test code = HGB) 11.4 g/dL 12.5-16.9 L HEMATOCRIT (test code = HCT) 34.3 % 37.5-50.7 L MEAN CELL VOLUME (test code = 99.4 fL 81.0-99.0 H MCV) MEAN CELL HGB (test code = MCH) 33.0 pg 27.0-33.0 N MEAN CELL HGB CONCETRATION 33.2 g/dL 33.0-37.0 N (test code = MCHC) RED CELL DISTRIBUTION WIDTH CV 12.6 % 11.5-14.5 N (test code = RDW) RED CELL DISTRIBUTION WIDTH SD 46.0 fL 37.0-54.0 N (test code = RDW-SD) PLATELET COUNT (test code = 275 x10 3/uL 150-400 N PLT) MEAN PLATELET VOLUME (test code 11.1 fL 7.0-9.0 H = MPV) NEUTROPHIL % (test code = NT%) 73.8 % 56.0-77.0 N IMMATURE GRANULOCYTE % (test 0.8 % 0.0-2.0 N code = IG%) LYMPHOCYTE % (test code = LY%) 13.7 % 14.0-32.0 L MONOCYTE % (test code = MO%) 10.5 % 4.8-9.0 H EOSINOPHIL % (test code = EO%) 0.7 % 0.3-3.7 N BASOPHIL % (test code = BA%) 0.5 % 0.0-2.0 N NUCLEATED RBC % (test code = 0.0 % 0-0 N NRBC%) NEUTROPHIL # (test code = NT#) 5.47 x10 3/uL 2.0-7.6 N IMMATURE GRANULOCYTE # (test 0.06 x10 3/uL 0.00-0.03 H code = IG#) LYMPHOCYTE # (test code = LY#) 1.02 x10 3/uL 1.0-3.8 N MONOCYTE # (test code = MO#) 0.78 x10 3/uL 0.1-0.8 N EOSINOPHIL # (test code = EO#) 0.05 x10 3/uL 0.0-0.2 N BASOPHIL # (test code = BA#) 0.04 x10 3/uL 0.0-0.2 N NUCLEATED RBC # (test code = 0.00 x10 3/uL 0.0-0.1 N NRBC#) MANUAL DIFF REQUIRED (test code NO = MDIFF) TROPONIN [id number] 22:23:25 Test Item Value Reference Interpretation Comments Range TROPONIN I (test 0.099 ng/mL See_Comment H [Automated code = 2303105468) message] The system which generated this result transmitted reference range : <=0.034. The reference range was not used to interpret this result as normal/abnormal . ROSETTA (test code = Reference (Normal) ROSETTA) Range (defined by the 99th percentile reference limit): <= 0.034 ng/mL Note: Cardiac troponin begins to rise 3-4 hours after the onset of ischemia. Repeat in 4-6 hours if the sample was drawn within 3-4 hours of the onset of the symptom and found normal. Diagnosis of myocardial injury is made with acute changes in cTn concentrations with at least one serial sample above the 99th percentile upper reference limit (URL), taken together with the patient's clinical presentation. Biotin has been reported to cause a negative bias, interpret results relative to patient's use of biotin. Lab Interpretation Abnormal (test code = 92749-3) [facility] ([id number])2021-03-11 22:13:05 Test Item Value Reference Range Interpretation Comments NA (test code = 126 mmol/L 135-145 L 5277872716) K (test code = 4.3 mmol/L 3.5-5.0 2147588502) CL (test code = 95 mmol/L 98-108 L 1148296774) CO2 TOTAL (test code = 25 mmol/L 23-31 0586289878) AGAP (test code = 2-16 7869799644) BUN (test code = 17 mg/dL 7-23 8970866024) GLUCOSE (test code = 117 mg/dL 70-110 H 6096404388) CREATININE (test code = 0.64 mg/dL 0.60-1.25 5250857684) TOTAL BILI (test code = 0.5 mg/dL 0.1-1.5 3864582615) CALCIUM (test code = 9.3 mg/dL 8.6-10.6 3048644593) T PROTEIN (test code = 6.2 g/dL 6.3-8.2 L 3102818660) ALBUMIN (test code = 3.9 g/dL 3.5-5.0 6553026923) ALK PHOS (test code = 51 U/L 34-122 1820377251) ALTv (test code = 17 U/L 5-50 2-6) AST(SGOT) (test code = 28 U/L 13-40 0495068801) eGFR (test code = mL/min/1.73m2 8259247103) ROSETTA (test code = ROSETTA) Association of Glomerular Filtration Rate (GFR) and Staging of Kidney Disease* + --+ --+ ------+| GFR (mL/min/1.73 m2) ?| With Kidney Damage ?| ?Without Kidney Damage+ --------+ --------+ +| ?>90 ?| ?Stage one ?| ? Normal ?+ ---+ ---+ -------+| ?60-89 ?| ?Stage two ?| ? Decreased GFR ? + --+ --+ ------+| ?30-59 ?| ?Stage three ?| ? Stage three ? + --+ --+ ------+| ?15-29 ?| ?Stage four ? | ? Stage four ?+ ---+ ---+ -------+| ?<15 (or dialysis) ? ?| ?Stage five ? | ? Stage five ?+ ---+ ---+ -------+ *Each stage assumes the associated GFR level has been in effect for at least three months. ?Stages 1 to 5, with or without kidney disease, indicate chronic kidney disease. Notes: Determination of stages one and two (with eGFR >59mL/min/1.73 m2) requires estimation of kidney damage for at least three months as defined by structural or functional abnormalities of the kidney, manifested by either:Pathological abnormalities or Markers of kidney damage (including abnormalities in the composition of the blood or urine or abnormalities in imaging tests). Lab Interpretation Abnormal (test code = 81053-9) [facility]ID NOW RAPID TESTING)2021-03-11 22:11:21 Test Item Value Reference Range Interpretation Comments SARS-CoV-2 Rapid ID NOW Not Detected Not Detected (test code = 28472-4) ROSETTA (test code = ROSETTA) ID NOW COVID-19 Assay is an isothermal nucleic acid amplification test intended for the qualitative detection of nucleic acid from SARS-CoV-2 viral RNA in nasopharyngeal (CUBE MACHINE TENDER) specimens. It is used under Emergency Use Authorization (EUA) by FDA. The limit of detection (LOD) of the assay is 125 Genome Equivalents/mL. A positive result is indicative of the presence of SARS-CoV-2 RNA. ?Clinical correlation with patient history and other diagnostic information is necessary to determine patient infection status. A negative (Not Detected) result does not preclude SARS-CoV-2 infection. In patients with clinical symptoms and other tests that are consistent with SARS-CoV-2 infection, negative results should be treated as presumptive negative and a new specimen should be tested with alternative PCR molecular test. Invalid: Please collect a new specimen for repeat patient testing if clinically indicated. Lab Interpretation Normal (test code = 14656-2) [facility] ChildrenPROT[facility]OMBIN TIME / [id number] 22:09:44 Test Item Value Reference Range Interpretation Comments PROTIME PATIENT (test See_Comment H [Auto mated message] code = 5964-2) The system wh ich generated this result transmitted ref erence range: 10.1 - 1 2.6 Seconds. The reference range was not used to int erpret this result as normal/abnormal . INR (test code = 6301-6) Nor mal INR <1.1; Warfarin Therap eutic range 2.0 to 3. 0 or 2.5 to 3.5, dep ending upon the indica tions. Lab Interpretation (test Abnormal code = 99306-9) [facility] ChildrenACTIVATED PARTIAL THRMPLAS [id number] 22:09:44 Test Item Value Reference Range Interpretation Comments APTT Patient (test See_Comment [Automat ed code = 3173-2) message] The system which generated this result transmitted reference range : 26 - 36 Seconds . The reference range was not used to interpr et this result as normal/abnormal . ROSETTA (test code = ROSETTA) The [facility] patient population mean normal value for aPTT is 30 seconds. Lab Interpretation Normal (test code = 65492-8) [facility] ChildrenCBC WITH [id number] 21:59:21 Test Item Value Reference Range Interpretation Comments WBC (test code = See_Comment [Automated 6690-2) message] The sy stem which generated this result transmitted reference range : 4.20 - 10.70 10*3/?L. The reference range was not used to interpret this result as normal/abnormal . RBC (test code = See_Comment L [Automated 789-8) message] The sy stem which generated this result transmitted reference range : 4.26 - 5.52 10*6/?L. The reference range was not used to interpret this result as normal/abnormal . HGB (test code = 11.9 g/dL 12.2-16.4 L 718-7) HCT (test code = 33.9 % 38.4-49.3 L 4544-3) MCV (test code = 93.9 fL 81.7-95.6 787-2) MCH (test code = 33.0 pg 26.1-32.7 H 785-6) MCHC (test code = 35.1 g/dL 31.2-35.0 H 786-4) RDW-SD (test code = 42.8 fL 38.5-51.6 39150-3) RDW-CV (test code = 12.4 % 12.1-15.4 788-0) PLT (test code = See_Comment [Automated 777-3) message] The sy stem which generated this result transmitted reference range : 150 - 328 10*3/ ?L. The reference r jonathan was not used to interpret this result as normal/abnormal . MPV (test code = 9.9 fL 9.8-13.0 58178-4) NRBC/100 WBC (test See_Comment [Automat ed code = 5019496370) message] The system which generated this result transmitted reference range : 0.0 - 10.0 /100 WBCs. The refer ence range was not u sed to interpret th is result as normal/abnormal . NRBC x10^3 (test code <0.01 See_Comment [Auto mated = 8208902492) message] The s ystem which generated this result transmitted reference range : 10*3/?L. The reference range was not used to interpret this result as normal/abnormal . GRAN MAT (NEUT) % 73.7 % (test code = 770-8) IMM GRAN % (test code 0.80 % = 4250325519) LYMPH % (test code = 13.2 % 736-9) MONO % (test code = 11.2 % 5905-5) EOS % (test code = 0.6 % 713-8) BASO % (test code = 0.5 % 706-2) GRAN MAT x10^3(ANC) 6.27 10*3/uL 1.99-6.95 (test code = 5622912335) IMM GRAN x10^3 (test 0.07 10*3/uL 0.00-0.06 H code = 4561694721) LYMPH x10^3 (test code 1.12 10*3/uL 1.09-3.23 = 731-0) MONO x10^3 (test code 0.95 10*3/uL 0.36-1.02 = 742-7) EOS x10^3 (test code = 0.05 10*3/uL 0.06-0.53 L 711-2) BASO x10^3 (test code 0.04 10*3/uL 0.01-0.09 = 704-7) Lab Interpretation Abnormal (test code = 02998-2) [facility] ChildrenXR [facility] 1 [id number] 21:22:35 No acute cardiopulmonary process. Preliminary Report Dictated by Resident: Edita Warren MD., have reviewed this study and agree with the abovereport.PROCEDURE: XR CHEST 1 VW CLINICAL INDICATION: chest pain TECHNIQUE: Frontal chest radiograph. COMPARISON: 11/01/2020 FINDINGS: The lungs are mildly hyperinflated. Biapical parenchymal fibrotic changeswith pleural thickening are similar to prior. No focal consolidation isnoted. A subcentimeter nodule in the left midlung is likely a calcifiedgranuloma. No pleural effusion or pneumothorax is seen. The heart is normal in size. No acute bony abnormality is noted. [facility], Radiant Results Inft User - 03/11/2021 4:23 PM CDT PROCEDURE: XR CHEST 1 VWCLINICAL INDICATION: chest pain TECHNIQUE: Frontal chest radiograph.COMPARISON: 11/01/2020FINDINGS:The lungs are mildly hyperinflated. Biapical parenchymal fibrotic changeswith pleural thickening are similar to prior. No focal consolidation isnoted. A subcentimeter nodule in the left midlung is likely a calcifiedgranuloma. No pleural effusion or pneumothorax is seen. The heart is normal in size.No acute bony abnormality is noted.IMPRESSIONNo acute cardiopulmonary process.Preliminary Report Dictated by Resident: Aime Rodríguez, Jeff Tran MD., have reviewed this study and agree with the abovereport.[facility] Inj/Asp: R [id number] 15:37:43Mattkeo Parrish, OUTSIDE CUTTER ? ? 02/16/2021 ?8:50 AML Inj/Asp: R knee on 01/27/2021 10:37 AMIndications: painDetails: 22 G needle, anterolateral approachMedications: 20 mg Sodium Hyaluronate 20 MG/2MLOutcome: tolerated well, no immediate complicationsProcedure, treatment alternatives, risks and benefits explained, specific risks discussed. Consent was given by the patient. Immediately prior to procedure a time out was called to verify the correct patient, procedure, equipment, technician support engineer and site/side marked as required. Patient was prepped and draped in the usual sterile fashion.[facility] Inj/Asp: R [id number] 22:23:45Mattkeo Parrish, OUTSIDE CUTTER ? ? 01/21/2021 11:11 AML Inj/Asp: R knee on 01/20/2021 5:23 PMIndications: painDetails: 21 G needle, anterolateral approachMedications: 20 mg Sodium Hyaluronate 20 MG/2MLOutcome: tolerated well, no immediate complicationsProcedure, treatment alternatives, risks and benefits explained, specific risks discussed. Consent was given by the patient. Immediately prior to procedure a time out was called to verify the correct patient, procedure, equipment, technician support engineer and site/side markedas required. Patient was prepped and draped in the usual sterile fashion.[facility] Inj/Asp: bilateral [id number] 15:46:11Shey Woods MD ? ? 02/21/2021 ?5:03 PML Inj/Asp: bilateral knee on 01/13/2021 10:46 AMIndications: painDetails: 22 G needle, anterolateral approachMedications (Right): 1 mL lidocaine 2 %; 1 mL bupivacaine0.5 %; 40 mg triamcinolone acetonide 40 MG/ML; 20 mg Sodium Hyaluronate 20 MG/2MLMedications (Left):20 mg Sodium Hyaluronate 20 MG/2MLProcedure, treatment alternatives, risks and benefits explained, specific risks discussed. Consent was given by the patient. Immediately prior to procedure a time out was called to verify the correct patient, procedure, equipment, technician support engineer and site/side marked asrequired. Patient was prepped and draped in the usual sterile fashion.[facility] L [id number] 16:53:58Drarel Parrish APRN ? ? 01/06/2021 11:08 PML Inj/Asp: L knee on 01/06/2021 11:53 AMDetails: 22 G needle,anterolateral approachMedications: 20 mg Sodium Hyaluronate 20 MG/2ML Denied allergies to iodine. Consent was given by the patient. Immediately prior to procedure a time out was called to verify the cor rect patient, procedure, equipment, technician support engineer and site/side marked as required. Patient was prepped and draped in the usual sterile fashion.[facility] Inj/Asp: L [id number] 16:10:34Shey Woods MD ? ? 01/02/2021 ?9:01 AML Inj/Asp: L knee on 01/01/2021 11:10 AMIndications: painDetails: 22 G needle, anterolateral approachMedications: 1 mL lidocaine 1 %; 1 mL bupivacaine 0.25 %; 20 mg Sodium Hyaluronate 20 MG/2MLOutcome: tolerated well, no immediate complicationsProcedure, treatment alternatives, risks and benefits explained, specific risks discussed. Immediately prior to procedure atime out was called to verify the correct patient, procedure, equipment, technician support engineer and site/side marked as required. Patient was prepped and draped in the usual sterile fashion. [facility] W [id number] 21:43:161. ?A subtle right peripheral prostatic hypodensity with adjacent subtlefat stranding likely represents prostatitis. No discrete/organizedcollection identified.2. ?Hepatic segment V 6.5 cm hemangioma; multiple smaller hemangiomas alsopresent. Preliminary Report Dictated by Resident: Jeff Roberto MD., have reviewed this study and agree with the abovereport.EXAM: CT ABDOMEN AND PEL VIS WITH CONTRAST HISTORY: 80 years-old male for evaluation of possible prostatic abscess COMPARISON: None. TECHNIQUE AND FINDINGS: Contiguous axial imaging from the level of the lungbases through theproximal thighs was performed after the administration ofintravenous Omnipaque contrast. Coronal andsagittal reconstructions wereobtained. ?Auto mA and/or iterative reconstruction were used to reduceradiation dose. FINDINGS: LOWER THORAX: The lungs bases are clear. No cardiomegaly. LIVER: A segment V 6.5 x 6.1 x 6.4 cm centrally hypodense lesion withperipheral discontinuous nodular enhancement likely represents a largehemangioma. A segment IVb lesion measures 1.2 x 1.2 cm, a segment V 1.4 x 0.7 cm, and asegment IVb 0.7 x 1.0 cm; these are ? hypoattenuating lesions withperipheral nodular enhancement, likely represent hemangiomas as well. GALLBLADDER AND BILIARY TREE: No biliary ductal dilation.?No gallbladderwall thickening. SPLEEN: No splenomegaly. PANCREAS: No ductal dilation or masses. ADRENAL GLANDS: No adrenal nodules. KIDNEYS: Bilateral mild hydroureter is noted. No hydronephrosis, stones, ormasses. PERITONEUM AND RETROPERITONEUM: No free air or fluid. LYMPH NODES: No lymphadenopathy.GI TRACT: No dilation or wall thickening. A normal appendix is gwyi420:32-42. PELVIS/BLADDER: A subtle, ill- defined area of hypodensity is seen in thebase of the prostate peripherally on the right. Thebladder appearsunremarkable. VESSELS: Unremarkable. BONES AND SOFT TISSUES: Mild lumbar degenerative changes. No suspiciouslytic or sclerotic bony lesions. [facility], Radiant Results Inft User - 11/05/2020 4:44 PM CDTEXAM: CT ABDOMEN AND PELVIS WITH CONTRASTHISTORY: 80 years-old male for evaluation of pos sible prostatic abscess COMPARISON: None.TECHNIQUE AND FINDINGS: Contiguous axial imaging from the level of the lungbases through the proximal thighs was performed after the administration ofintravenous Omnipaque contrast. Coronal and sagittal reconstructions wereobtained. Auto mA and/or iterative reconstruction were used to reduceradiation dose.FINDINGS:LOWER THORAX: The lungs bases are clear. No cardiomegaly. LIVER: A segment V 6.5 x 6.1 x 6.4 cm centrally hypodense lesion withperipheral discontinuous nodular enhancement likely represents a largehemangioma. A segment IVb lesion measures 1.2 x 1.2 cm, a segment V 1.4 x 0.7 cm, and asegment IVb 0.7 x 1.0 cm; these are hypoattenuating lesions withperipheral nodular enhancement, likely represent hemangiomas as well. GALLBLADDER AND BILIARY TREE:No biliary ductal dilation. No gallbladderwall thickening.SPLEEN: No splenomegaly.PANCREAS: No ductal dilation or masses.ADRENAL GLANDS: No adrenal nodules.KIDNEYS: Bilateral mild hydroureter is noted. No hydronephrosis, stones, ormasses.PERITONEUM AND RETROPERITONEUM: No free air or fluid.LYMPH NODES: No lymphadenopathy.GI TRACT: No dilation or wall thickening. A normal appendix is gekk364:32-42. PE LVIS/BLADDER: A subtle, ill-defined area of hypodensity is seen in thebase of the prostate peripherally on the right. The bladder appearsunremarkable. VESSELS: Unremarkable.BONES AND SOFT TISSUES: Mildlumbar degenerative changes. No suspiciouslytic or sclerotic bony lesions.IMPRESSION1. A subtle right peripheral prostatic hypodensity with adjacent subtlefat stranding likely represents prostatitis. No discrete/organizedcollection identified.2. Hepatic segment V 6.5 cm hemangioma; multiple smaller hemangiomas alsopresent.Preliminary Report Dictated by Resident: Jeff Posada MD., have reviewed this study and agree with the abovereport.[facility] ChildrenURINALYSIS2021-03-31 19:28:18 Test Item Value Reference Range Interpretation Comments APPEARANCE (test code = Clear Clear 5169451655) COLOR (test code = Straw Yellow A 9661700112) PH (test code = 4.8-8.0 1156819738) SP GRAVITY (test code = 1.003-1.030 4643392829) GLU U QUAL (test code = Normal Normal 4969210468) BLOOD (test code = Negative Negative 8120210583) KETONES (test code = Negative Negative 0407109856) PROTEIN (test code = Negative Negative 2887-8) UROBILIN (test code = Normal Normal 5026244003) BILIRUBIN (test code = Negative Negative 5169549712) NITRITE (test code = Negative Negative 3582935185) LEUK GINGER (test code = Negative Negative 6237155584) RBC/HPF (test code = See_Comment [Autom ated message] 5392613953) The system [employer] generated this result transmitted ref erence range: 0 - 3 HP F. The reference range was not used to int erpret this result as normal/abnormal . WBC/HPF (test code = <1 See_Comment [Autom ated message] 0500780305) The system [employer] generated this result transmitted ref erence range: 0 - 5 HP F. The reference range was not used to int erpret this result as normal/abnormal . BACTERIA (test code = Negative Negative 4355335758) Lab Interpretation (test Abnormal code = 69732-2) [facility]. METABOLIC PANEL ([id number])2020-11-05 19:26:49 Test Item Value Reference Range Interpretation Comments NA (test code = 133 mmol/L 135-145 L 3420963662) K (test code = 5.1 mmol/L 3.5-5.0 H 4668450930) CL (test code = 96 mmol/L 98-108 L 6688102103) CO2 TOTAL (test code = 28 mmol/L 23-31 1491091470) AGAP (test code = 2-16 2144198123) BUN (test code = 14 mg/dL 7-23 1591481379) GLUCOSE (test code = 98 mg/dL 70-110 0379259854) CREATININE (test code = 0.71 mg/dL 0.60-1.25 5853785123) TOTAL BILI (test code = 0.6 mg/dL 0.1-1.4 3155987250) CALCIUM (test code = 9.6 mg/dL 8.6-10.6 6498252167) T PROTEIN (test code = 6.8 g/dL 6.3-8.2 1337496689) ALBUMIN (test code = 4.3 g/dL 3.5-5.0 4144077238) ALK PHOS (test code = 64 U/L 34-122 3788075569) ALTv (test code = 24 U/L 5-50 1742-6) AST(SGOT) (test code = 32 U/L 13-40 0123345075) eGFR Calculation mL/min/1.73m2 (Non-) (test code = 4252252990) eGFR Calculation mL/min/1.73m2 () (test code = 4643829057) ROSETTA (test code = ROSETTA) Association of Glomerular Filtration Rate (GFR) and Staging of Kidney Disease* + --+ --+ ------+| GFR (mL/min/1.73 m2) ?| With Kidney Damage ?| ?Without Kidney Damage+ --------+ --------+ +| ?>90 ?| ?Stage one ?| ? Normal ?+ ---+ ---+ -------+| ?60-89 ?| ?Stage two ?| ? Decreased GFR ? + --+ --+ ------+| ?30-59 ?| ?Stage three ?| ? Stage three ? + --+ --+ ------+| ?15-29 ?| ?Stage four ? | ? Stage four ?+ ---+ ---+ -------+| ?<15 (or dialysis) ? ?| ?Stage five ? | ? Stage five ?+ ---+ ---+ -------+ *Each stage assumes the associated GFR level has been in effect for at least three months. ?Stages 1 to 5, with or without kidney disease, indicate chronic kidney disease. Notes: Determination of stages one and two (with eGFR >59mL/min/1.73 m2) requires estimation of kidney damage for at least three months as defined by structural or functional abnormalities of the kidney, manifested by either:Pathological abnormalities or Markers of kidney damage (including abnormalities in the composition of the blood or urine or abnormalities in imaging tests). Lab Interpretation Abnormal (test code = 21959-1) [facility] WITH [id number] 19:17:20 Test Item Value Reference Range Interpretation Comments WBC (test code = See_Comment [Automated 9985-2) message] The sy stem which generated this result transmitted reference range : 4.20 - 10.70 10*3/?L. The reference range was not used to interpret this result as normal/abnormal . RBC (test code = See_Comment L [Automated 929-8) message] The sy stem which generated this result transmitted reference range : 4.26 - 5.52 10*6/?L. The reference range was not used to interpret this result as normal/abnormal . HGB (test code = 12.9 g/dL 12.2-16.4 718-7) HCT (test code = 37.8 % 38.4-49.3 L 4544-3) MCV (test code = 92.9 fL 81.7-95.6 787-2) MCH (test code = 31.7 pg 26.1-32.7 785-6) MCHC (test code = 34.1 g/dL 31.2-35.0 786-4) RDW-SD (test code = 41.5 fL 38.5-51.6 13140-0) RDW-CV (test code = 12.3 % 12.1-15.4 788-0) PLT (test code = See_Comment [Automated 777-3) message] The sy stem which generated this result transmitted reference range : 150 - 328 10*3/ ?L. The reference r jonathan was not used to interpret this result as normal/abnormal . MPV (test code = 10.4 fL 9.8-13.0 03564-7) NRBC/100 WBC (test See_Comment [Automat ed code = 6367581378) message] The system which generated this result transmitted reference range : 0.0 - 10.0 /100 WBCs. The refer ence range was not u sed to interpret th is result as normal/abnormal . NRBC x10^3 (test code <0.01 See_Comment [Auto mated = 9642323446) message] The s ystem which generated this result transmitted reference range : 10*3/?L. The reference range was not used to interpret this result as normal/abnormal . GRAN MAT (NEUT) % 74.5 % (test code = 770-8) IMM GRAN % (test code 0.50 % = 2947907413) LYMPH % (test code = 13.2 % 736-9) MONO % (test code = 11.2 % 5905-5) EOS % (test code = 0.3 % 713-8) BASO % (test code = 0.3 % 706-2) GRAN MAT x10^3(ANC) 4.78 10*3/uL 1.99-6.95 (test code = 4632826623) IMM GRAN x10^3 (test 0.03 10*3/uL 0.00-0.06 code = 5117312328) LYMPH x10^3 (test code 0.85 10*3/uL 1.09-3.23 L = 731-0) MONO x10^3 (test code 0.72 10*3/uL 0.36-1.02 = 742-7) EOS x10^3 (test code = <0.03 0.06-0.53 L 711-2) BASO x10^3 (test code <0.03 0.01-0.09 = 704-7) Lab Interpretation Abnormal (test code = 08395-6) [id number] 14:16:47 Test Item Value Reference Range Interpretation Comments TROPONIN I (test 0.001 ng/mL See_Comment [Automated code = 4970844313) message] The system which generated this result transmitted reference range : <=0.034. The reference range was not used to interpret this result as normal/abnormal . ROSETTA (test code = Equal or Less than ROSETTA) 0.034 ng/ml---Normal ?Note: Cardiac troponin begins to rise 3-4 hours after the onset of ischemia. Repeat in 4-6 hours if the sample was drawn within 3-4 hours of the onset of the symptom and found normal. Between 0.035 and 0.120 ng/mL--- Borderline. Questionable myocardial injury or necrosis ? ?Note: Serial measurement may be necessary to confirm or exclude the diagnosis of myocardial injury or necrosis; Clinical correlation (symptoms, EKGs, imaging studies, and others) required; Repeat in 4-6 hours if clinically indicated. ? Equal or Higher than 0.121 ng/mL---Abnormal. Myocardial Injury or Necrosis Likely ? Biotin has been reported to cause a negative bias, interpret results relative to patient's use of biotin. ? Lab Interpretation Normal (test code = 19662-1) [facility] [id number] 13:40:52 No acute cardiopulmonary abnormality. Preliminary Report Dictated by Resident: Jake Yen MD., have reviewed this study and agree withthe above report.EXAM: XR CHEST1 VW HISTORY: chest tightness COMPARISON: None. TECHNIQUE: ?Single ?PA view radiograph of the chest. FINDINGS: The lungs are clear without evidence of focal consolidation, pleuraleffusion or pneumothor ax. The cardiomediastinal silhouette is normal. No acute osseous abnormality is identified. [facility], Radiant Results Inft User - 11/01/2020 8:41 AM CDTEXAM: XR CHEST 1 VWHISTORY: chest tightness COMPARISON: None.TECHNIQUE: Single PA view radiograph of the chest.FINDINGS:The lungs are clear without evidence of focal consolidation, pleuraleffusion or pneumothorax.The cardiomediastinal silhouette is normal.No acute osseous abnormality is identified.IMPRESSIONNo acute cardiopulmonary abnormality.Preliminary Report Dictated by Resident: Jake Mcelroy MD., have reviewed this study and agree withthe above report.[facility] / INR 2020-11-01 12:35:39 Test Item Value Reference Range Interpretation Comments PROTIME PATIENT (test See_Comment [Auto mated message] code = 5964-2) The system wh ich generated this result transmitted ref erence range: 12.0 - 1 4.7 Seconds. The re ference range was not u sed to interpret this result as normal/abnor mal. INR (test code = 6301-6) Nor mal INR <1.1; Warfarin Therap eutic range 2.0 to 3. 0 or 2.5 to 3.5, dep ending upon the indica tions. Lab Interpretation (test Normal code = 45136-0) [facility] ChildrenaPTT2021-03-27 12:17:58 Test Item Value Reference Range Interpretation Comments APTT Patient (test See_Comment [Automat ed code = 3173-2) message] The system which generated this result transmitted reference range : 23 - 38 Seconds . The reference range was not used to interpr et this result as normal/abnormal . ROSETTA (test code = ROSETTA) The [facility] patient population mean normal value for aPTT is 30 seconds. Lab Interpretation Normal (test code = 90519-1) [facility] [id number] 12:13:56 Test Item Value Reference Range Interpretation Comments TROPONIN I (test 0.001 ng/mL See_Comment [Automated code = 9081831385) message] The system which generated this result transmitted reference range : <=0.034. The reference range was not used to interpret this result as normal/abnormal . ROSETTA (test code = Equal or Less than ROSETTA) 0.034 ng/ml---Normal ?Note: Cardiac troponin begins to rise 3-4 hours after the onset of ischemia. Repeat in 4-6 hours if the sample was drawn within 3-4 hours of the onset of the symptom and found normal. Between 0.035 and 0.120 ng/mL--- Borderline. Questionable myocardial injury or necrosis ? ?Note: Serial measurement may be necessary to confirm or exclude the diagnosis of myocardial injury or necrosis; Clinical correlation (symptoms, EKGs, imaging studies, and others) required; Repeat in 4-6 hours if clinically indicated. ? Equal or Higher than 0.121 ng/mL---Abnormal. Myocardial Injury or Necrosis Likely ? Biotin has been reported to cause a negative bias, interpret results relative to patient's use of biotin. ? Lab Interpretation Normal (test code = 32816-0) [facility] ChildrenCOMP. METABOLIC PANEL (85245)2020-11-01 12:03:58 Test Item Value Reference Range Interpretation Comments NA (test code = 132 mmol/L 135-145 L 1236316055) K (test code = 4.1 mmol/L 3.5-5.0 3052097613) CL (test code = 101 mmol/L 98-108 4082706869) CO2 TOTAL (test code = 27 mmol/L 23-31 9669378590) AGAP (test code = 2-16 7144998249) BUN (test code = 14 mg/dL 7-23 7196248853) GLUCOSE (test code = 141 mg/dL 70-110 H 8988106584) CREATININE (test code = 0.70 mg/dL 0.60-1.25 1801084721) TOTAL BILI (test code = 0.5 mg/dL 0.1-1.3 2112961535) CALCIUM (test code = 8.9 mg/dL 8.6-10.6 5636626430) T PROTEIN (test code = 6.9 g/dL 6.3-8.2 3490451640) ALBUMIN (test code = 4.3 g/dL 3.5-5.0 2975121134) ALK PHOS (test code = 75 U/L 34-122 1671313255) ALTv (test code = 19 U/L 5-50 1742-6) AST(SGOT) (test code = 27 U/L 13-40 8412606150) eGFR Calculation mL/min/1.73m2 (Non-) (test code = 6745889401) eGFR Calculation mL/min/1.73m2 () (test code = 0472037864) ROSETTA (test code = ROSETTA) Association of Glomerular Filtration Rate (GFR) and Staging of Kidney Disease* + --+ --+ ------+| GFR (mL/min/1.73 m2) ?| With Kidney Damage ?| ?Without Kidney Damage+ --------+ --------+ +| ?>90 ?| ?Stage one ?| ? Normal ?+ ---+ ---+ -------+| ?60-89 ?| ?Stage two ?| ? Decreased GFR ? + --+ --+ ------+| ?30-59 ?| ?Stage three ?| ? Stage three ? + --+ --+ ------+| ?15-29 ?| ?Stage four ? | ? Stage four ?+ ---+ ---+ -------+| ?<15 (or dialysis) ? ?| ?Stage five ? | ? Stage five ?+ ---+ ---+ -------+ *Each stage assumes the associated GFR level has been in effect for at least three months. ?Stages 1 to 5, with or without kidney disease, indicate chronic kidney disease. Notes: Determination of stages one and two (with eGFR >59mL/min/1.73 m2) requires estimation of kidney damage for at least three months as defined by structural or functional abnormalities of the kidney, manifested by either:Pathological abnormalities or Markers of kidney damage (including abnormalities in the composition of the blood or urine or abnormalities in imaging tests). Lab Interpretation Abnormal (test code = 32700-9) [facility] ChildrenLIPASE, [id number] 12:03:58 Test Item Value Reference Range Interpretation Comments LIPASE (test code = 4742675740) 145 U/L 0-220 Lab Interpretation (test code = Normal 67827-9) [facility] ChildrenCBC WITH [id number] 11:52:13 Test Item Value Reference Range Interpretation Comments WBC (test code = See_Comment [Automated 6690-2) message] The sy stem which generated this result transmitted reference range : 4.20 - 10.70 10*3/?L. The reference range was not used to interpret this result as normal/abnormal . RBC (test code = See_Comment [Automated 789-8) message] The sy stem which generated this result transmitted reference range : 4.26 - 5.52 10*6/?L. The reference range was not used to interpret this result as normal/abnormal . HGB (test code = 13.5 g/dL 12.2-16.4 718-7) HCT (test code = 39.4 % 38.4-49.3 4544-3) MCV (test code = 92.5 fL 81.7-95.6 787-2) MCH (test code = 31.7 pg 26.1-32.7 785-6) MCHC (test code = 34.3 g/dL 31.2-35.0 786-4) RDW-SD (test code = 40.9 fL 38.5-51.6 95732-7) RDW-CV (test code = 12.0 % 12.1-15.4 L 788-0) PLT (test code = See_Comment [Automated 777-3) message] The sy stem which generated this result transmitted reference range : 150 - 328 10*3/ ?L. The reference r jonathan was not used to interpret this result as normal/abnormal . MPV (test code = 10.7 fL 9.8-13.0 66103-4) NRBC/100 WBC (test See_Comment [Automat ed code = 4291780652) message] The system which generated this result transmitted reference range : 0.0 - 10.0 /100 WBCs. The refer ence range was not u sed to interpret th is result as normal/abnormal . NRBC x10^3 (test code <0.01 See_Comment [Auto mated = 9063919487) message] The s ystem which generated this result transmitted reference range : 10*3/?L. The reference range was not used to interpret this result as normal/abnormal . GRAN MAT (NEUT) % 74.0 % (test code = 770-8) IMM GRAN % (test code 0.40 % = 5868196418) LYMPH % (test code = 15.0 % 736-9) MONO % (test code = 9.2 % 5905-5) EOS % (test code = 0.8 % 713-8) BASO % (test code = 0.6 % 706-2) GRAN MAT x10^3(ANC) 3.80 10*3/uL 1.99-6.95 (test code = 1410549140) IMM GRAN x10^3 (test <0.03 0.00-0.06 code = 6136100580) LYMPH x10^3 (test code 0.77 10*3/uL 1.09-3.23 L = 731-0) MONO x10^3 (test code 0.47 10*3/uL 0.36-1.02 = 742-7) EOS x10^3 (test code = 0.04 10*3/uL 0.06-0.53 L 711-2) BASO x10^3 (test code 0.03 10*3/uL 0.01-0.09 = 704-7) Lab Interpretation Abnormal (test code = 90533-0) [facility] SCROTUM AND [id number] 14:04:51 No evidence of epididymoorchitis. Bilateral epididymal cysts. Bilateral trace hydroceles. Mild prominence of vessels within the right hemiscrotum. However, they donot meet criteria for varicocele. Correlate clinically.SCROTAL ULTRASOUND TECHNIQUE: Grayscale, color and spectral Doppler images of the scrotum wereobtained. INDICATION: Left scrotal tenderness COMPARISON: ?Scrotal ultrasound from 06/21/2019 FINDINGS: ? Right testes measures 3.5 x 2.0 x 2.9 cm. Left testis measures 3.3 x 1.7 x2.7 cm. No focal abnormalities are seen. The epididymides are within normal limits in size. Right epididymiscontains two 3 mm epididymal cysts. Left epididymis contains a 5 mm and 2mm epididymal cysts. Normal vascular flow to both testes and epididymides are seen on colorDoppler evaluation. Trace bilateral hydroceles are present. There is mild prominence of thepampiniform plexuses vessels on the right. However,these vessels measureless than 3 mm in diameter and demonstrates essentially change withValsalva maneuver (do not meet criteria for varicocele). There is no evidence of abnormal skin thickening. [facility],Radiant Results Inft User - 10/31/2020 9:05 AM CDTSCROTAL ULTRASOUNDTECHNIQUE: Grayscale, color andspectral Doppler images of the scrotum wereobtained.INDICATION: Left scrotal tendernessCOMPARISON: Scrotal ultrasound from 06/21/2019FINDINGS: Right testes measures 3.5 x 2.0 x 2.9 cm. Left testis measures 3.3 x 1.7 x2.7 cm. No focal abnormalities are seen. The epididymides are within normal limits in size. Right epididymiscontains two 3 mm epididymal cysts. Left epididymis contains a 5 mm and 2mm epididymal cysts.Normal vascular flow to both testes and epididymides are seen on colorDoppler evaluation.Trace bilateral hydroceles are present. There is mild prominence of thepampiniform plexuses vessels on the right. However, these vessels measureless than 3 mm in diameter and demonstrates essentially change withValsalva maneuver (do not meet criteria for varicocele). There is no evidence of abnormal skin thickening.IMPRESSIONNo evidence of epididymoorchitis.Bilateral epididymal cysts.Bilateral trace hydroceles.Mild prominence of vessels within the right hemiscrotum. However, they donot meet criteria for varicocele. Correlate clinically.[facility] [id number] 13:40:47 Test Item Value Reference Range Interpretation Comments APPEARANCE (test code = Hazy Clear A 1159344478) COLOR (test code = Yellow Yellow 7423506669) PH (test code = 4.8-8.0 0381249480) SP GRAVITY (test code = 1.003-1.030 2823573286) GLU U QUAL (test code = 500 mg/dL Normal A 3451858767) BLOOD (test code = Negative Negative 1783264103) KETONES (test code = Negative Negative 7296229451) PROTEIN (test code = Negative Negative 2887-8) UROBILIN (test code = Normal Normal 8187115442) BILIRUBIN (test code = Negative Negative 6681613917) NITRITE (test code = Negative Negative 6016795342) LEUK GINGER (test code = Negative Negative 9645957844) RBC/HPF (test code = See_Comment [Autom ated message] 2577658772) The system [employer] generated this result transmit sabino reference range : 0 - 3 HPF. The refe rence range was not u sed to interpret th is result as normal/abnormal . WBC/HPF (test code = <1 See_Comment [Autom ated message] 7114467432) The system [employer] generated this result transmit sabino reference range : 0 - 5 HPF. The refe rence range was not u sed to interpret th is result as normal/abnormal . BACTERIA (test code = Negative Negative 2629608406) MUCOUS (test code = Slight Negative LPF A 1017817567) Lab Interpretation (test Abnormal code = 15680-0) [facility][U] XRAY SHOULDER MIN 2 VWS LEFT [id number] 2019-02-13 09:14:00Images acquired, not reported on this accession number. [facility] Shoulder wo contrast [id number] 12:39:00 EXAM: Left shoulder wo contrast MRIINDICATION: - S43.82XA Sprain of other specified parts of leftshouldergirdle, initial encounterCOMPARISON: MRI of the left shoulder from 03/18/2018TECHNIQUE: Multiplanar, multisequence magnetic resonance imaging of the leftshoulder was performed without the administration of intravenous gadoliniumcontrast.FINDINGS:Glenohumeral joint: Negative for acute bony fracture or [...] and lesser tuberosities are seen.Osseous acromion complex: Theacromion is type II in morphology and showslateral [...] Incidental noteis made of an accessory slip ofthe long head of the biceps tendon whichinserts on the supraspinatus tendon.Soft tissues: Trace fluid in the subacromial-subdeltoid bursa is seen. Nomuscular atrophy or denervation edema is noted.IMPRESSION:1. Constellation of findings suspicious for adhesive capsulitis.2. Tear throughout the inferiorand anteroinferior glenoid labrum.3. Mild supraspinatus tendinosis with low-grade bursal surface fraying of thedistal tendon.4. Mild subscapularis tendinosis with low to moderate grade interstitialtearing, slightly progressed since prior exam from 03/18/2018.5. 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 Please correlate forsubacromial impingement.SL: [id number] by: Yasmani Alfredo MDDictated Date/time:10/16/18 14:28Electronically Signed by: Yasmani Alfredo MD 10/16/1913:40FINAL REPORT [facility] Shoulder wo contrast [id number] 12:30:00 EXAM: Left shoulder wo contrast MRIINDICATION: S43.439A Superior glenoid labrum lesion of unspecified shoulder,initial encounter - S43.439A Superior glenoid labrum lesion of unspecifiedshoulder, initial encounterCOMPARISON: None.TECHNIQUE: Multiplanar, multisequence magnetic resonance imaging of the leftshoulder was performed without the administration of intravenous gadoliniumcontrast.FINDINGS:Glenohumeral joint: Negative for acute bony fracture or [...] Theinfraspinatus and teres minor tendons are intact.Biceps tendon:Intact and without subluxation or dislocation.Soft tissues: Trace fluid in the subacromial-subdeltoid bursa is seen. Nomuscular atrophy or denervation edema is noted.IMPRESSION:1. Mild supraspinatus and subscapularis tendinosis.2. Low-grade interstitial tearing of the distal subscapularis tendon.3. Mild AC joint osteoarthrosis with mild anterior downsloping of the acromion,producing mild narrowing ofthe supraspinatus outlet laterally. Pleasecorrelate for subacromial impingement.4. Mild subacromial-subdeltoid bursitis.SL: [id number]--Pslt by: Yasmani Alfredo MDDictated Date/time: 03/18/18 14:05Electronically Signed by: Yasmani Alfredo MD 03/18/1814:11FINAL REPORTUnM[facility]"
== END 2021-06-09 17:35 | disposition home or self-care (01) ==
LOC: ER 08:23 → ERHOLD 12:53 → 2ND 19:14
PROVIDERS: ADMIT Hospitalist; ATTEND Internal Medicine
DX: R07.9 Chest pain, unspecified (principal); I48.20 Chronic atrial fibrillation, unspecified; R42 Dizziness and giddiness; I10 Essential (primary) hypertension; E78.00 Pure hypercholesterolemia, unspecified; G35 Multiple sclerosis; I25.10 Atherosclerotic heart disease of native coronary artery without angina pectoris; Z66 Do not resuscitate; Z20.822 Contact with and (suspected) exposure to COVID-19
CPT/HCPCS: 93005; 93017; 85025 ×2; 80048; 36415; 83735 ×2; 85610; 80076; 84443; 84484 ×4; 84439; 80053; 83880; 70450; 71045; 70553; 70544; 70549; 97161; 94760 ×3; 78452; 99284; U0003; A9577; J2785; A9500; G0378 ×3; 81003; 81015